=== PATIENT | female | born 1945 | race Caucasian/White ===

== ENCOUNTER 2018-12-06 22:01 | Emergency (ER) | payer MEDICARE ==
[2018-12-06 22:09] VITALS: RESP 20
--- NOTE | 2018-12-06 23:00 | ED ---
Extremity Problem HPI - General Chief complaint: Extremity Problem,Nontraumatic Stated complaint: Swollen leg Time Seen by Provider: 12/06/18 22:16 Source: patient, family Mode of arrival: wheelchair Limitations: no limitations - History of Present Illness Initial comments: Patient is 73-year-old female presenting to emergency Department with a chief co mplaint of leg swelling. Patient reports she has recently been started on Eliquis. Patient reports she woke up this morning and noticed a "lump" in the left infrapatellar region. Patient denies any erythema. Patient denies trauma to the region. Patient reports the left lower extremity is discolored due to multiple surgeries. Patient reports she is on a maintenance dose of Doxy. Patient reports she previously had cellulitis in that region. Patient denies any calf tenderness. Patient denies shortness of breath. Patient denies any fevers or chills. Patient reports bilateral lower extremity edema at baseline - Related Data Allergies Allergy/AdvReac Type Severity Reaction Status Date / Time No Known Allergies Allergy Verified 12/06/18 22:08 Review of Systems ROS Statement: Those systems with pertinent positive or pertinent negative responses have been documented in the HPI. ROS Other: All systems not noted in ROS Statement are negative. Past Medical History Past Medical History: Atrial Fibrillation Additional Past Medical History / Comment(s): MS History of Any Multi-Drug Resistant Organisms: MRSA Date of last positivie culture/infection: 2009 MDRO Source:: left knee Past Surgical History: Joint Replacement Past Psychological History: Depression Smoking Status: Former smoker Past Alcohol Use History: None Reported Past Drug Use History: None Reported General Exam Limitations: no limitations General appearance: alert, in no apparent distress, obese Head exam: Present: atraumatic, normocephalic, normal inspection Eye exam: Present: normal appearance, PERRL, EOMI Pupils: Present: normal accommodation ENT exam: Present: normal exam, mucous membranes moist, normal external ear exam Neck exam: Present: normal inspection, full ROM Respiratory exam: Present: normal lung sounds bilaterally, respiratory distress, rhonchi Cardiovascular Exam: Present: regular rate, normal rhythm, normal heart sounds Extremities exam: Absent: normal inspection, calf tenderness Course Vital Signs 12/06/18 12/07/18 22:04 00:37 Temperature 97.8 F 97.6 F Pulse Rate 89 93 Respiratory 20 20 Rate Blood Pressure 107/68 134/73 O2 Sat by Pulse 97 96 Oximetry Medical Decision Making - Medical Decision Making Patient is 73-year-old male presenting to emergency Department with a chief complaint of a lump in the leg. She reports she noticed an enlarged area near the left infrapatellar region. She does not have any pain with palpation or at rest. Negative Homans bilaterally. On physical examination the slightly edematous area does not appear to be infected. No erythema or discharge noted. No induration. Patient has no fever or chills. Patient is on a maintenance dose of doxycycline. X-ray of the left leg is unremarkable except for subcutaneous edema. Patient advised to follow up primary care. Strict return parameters were thoroughly discussed with the patient who was understanding and agreeable. Case discussed physician. Disposition Clinical Impression: Left leg swelling Disposition: HOME SELF-CARE Condition: Stable Instructions (If sedation given, give patient instructions): Leg Edema (ED) Additional Instructions: Please follow with primary care. Please return to emergency department if symptoms worsen. Is patient prescribed a controlled substance at d/c from ED?: No Referrals: Ji Shepherd DO [Primary Care Provider] - 1-2 days Time of Disposition: 00:28
--- NOTE | 2018-12-07 00:15 | XR ---
LEFT TIB/FIB, 2 VIEWS INDICATION: Infrapatellar swelling COMPARISON: None FINDINGS: AP and lateral views of the left tibia-fibula are provided. There is a left total knee arthroplasty with cemented tibial component. There is no significant periprosthetic lucency. The bones are severely osteopenic. No acute fracture is identified. There is generalized subcutaneous edema. IMPRESSION: 1. No visible fracture. 2. Visualized distal portion of a left total knee arthroplasty without evident hardware complication. 3. Generalized subcutaneous edema.
[2018-12-07 00:38] VITALS: BP 134/73; PULSE 93; TEMP 97.6
== END 2018-12-07 00:41 | disposition home or self-care (01) ==
LOC: EC 22:01
DX: M79.89 Other specified soft tissue disorders (principal); Z87.891 Personal history of nicotine dependence; Z96.652 Presence of left artificial knee joint
CPT/HCPCS: 99283

== ENCOUNTER 2022-06-12 17:28 | Inpatient (IN) | payer MEDICARE, OTHER ==
[2022-06-12 19:03] LABS: Glucose,Whole Blood 115 mg/dL (70-110)
[2022-06-12 19:25] LABS: Anisocytosis Slight; Basophils % (A) 0 %; Eosinophils % (A) 0 %; HGB 7.4 gm/dL (11.4-16.0); Hypochromasia Slight; Lymphocytes # (A) 0.4 k/uL (1.0-4.8); Lymphocytes % (A) 10 %; MCH 29.3 pg (25.0-35.0); MCHC 30.9 g/dL (31.0-37.0); MCV 94.9 fL (80.0-100.0); Mean Platelet Volume 8.4; Monocytes # (A) 0.3 k/uL (0-1.0); Monocytes % (A) 8 %; Neutrophils % (A) 79 %; Platelet Count 133 k/uL (150-450); RBC 2.52 m/uL (3.80-5.40); RDW 17.8 % (11.5-15.5); WBC 3.8 k/uL (3.8-10.6)
--- NOTE | 2022-06-12 19:34 | XR ---
EXAMINATION TYPE: XR chest 1V DATE OF EXAM: 06/12/2022 7:27 PM COMPARISON: none TECHNIQUE: XR chest 1V Portable AP radiograph of the chest. CLINICAL INDICATION:Female, 77 years old with history of altered mental status; FINDINGS: Lungs/Pleura: There is no evidence of pleural effusion, focal consolidation, or pneumothorax. Pulmonary vascularity: Pulmonary vascular congestion. Heart/mediastinum: Cardiomediastinal silhouette is enlarged . Musculoskeletal: No acute osseous pathology. IMPRESSION: Generalized hazy appearance of the lungs Correlate with BNP for congestive heart failure.
[2022-06-12 19:36] LABS: Albumin 2.9 g/dL (3.5-5.0); Calcium 7.7 mg/dL (8.4-10.2); Potassium 4.6 mmol/L (3.5-5.1); Total Bilirubin 1.8 mg/dL (0.2-1.3); Total Protein 5.5 g/dL (6.3-8.2)
--- NOTE | 2022-06-12 20:27 | CT ---
EXAMINATION TYPE: CT brain wo con CT DLP: 1213.4 mGycm, Automated exposure control for dose reduction was used. DATE OF EXAM: 06/12/2022 7:54 PM COMPARISON: None. CLINICAL INDICATION:Female, 77 years old with history of altered mental status, AMS TECHNIQUE: Brain: Axial CT images of the brain were obtained with coronal and sagittal reformats created and rev iewed. Contrast used: None. Oral contrast used: None. FINDINGS: Brain: Extra-axial spaces: No abnormal extra-axial fluid collections. Ventricular system: Dilatation in proportion to cerebral atrophy. Cerebral parenchyma: Cerebral atrophy. No acute intraparenchymal hemorrhage or mass effect. The alvarez -white junction is well differentiated. Cerebellum: Unremarkable. Mass effect: No evidence of midline shift. Intracranial vasculature: unremarkable Soft tissues: Normal. Calvarium/osseous structures: No depressed skull fracture. Paranasal sinuses and mastoid air cells: Mild scattered paranasal sinus disease. Visualized orbits: Orbital contents are intact. IMPRESSION: No acute intracranial process.
[2022-06-12 21:30] LABS: ABG Base Excess -1.1 mmol/L; ABG HCO3 22 mmol/L (21-25); ABG Oxygen Saturation 98.9 % (94-97); ABG PCO2 29 mmHg (35-45); ABG PH 7.49 (7.35-7.45); ABG PO2 99 mmHg (83-108); ABG TCO2 23 mmol/L (19-24); Allen Test Performed? Yes
[2022-06-12] MEDS ORDERED: SODIUM CHLORIDE 0.9% 1,000 ML IV ONE (21:44)
--- NOTE | 2022-06-12 22:38 | ED ---
Altered Mental Status HPI - General Chief Complaint: Altered Mental Status Stated Complaint: AMS Time Seen by Provider: 06/12/22 18:22 Source: EMS Mode of arrival: EMS Limitations: altered mental status - History of Present Illness Initial Comments: This patient is a 77-year-old woman who is sent from [facility] to have evaluation of altered mental status. The transfer paperwork does not make clear exactly how long this has been going on. The transfer paperwork does state that the patient was given a dose of Rocephin, a dose of ondansetron and some IV fluid. It is not clear at this point if the patient had actual vomiting or was complaining of nausea. It is noted that the patient's was confused. Here on arrival, the patient is not giving history. MD Complaint: altered mental status -: unknown Severity: severe Consistency of Symptoms: unknown - Related Data Home Medications Medication Instructions Recorded Confirmed Aspirin 81 mg PO DAILY 06/12/22 06/19/22 Clopidogrel [Plavix] 75 mg PO DAILY 06/12/22 06/19/22 Cranberry Fruit [Cranberry] 465 mg PO BID 06/12/22 06/19/22 Dextran/Hypromellose/Glycerin 2 drops BOTH EYES BID@0800,1600 06/12/22 06/19/22 [Genteal Tears 0.1%-0.2%-0.3%] Ferrous Sulfate [Iron (65 MG 325 mg PO DAILY@1800 06/12/22 06/19/22 Elemental)] Furosemide [Lasix] 40 mg PO BID@0800,1600 06/12/22 06/19/22 Lactobacillus Acidophilus 1 cap PO DAILY 06/12/22 06/19/22 [Acidophilus] Levothyroxine Sodium [Synthroid] 137 mcg PO DAILY@0600 06/12/22 06/19/22 Loratadine [Claritin] 10 mg PO DAILY 06/12/22 06/19/22 Magnesium Chloride- Calcium 1 tab PO DAILY 06/12/22 06/19/22 64-106mg Melatonin 3 mg PO HS 06/12/22 06/19/22 Mirabegron [Myrbetriq] 50 mg PO DAILY 06/12/22 06/19/22 Multivitamins, Thera [Multivitamin 1 tab PO DAILY 06/12/22 06/19/22 (formulary)] Pantoprazole [Protonix] 40 mg PO DAILY 06/12/22 06/19/22 Potassium Chloride ER [K-Dur 20] 20 meq PO BID-W/MEALS 06/12/22 06/19/22 Spironolactone 25 mg PO DAILY 06/12/22 06/19/22 bisacodyL [Dulcolax] 10 mg PO HS 06/12/22 06/19/22 Calcium Carbonate [Calcium] 600 mg PO DAILY 06/19/22 06/19/22 levETIRAcetam [Keppra] 500 mg PO BID 06/19/22 06/19/22 Previous Rx's Medication Instructions Recorded Levofloxacin [Levaquin] 250 mg PO DAILY 6 Days #6 tablet 06/17/22 Allergies Allergy/AdvReac Type Severity Reaction Status Date / Time No Known Allergies Allergy Verified 06/19/22 20:03 Review of Systems ROS Statement: Those systems with pertinent positive or pertinent negative responses have been documented in the HPI. ROS Other: All systems not noted in ROS Statement are negative. Limitations: ROS unobtainable due to patients medical condition Constitutional: Denies: fever Past Medical History Past Medical History: Atrial Fibrillation, GERD/Reflux, Hypertension, Thyroid Disorder Additional Past Medical History / Comment(s): MS History of Any Multi-Drug Resistant Organisms: MRSA Date of last positivie culture/infection: 2009 MDRO Source:: left knee Past Surgical History: Unable to Obtain, Joint Replacement Past Psychological History: Depression Past Alcohol Use History: None Reported Past Drug Use History: None Reported General Exam Limitations: altered mental status General appearance: obtunded Head exam: Present: atraumatic, normocephalic Eye exam: Present: normal appearance, PERRL. Absent: scleral icterus, conjun ctival injection ENT exam: Present: mucous membranes dry Neck exam: Present: normal inspection. Absent: tenderness Respiratory exam: Present: rales, rhonchi. Absent: respiratory distress, wheezes, stridor, accessory muscle use Cardiovascular Exam: Present: regular rate, normal rhythm, normal heart sounds. Absent: systolic murmur, diastolic murmur, rubs, gallop GI/Abdominal exam: Present: soft. Absent: distended, tenderness, guarding, rebound, rigid, mass Extremities exam: Present: normal capillary refill, pedal edema. Absent: tenderness Neurological exam: Present: altered. Absent: motor sensory deficit Expanded Cranial nerves: Gag Reflex: Normal Eye Response: (3) open to voice Motor Response: (6) obeys commands Verbal Response: incomprehensible sounds Gonsalo Total: 12 Skin exam: Present: warm, dry, intact, normal color. Absent: rash Course Vital Signs 06/12/22 06/12/22 06/12/22 17:37 18:46 20:00 Temperature 99.1 F Pulse Rate 77 79 76 Respiratory 18 18 15 Rate Blood Pressure 90/44 97/46 104/44 O2 Sat by Pulse 97 96 97 Oximetry 06/12/22 06/12/22 06/12/22 20:01 22:21 22:40 Temperature Pulse Rate 75 73 Respiratory 15 14 Rate Blood Pressure 101/42 101/62 110/66 O2 Sat by Pulse 96 97 Oximetry 06/12/22 06/12/22 06/12/22 23:00 23:20 23:51 Temperature Pulse Rate 68 68 78 Respiratory 13 14 12 Rate Blood Pressure 112/48 84/39 105/52 O2 Sat by Pulse 97 97 98 Oximetry 06/13/22 06/13/22 06/13/22 00:16 01:31 03:18 Temperature 97.6 F Pulse Rate 73 77 71 Respiratory 14 12 14 Rate Blood Pressure 108/49 113/51 108/53 O2 Sat by Pulse 98 98 97 Oximetry 06/13/22 04:09 Temperature Pulse Rate 79 Respiratory 12 Rate Blood Pressure 104/54 O2 Sat by Pulse 97 Oximetry Procedures - Sepsis Sepsis Focused Exam #1 Capillary Refill: < 2 Seconds: Fingers Peripheral Pulses: Normal: Radial (R) Skin Color: Flushed Respiratory Exam: rales, rhonchi Cardiovascular Exam: regular rate, normal rhythm Medical Decision Making - Medical Decision Making This patient is 77-year-old woman sent from [facility] for altered mental status. The patient had chest x-ray which I interpreted as not showing acute infiltrate or pneumothorax. Possible congestive heart failure The patient had CT brain which I interpreted as not showing acute bony trauma or any cerebral hemorrhage I did have discussion with the patient's next of carey, namely her son and [id number]. Additional history reveals that the patient had somewhat similar presentation with past urinary tract infection. She does have urinary tract infection today. Patient is started on IV antibiotics fluids, and admitted for further care. I had discussion of the patient's CODE STATUS and they state that at this point they would like her to remain full code, though they would reconsider if she were sicker with no prospect of recovery. Was pt. sent in by a medical professional or institution (ROBERTO Huff, [employer] ASS[employer] SUPERVIS[employer] CHASSIS, urgent care, hospital, or [facility]...) When possible be specific @ -[Sent from [facility] Did you speak to anyone other than the patient for history (EMS, parent, family, police, friend...)? What history was obtained from this source @ -[Case discussed with family members Did you review nursing and triage notes (agree or disagree)? Why? @ -[I reviewed and agree with nursing and triage notes] Were old charts reviewed (outside hosp., previous admission, EMS record, old EKG, old radiological studies, urgent care reports/EKG's, [facility] records)? Report findings @ -[[facility] transfer papers reviewed, previous records reviewed Differential Diagnosis (chest pain, altered mental status, abdominal pain women, abdominal pain men, vaginal bleeding, weakness, fever, dyspnea, syncope, headache, dizziness, GI bleed, back pain, seizure, CVA, palpatations, mental health, musculoskeletal)? @ -Differential Altered Mental Status: Hypoglycemia, DKA, hypercapnia, ETOH, overdose, CO poisoning, trauma, myxedema coma, HTN encephalopathy, infection, encephalitis, psychosis, intercranial hemorrhage, hepatic encephalopathy, meningitis, CVA, this is not meant to be an all-inclusive list EKG interpreted by me (3pts min.). @ -[As above] X-rays interpreted by me (1pt min.). @ -[As above CT interpreted by me (1pt min.). @ -[As above U/S interpreted by me (1pt. min.). @ -[None done] What testing was considered but not performed or refused? (CT, X-rays, U/S, labs)? Why? @ -[None] What meds were considered but not given or refused? Why? @ -[None] Did you discuss the management of the patient with other professionals (donna quesada i.e. ROBERTO Huff, [employer] SUPER[employer], lab, RT, psych nurse, social media designer, cutting machine fixer, teacher, health officer, briefcase sewer)? Give summary @ -[Case discussed with admitting physician Was smoking cessation discussed for >3mins.? @ -[No] Was critical care preformed (if so, how long)? @ -[No] Were there social determinants of health that impacted care today? How? (Homelessness, low income, unemployed, alcoholism, drug addiction, transportation, low edu. Level, literacy, decrease access to med. care, penitentiary, rehab)? @ -[No] Was there de-escalation of care discussed even if they declined (Discuss DNR or withdrawal of care, Hospice)? DNR status @ -[Yes What co-morbidities impacted this encounter? (DM, HTN, Smoking, COPD, CAD, Cancer, CVA, ARF, Chemo, Hep., AIDS, mental health diagnosis, sleep apnea, morbid obesity)? @ -[None] Was patient admitted / discharged? Hospital course, mention meds given and route, prescriptions, significant lab abnormalities, going to OR and other pertinent info. @ -[Admitted Undiagnosed new problem with uncertain prognosis? @ -[No] Drug Therapy requiring intensive monitoring for toxicity (Heparin, Nitro, Insulin, Cardizem)? @ -[No] Were any procedures done? @ -[No] Diagnosis/symptom? @ -[1. Acute altered mental status 2. Acute urinary tract infection, complicated 3. Chronic anemia Acute, or Chronic, or Acute on Chronic? @ -[default] Uncomplicated (without systemic symptoms) or Complicated (systemic symptoms)? @ -[default] Side effects of treatment? @ -[No] Exacerbation, Progression, or Severe Exacerbation? @ -[No] Poses a threat to life or bodily function? How? (Chest pain, [place], [place], pneumonia, PE, COPD, DKA, ARF, appy, cholecystitis, CVA, Diverticulitis, Homicidal, Suicidal, threat to staff... and all critical care pts) @ -[Yes - Lab Data Result diagrams: 06/17/22 05:59 06/17/22 05:59 Lab Results 06/12/22 06/12/22 06/12/22 Range/Units 18:57 19:03 19:03 WBC 3.8 (3.8-10.6) k/uL RBC 2.52 L (3.80-5.40) m/uL Hgb 7.4 L (11.4-16.0) gm/dL Hct 24.0 L (34.0-46.0) % MCV 94.9 (80.0-100.0) fL MCH 29.3 (25.0-35.0) pg MCHC 30.9 L (31.0-37.0) g/dL RDW 17.8 H (11.5-15.5) % Plt Count 133 L (150-450) k/uL MPV 8.4 Neutrophils % 79 % Lymphocytes % 10 % Monocytes % 8 % Eosinophils % 0 % Basophils % 0 % Neutrophils # 3.0 (1.3-7.7) k/uL Lymphocytes # 0.4 L (1.0-4.8) k/uL Monocytes # 0.3 (0-1.0) k/uL Eosinophils # 0.0 (0-0.7) k/uL Basophils # 0.0 (0-0.2) k/uL Hypochromasia Slight Anisocytosis Slight Sample Site ABG pH (7.35-7.45) ABG pCO2 (35-45) mmHg ABG pO2 (83-108) mmHg ABG HCO3 (21-25) mmol/L ABG Total CO2 (19-24) mmol/L ABG O2 Saturation (94-97) % ABG Base Excess mmol/L Kennedy Test FiO2 % Sodium 139 (137-145) mmol/L Potassium 4.6 (3.5-5.1) mmol/L Chloride 109 H (98-107) mmol/L Carbon Dioxide 22 (22-30) mmol/L Anion Gap 8 mmol/L BUN 47 H (7-17) mg/dL Creatinine 1.51 H (0.52-1.04) mg/dL Est GFR (CKD-EPI)AfAm 38 (>60 ml/min/1.73 sqM) Est GFR (CKD-EPI)NonAf 33 (>60 ml/min/1.73 sqM) Glucose 103 H (74-99) mg/dL POC Glucose (mg/dL) 115 H (70-110) mg/dL POC Glu Baggage And Mail Agent ID Rama Liz Calcium 7.7 L (8.4-10.2) mg/dL Total Bilirubin 1.8 H (0.2-1.3) mg/dL AST 26 (14-36) U/L ALT 17 (4-34) U/L Alkaline Phosphatase 58 (38-126) U/L Troponin I (0.000-0.034) ng/mL NT-Pro-B Natriuret Pep pg/mL Total Protein 5.5 L (6.3-8.2) g/dL Albumin 2.9 L (3.5-5.0) g/dL Procalcitonin (0.02-0.09) ng/mL TSH (0.350-5.500) uIU/mL Urine Color Urine Appearance (Clear) Urine pH (5.0-8.0) Ur Specific [place] (1.001-1.035) Urine Protein (Negative) Urine Glucose (UA) (Negative) Urine Ketones (Negative) Urine Blood (Negative) Urine Nitrite (Negative) Urine Bilirubin (Negative) Urine Urobilinogen (<2.0) mg/dL Ur Leukocyte Esterase (Negative) Urine RBC (0-5) /hpf Urine WBC (0-5) /hpf Urine Bacteria (None) /hpf Urine Mucus (None) /hpf Coronavirus (PCR) (Not Detectd) 06/12/22 06/12/22 06/12/22 Range/Units 19:03 21:21 21:49 WBC (3.8-10.6) k/uL RBC (3.80-5.40) m/uL Hgb (11.4-16.0) gm/dL Hct (34.0-46.0) % MCV (80.0-100.0) fL MCH (25.0-35.0) pg MCHC (31.0-37.0) g/dL RDW (11.5-15.5) % Plt Count (150-450) k/uL MPV Neutrophils % % Lymphocytes % % Monocytes % % Eosinophils % % Basophils % % Neutrophils # (1.3-7.7) k/uL Lymphocytes # (1.0-4.8) k/uL Monocytes # (0-1.0) k/uL Eosinophils # (0-0.7) k/uL Basophils # (0-0.2) k/uL Hypochromasia Anisocytosis Sample Site left radial ABG pH 7.49 H (7.35-7.45) ABG pCO2 29 L (35-45) mmHg ABG pO2 99 (83-108) mmHg ABG HCO3 22 (21-25) mmol/L ABG Total CO2 23 (19-24) mmol/L ABG O2 Saturation 98.9 H (94-97) % ABG Base Excess -1.1 mmol/L Kennedy Test Yes FiO2 21 % Sodium (137-145) mmol/L Potassium (3.5-5.1) mmol/L Chloride (98-107) mmol/L Carbon Dioxide (22-30) mmol/L Anion Gap mmol/L BUN (7-17) mg/dL Creatinine (0.52-1.04) mg/dL Est GFR (CKD-EPI)AfAm (>60 ml/min/1.73 sqM) Est GFR (CKD-EPI)NonAf (>60 ml/min/1.73 sqM) Glucose (74-99) mg/dL POC Glucose (mg/dL) (70-110) mg/dL POC Glu Baggage And Mail Agent ID Calcium (8.4-10.2) mg/dL Total Bilirubin (0.2-1.3) mg/dL AST (14-36) U/L ALT (4-34) U/L Alkaline Phosphatase (38-126) U/L Troponin I <0.012 (0.000-0.034) ng/mL NT-Pro-B Natriuret Pep 1370 pg/mL Total Protein (6.3-8.2) g/dL Albumin (3.5-5.0) g/dL Procalcitonin (0.02-0.09) ng/mL TSH (0.350-5.500) uIU/mL Urine Color Urine Appearance (Clear) Urine pH (5.0-8.0) Ur Specific [place] (1.001-1.035) Urine Protein (Negative) Urine Glucose (UA) (Negative) Urine Ketones (Negative) Urine Blood (Negative) Urine Nitrite (Negative) Urine Bilirubin (Negative) Urine Urobilinogen (<2.0) mg/dL Ur Leukocyte Esterase (Negative) Urine RBC (0-5) /hpf Urine WBC (0-5) /hpf Urine Bacteria (None) /hpf Urine Mucus (None) /hpf Coronavirus (PCR) (Not Detectd) 06/12/22 06/12/22 06/12/22 Range/Units 21:49 21:49 22:12 WBC (3.8-10.6) k/uL RBC (3.80-5.40) m/uL Hgb (11.4-16.0) gm/dL Hct (34.0-46.0) % MCV (80.0-100.0) fL MCH (25.0-35.0) pg MCHC (31.0-37.0) g/dL RDW (11.5-15.5) % Plt Count (150-450) k/uL MPV Neutrophils % % Lymphocytes % % Monocytes % % Eosinophils % % Basophils % % Neutrophils # (1.3-7.7) k/uL Lymphocytes # (1.0-4.8) k/uL Monocytes # (0-1.0) k/uL Eosinophils # (0-0.7) k/uL Basophils # (0-0.2) k/uL Hypochromasia Anisocytosis Sample Site ABG pH (7.35-7.45) ABG pCO2 (35-45) mmHg ABG pO2 (83-108) mmHg ABG HCO3 (21-25) mmol/L ABG Total CO2 (19-24) mmol/L ABG O2 Saturation (94-97) % ABG Base Excess mmol/L Kennedy Test FiO2 % Sodium (137-145) mmol/L Potassium (3.5-5.1) mmol/L Chloride (98-107) mmol/L Carbon Dioxide (22-30) mmol/L Anion Gap mmol/L BUN (7-17) mg/dL Creatinine (0.52-1.04) mg/dL Est GFR (CKD-EPI)AfAm (>60 ml/min/1.73 sqM) Est GFR (CKD-EPI)NonAf (>60 ml/min/1.73 sqM) Glucose (74-99) mg/dL POC Glucose (mg/dL) (70-110) mg/dL POC Glu Baggage And Mail Agent ID Calcium (8.4-10.2) mg/dL Total Bilirubin (0.2-1.3) mg/dL AST (14-36) U/L ALT (4-34) U/L Alkaline Phosphatase (38-126) U/L Troponin I (0.000-0.034) ng/mL NT-Pro-B Natriuret Pep pg/mL Total Protein (6.3-8.2) g/dL Albumin (3.5-5.0) g/dL Procalcitonin 0.12 H (0.02-0.09) ng/mL TSH 2.890 (0.350-5.500) uIU/mL Urine Color Urine Appearance (Clear) Urine pH (5.0-8.0) Ur Specific [place] (1.001-1.035) Urine Protein (Negative) Urine Glucose (UA) (Negative) Urine Ketones (Negative) Urine Blood (Negative) Urine Nitrite (Negative) Urine Bilirubin (Negative) Urine Urobilinogen (<2.0) mg/dL Ur Leukocyte Esterase (Negative) Urine RBC (0-5) /hpf Urine WBC (0-5) /hpf Urine Bacteria (None) /hpf Urine Mucus (None) /hpf Coronavirus (PCR) Not Detected (Not Detectd) 06/12/22 Range/Units 22:32 WBC (3.8-10.6) k/uL RBC (3.80-5.40) m/uL Hgb (11.4-16.0) gm/dL Hct (34.0-46.0) % MCV (80.0-100.0) fL MCH (25.0-35.0) pg MCHC (31.0-37.0) g/dL RDW (11.5-15.5) % Plt Count (150-450) k/uL MPV Neutrophils % % Lymphocytes % % Monocytes % % Eosinophils % % Basophils % % Neutrophils # (1.3-7.7) k/uL Lymphocytes # (1.0-4.8) k/uL Monocytes # (0-1.0) k/uL Eosinophils # (0-0.7) k/uL Basophils # (0-0.2) k/uL Hypochromasia Anisocytosis Sample Site ABG pH (7.35-7.45) ABG pCO2 (35-45) mmHg ABG pO2 (83-108) mmHg ABG HCO3 (21-25) mmol/L ABG Total CO2 (19-24) mmol/L ABG O2 Saturation (94-97) % ABG Base Excess mmol/L Kennedy Test FiO2 % Sodium (137-145) mmol/L Potassium (3.5-5.1) mmol/L Chloride (98-107) mmol/L Carbon Dioxide (22-30) mmol/L Anion Gap mmol/L BUN (7-17) mg/dL Creatinine (0.52-1.04) mg/dL Est GFR (CKD-EPI)AfAm (>60 ml/min/1.73 sqM) Est GFR (CKD-EPI)NonAf (>60 ml/min/1.73 sqM) Glucose (74-99) mg/dL POC Glucose (mg/dL) (70-110) mg/dL POC Glu Baggage And Mail Agent ID Calcium (8.4-10.2) mg/dL Total Bilirubin (0.2-1.3) mg/dL AST (14-36) U/L ALT (4-34) U/L Alkaline Phosphatase (38-126) U/L Troponin I (0.000-0.034) ng/mL NT-Pro-B Natriuret Pep pg/mL Total Protein (6.3-8.2) g/dL Albumin (3.5-5.0) g/dL Procalcitonin (0.02-0.09) ng/mL TSH (0.350-5.500) uIU/mL Urine Color Yellow Urine Appearance Turbid H (Clear) Urine pH 7.5 (5.0-8.0) Ur Specific [place] 1.016 (1.001-1.035) Urine Protein 1+ H (Negative) Urine Glucose (UA) Negative (Negative) Urine Ketones Trace H (Negative) Urine Blood Large H (Negative) Urine Nitrite Negative (Negative) Urine Bilirubin Negative (Negative) Urine Urobilinogen 4.0 (<2.0) mg/dL Ur Leukocyte Esterase Large H (Negative) Urine RBC >182 H (0-5) /hpf Urine WBC >182 H (0-5) /hpf Urine Bacteria Many H (None) /hpf Urine Mucus Few H (None) /hpf Coronavirus (PCR) (Not Detectd) - EKG Data -: EKG Interpreted by Me EKG shows normal: sinus rhythm, axis (Normal), intervals (Normal), QRS complexes (Low-voltage QRS complex. Possible old anterior infarct.) Rate: normal (Rate 75 bpm) Critical Care Time Critical Care Time: Yes (30 minutes) Disposition Clinical Impression: Altered mental status, Urinary tract infection, Anemia Disposition: ADMITTED IP TO THIS [facility] Condition: Stable
[2022-06-12 22:47] LABS: Appearance,Urine Turbid (Clear); Bacteria,Urine Many /hpf; Bilirubin,Urine Negative (Negative); Blood,Urine Large (Negative); Color,Urine Yellow; Glucose,Urine (UA) Negative (Negative); Ketones,Urine Trace (Negative); Leukocyte Esterase,Urine Large (Negative); Mucus,Urine Few /hpf; Nitrite,Urine Negative (Negative); PH, Urine 7.5 (5.0-8.0); Protein,Urine 1+ (Negative); RBC,Urine >182 /hpf (0-5); Specific Gravity,Urine 1.016 (1.001-1.035); WBC,Urine >182 /hpf (0-5)
[2022-06-12] MEDS ORDERED: ACETAMINOPHEN TAB 325 MG TAB PO PRN (22:51)
[2022-06-12] MEDS ORDERED: NALOXONE 0.4 MG/ML 1 ML VIAL IV PRN (22:51)
[2022-06-12] MEDS ORDERED: SODIUM CHLORIDE 0.9% 1,000 ML IV SCH (23:00)
--- NOTE | 2022-06-12 23:23 | CT ---
EXAMINATION TYPE: CT abdomen pelvis wo con DATE OF EXAM: 06/12/2022 COMPARISON: None HISTORY: ABD PAIN CT DLP: 2548 mGycm Automated exposure control for dose reduction was used. Images obtained from the diaphragm to the floor the pelvis with no contrast. There is small right pleural effusion. Heart size is fairly normal. No pericardial effusion. There is mild interstitial increased density at the lung bases. The spleen is enlarged and measures 16.5 cm. The stomach appears intact. Gallbladder is intact. The b ile ducts are nondilated. No sign of pancreatic mass. There is a large staghorn calculus in the right kidney. The calculus measures 6 cm in length. No hydronephrosis. Ureters are not dilated. No retrope ritoneal adenopathy. Bladder distends smoothly. There is left hip prosthesis. Sacroiliac joints are i ntact. The bony pelvis is intact. There is subcutaneous edema around the abdomen and pelvis. There is posterior fusion surgery with rods and screws from L3 to L5. There is 25% compression deform ity of L5. There is osteopenia. No evidence of ascites or free air. No sign of a bowel obstruction. There is retained fecal material throughout the large bowel. IMPRESSION: Constipation. Splenomegaly. Large right side staghorn renal calculus. Subcutaneous edema around the abdomen with right pleural effusion. This could be some mild chronic he art failure. Mild interstitial infiltrates at the lung bases.
[2022-06-12] MEDS ORDERED: SODIUM CHLORIDE 0.9% 500 ML 500 ML IV STA (23:28)
--- NOTE | 2022-06-13 03:44 | P.HPIM ---
History of Present Illness H&P Date: 06/12/22 Chief Complaint: altered mental status 77 year old female with hypothyroid , afib patient is a NHR, she was sent in here for altered mental status, patient unable to provide any meaningful history , which was obtained by reviewing medical records. transfer records does not indicate duration , or baseline of patient . it seems like she had similar scenario in the past where she was found to have UTI at the time. patient baseline is unknown, [facility], and she is full code. patient is non verbal , sleeping , resists opening eyes, or moving her extremities. resists opening mouth , but when left alone , she takes a more relaxed posture. vital signs stable no other history available at this time Review of Systems ROS unobtainable: due to mental status Past Medical History Past Medical History: Atrial Fibrillation, GERD/Reflux, Hypertension, Thyroid Disorder Additional Past Medical History / Comment(s): MS History of Any Multi-Drug Resistant Organisms: MRSA Date of last positivie culture/infection: 2009 MDRO Source:: left knee Past Surgical History: Unable to Obtain, Joint Replacement Past Psychological History: Depression Past Alcohol Use History: None Reported Past Drug Use History: None Reported Medications and Allergies Home Medications Medication Instructions Recorded Confirmed Type Aspirin 81 mg PO DAILY 06/12/22 06/12/22 History Calcium Carbonate/Vitamin D3 1 tab PO DAILY 06/12/22 06/12/22 History [Calcium 600 mg-Vit D3 5 mcg (200 unit)] Clopidogrel [Plavix] 75 mg PO DAILY 06/12/22 06/12/22 History Cranberry Fruit [Cranberry] 465 mg PO BID 06/12/22 06/12/22 History Cyclobenzaprine [Flexeril] 10 mg PO Q8H PRN 06/12/22 06/12/22 History Dextran/Hypromellose/Glycerin 2 drops BOTH EYES BID 06/12/22 06/12/22 History [Genteal Tears 0.1%-0.2%-0.3%] Doxycycline Monohydrate 100 mg PO BID 06/12/22 06/12/22 History Ferrous Sulfate [Feosol] 325 mg PO HS 06/12/22 06/12/22 History Furosemide [Lasix] 40 mg PO BID 06/12/22 06/12/22 History Lactobacillus Acidophilus 1 cap PO DAILY 06/12/22 06/12/22 History [Acidophilus] Levothyroxine Sodium [Synthroid] 137 mcg PO DAILY 06/12/22 06/12/22 History Lidocaine/Menthol [Icy Hot 4%-1% 1 patch TOPICAL DAILY PRN 06/12/22 06/12/22 History Patch] Loratadine [Claritin] 10 mg PO DAILY 06/12/22 06/12/22 History Magnesium Chloride- Calcium 1 tab PO DAILY 06/12/22 06/12/22 History 64-106mg Melatonin 3 mg PO HS PRN 06/12/22 06/12/22 History Mirabegron [Myrbetriq] 50 mg PO DAILY 06/12/22 06/12/22 History Multivitamins, Thera [Multivitamin 1 tab PO HS 06/12/22 06/12/22 History (formulary)] Pantoprazole [Protonix] 40 mg PO DAILY 06/12/22 06/12/22 History Potassium Chloride ER [K-Dur 20] 40 meq PO BID-W/MEALS 06/12/22 06/12/22 History Promethazine HCl 12.5 mg PO Q6H PRN 06/12/22 06/12/22 History Spironolactone 25 mg PO DAILY 06/12/22 06/12/22 History bisacodyL [Dulcolax] 10 mg PO HS PRN 06/12/22 06/12/22 History traMADol HCL 50 mg PO Q12H PRN 06/12/22 06/12/22 History Allergies Allergy/AdvReac Type Severity Reaction Status Date / Time No Known Allergies Allergy Verified 06/12/22 20:12 Physical Exam Vitals: Vital Signs Temp Pulse Resp BP Pulse Ox 06/12/22 20:01 75 15 101/42 96 06/12/22 20:00 76 15 104/44 97 06/12/22 18:46 79 18 97/46 96 06/12/22 17:37 99.1 F 77 18 90/44 97 Intake and Output 06/12/22 06/12/22 06/12/22 06:59 14:59 22:59 Other: Weight 108.862 kg Constitutional: non verbal , resists opening eyes, resists moving her extremities, does not follow commands, then she assumes a more relaxed posture when left alone. Eyes: scleral jaundice, moist conjunctiva, Pupils equal round reactive to light ENMT: NC/AT resists opening her mouth Neck: no masses, or JVD No carotid bruits No thyromegaly Lungs: Clear to auscultation Clear to percussion Normal respiratory effort, no accessory muscle use Cardiovascular: Heart regular in rate and rhythm, No murmurs, gallops, or rubs +3 bilateral peripheral edema Abdominal: Soft Nontender, no guarding, rebound or rigidity Abdomen moving with respiration Normoactive bowel sounds No hepatomegaly, No splenomegaly No palpable mass No abdominal wall hernia noted Skin: Normal temperature, tone, texture, turgor chronic skin changes of bilateral lower extremities Extremities: No digital cyanosis No clubbing Pedal pulses intact and symmetrical Radial pulses intact and symmetrical No calf tenderness Psychiatric: patient resists care, sleeping , resists opening eyes, non Verbal , unknown baseline Neuro unable to perform proper neuro exam , when attempting to move her leg or arms, she tense up and resists passive movement Lymphatics: no palpable cervical or supraclavicular lymph nodes Results CBC & Chem 7: 06/12/22 19:03 06/12/22 19:03 Labs: Abnormal Lab Results - Last 24 Hours (Table) 06/12/22 06/12/22 06/12/22 Range/Units 18:57 19:03 19:03 RBC 2.52 L (3.80-5.40) m/uL Hgb 7.4 L (11.4-16.0) gm/dL Hct 24.0 L (34.0-46.0) % MCHC 30.9 L (31.0-37.0) g/dL RDW 17.8 H (11.5-15.5) % Plt Count 133 L (150-450) k/uL Lymphocytes # 0.4 L (1.0-4.8) k/uL Chloride 109 H (98-107) mmol/L BUN 47 H (7-17) mg/dL Creatinine 1.51 H (0.52-1.04) mg/dL Glucose 103 H (74-99) mg/dL POC Glucose (mg/dL) 115 H (70-110) mg/dL Calcium 7.7 L (8.4-10.2) mg/dL Total Bilirubin 1.8 H (0.2-1.3) mg/dL Total Protein 5.5 L (6.3-8.2) g/dL Albumin 2.9 L (3.5-5.0) g/dL Assessment and Plan Assessment: 77 year old female , [facility] in [facility] for altered mental status , I discussed the case with ED doc, limited history available at this time , suspected UTI, I accepted the admission , will start IV antibiotics, and rule out other causes of encephalpathy with anticipated length of stay > 2 midnights acute metabolic encephalopathy UTI , initiate on rocephine 2 gm IVPB daily , follow up cultures rule out seizure , check prolactin level , check EEG CT brain no acute pathology neuro checks , neurology consult CXR hazy changes bilateral lungs , DC IVF, due to CXR changes , peripheral edema initiate lasix IVP 40 mg BID elevated BUN 47 Cr 1.5 unknown if this is RANULFO or CKD monitor renal function , and urine output avoid nephrotoxic meds CT abd showed abd wall edema , pleural effusion , otherwise no acute pathology check echocardiogram check TSH level and free t4 jaundice with elevated bili otherwise liver enzymes unremarkable continue to monitor ABG showed respiratory alkalosis , no hypoxemia check d dimer anemia , hemoglobin 7.4 no reported GI bleeding no evidence of GI bleeding check occult blood test monitor hemoglobin full code DVT PPX mechanical fall precautions
[2022-06-13] MEDS: HEPARIN SODIUM,PORCINE/PF 5,000 UNIT/0.5 ML SYRINGE SQ SCH ×2 (08:17→21:20)
[2022-06-13] MEDS: FUROSEMIDE 10 MG/ML 4 ML VIAL IV SCH ×2 (08:17→21:21)
--- NOTE | 2022-06-13 08:20 | US ---
EXAMINATION TYPE: US venous doppler duplex LE BI DATE OF EXAM: 06/13/2022 7:26 AM COMPARISON: NONE CLINICAL HISTORY: dvt. Septic patient with UTI, large habitus, patient did not respond to questioning SIDE PERFORMED: Bilateral TECHNIQUE: The lower extremity deep venous system is examined utilizing real time linear array sonog nikolas with graded compression, doppler sonography and color-flow sonography. VESSELS IMAGED: Common Femoral Vein Deep Femoral Vein Greater Saphenous Vein * Femoral Vein Popliteal Vein Small Saphenous Vein * Proximal Calf Veins (* superficial vessels) non diagnostic exam due to extensive edema that obscured view of vessels. Right Leg: CFV and FV flow seen, unable to image other vessels due to edema and habitus Left Leg: FV and Pop V flow seen, unable to images other vessels due to edema dn habitus IMPRESSION: Markedly limited examination due to extensive edema that obscures vessels within both lower extremiti es. There is flow demonstrated within the right lower extremity common femoral and femoral veins and left lower extremity femoral and popliteal veins. The remaining vessels are not visualized.
[2022-06-13] MEDS ORDERED: LEVOTHYROXINE IVP 100 MCG/5 ML VIAL IV SCH (09:00)
--- NOTE | 2022-06-13 13:27 | P.CNNES ---
History of Present Illness Consult date: 06/13/22 Requesting physician: Josue Sandhu Reason for Consult: Encephalopathy History of Present Illness: Patient is a 77-year-old female, with history of MS, in remission, paraparesis, nonambulatory status, currently living in [facility] for last 1 year was brought to the hospital by ambulance yesterday at 5:28 PM for altered mental status. Patient's sister was present at this time. She had missed week to patient's son and [id number], who provided with history. They mentioned that patient has history of MS, but is in remission. She has not walked in the last 15 years and is sit to stand transfers, cannot self transfer. Patient used to live with her son and [id number], but in the last 1 year, they were not able to take care of the patient therefore she was moved to [facility]. Patient had previous hist ory of back surgery as well 7 years ago. She hasn't had any flareups of MS, has never tried any disease modifying medications. She is not actively following up with a neurologist. Mentally she is otherwise perfectly fine. 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 Patient was fine on Friday, 2 days prior to arrival. Family got a call from the shelter yesterday (Friday) that she vomited for which they gave her Zofran and then she was lethargic. They felt patient was dehydrated, and try to give some IV fluids. About a couple hours later, they called the son again, saying that the patient was unresponsive, and they were taking her to the hospital. As per EMS flow sheet, when they arrived, patient had altered level of consciousness. Patient was alert to verbal stimuli. Patient will open eyes to voice and then closes them immediately with no response. Prior to [facility] an IV in the patient. Patient's face was symmetric and both pupils equal. EKG shows sinus rhythm. Patient's blood glucose was 131. Patient's blood pressure 100/39 and the repeat was 101/43 and then 90/48. Pulse rate 80, respiration 16 saturation 99%. Temperature 98.7 axillary. Blood pressure on arrival 90/44 pulse rate 99.1 axillary. Blood test shows normal WBC hemoglobin 7.4, platelets 133. Electrolytes are normal, BUN 47, creatinine 1.51. Hepatic panel normal. TSH normal. Bruce virus PCR negative. Prolactin 24.1, UA shows large amount of leukocyte esterase, more than 182 WBC, more than 182 RBC and many bacteria. Urine culture is pending. Patient has been started on ceftriaxone 2 g every 24 hours, Patient at home was taking tramadol 50 mg twice a day when necessary, promethazine 12.5 mg every 6 hours when necessary, Flexeril 10 mg every 8 hours when necessary, aspirin 81 mg, Aldactone 25 mg, potassium, Protonix, Mirabegron, melatonin, Plavix 75 mg, levothyroxine, doxycycline, ferrous sulfate, cranberry. CT head showed no acute intracranial process. Chest x-ray with generalized hazy appearance of the lungs. Correlate with BNP for congestive heart failure. CT abdomen and pelvis revealed constipation, splenomegaly. Large right-sided staghorn renal calculus. Subcutaneous edema around the abdomen with right pleural effusion. This could be some mild chronic heart failure. Mild interstitial infiltrates at the lung bases. EKG shows sinus rhythm venous Doppler showed no definitive DVT. Exam was limited. No history of tobacco or alcohol use. She is not diabetic. Patient has history of atrial fibrillation, for which she used to be on Eliquis. She underwent placement of watchman device on 05/28/2022 at [facility]. Anticoagulants were stopped. Patient also had some blood loss, for which they are not sure if aspirin was continued or was also stopped. Patient has had UTIs in the past but never had mental status like this. Review of Systems ROS unobtainable: due to mental status Past Medical History Past Medical History: Atrial Fibrillation, GERD/Reflux, Hypertension, Thyroid Disorder Additional Past Medical History / Comment(s): MS, watchman device History of Any Multi-Drug Resistant Organisms: MRSA Date of last positivie culture/infection: 2009 MDRO Source:: left knee Past Surgical History: Unable to Obtain, Joint Replacement Past Psychological History: Depression Smoking Status: Never smoker Past Alcohol Use History: None Reported Past Drug Use History: None Reported Medications and Allergies Home Medications Medication Instructions Recorded Confirmed Type Aspirin 81 mg PO DAILY 06/12/22 06/12/22 History Calcium Carbonate/Vitamin D3 1 tab PO DAILY 06/12/22 06/12/22 History [Calcium 600 mg-Vit D3 5 mcg (200 unit)] Clopidogrel [Plavix] 75 mg PO DAILY 06/12/22 06/12/22 History Cranberry Fruit [Cranberry] 465 mg PO BID 06/12/22 06/12/22 History Cyclobenzaprine [Flexeril] 10 mg PO Q8H PRN 06/12/22 06/12/22 History Dextran/Hypromellose/Glycerin 2 drops BOTH EYES BID 06/12/22 06/12/22 History [Genteal Tears 0.1%-0.2%-0.3%] Doxycycline Monohydrate 100 mg PO BID 06/12/22 06/12/22 History Ferrous Sulfate [Feosol] 325 mg PO HS 06/12/22 06/12/22 History Furosemide [Lasix] 40 mg PO BID 06/12/22 06/12/22 History Lactobacillus Acidophilus 1 cap PO DAILY 06/12/22 06/12/22 History [Acidophilus] Levothyroxine Sodium [Synthroid] 137 mcg PO DAILY 06/12/22 06/12/22 History Lidocaine/Menthol [Icy Hot 4%-1% 1 patch TOPICAL DAILY PRN 06/12/22 06/12/22 History Patch] Loratadine [Claritin] 10 mg PO DAILY 06/12/22 06/12/22 History Magnesium Chloride- Calcium 1 tab PO DAILY 06/12/22 06/12/22 History 64-106mg Melatonin 3 mg PO HS PRN 06/12/22 06/12/22 History Mirabegron [Myrbetriq] 50 mg PO DAILY 06/12/22 06/12/22 History Multivitamins, Thera [Multivitamin 1 tab PO HS 06/12/22 06/12/22 History (formulary)] Pantoprazole [Protonix] 40 mg PO DAILY 06/12/22 06/12/22 History Potassium Chloride ER [K-Dur 20] 40 meq PO BID-W/MEALS 06/12/22 06/12/22 History Promethazine HCl 12.5 mg PO Q6H PRN 06/12/22 06/12/22 History Spironolactone 25 mg PO DAILY 06/12/22 06/12/22 History bisacodyL [Dulcolax] 10 mg PO HS PRN 06/12/22 06/12/22 History traMADol HCL 50 mg PO Q12H PRN 06/12/22 06/12/22 History Allergies Allergy/AdvReac Type Severity Reaction Status Date / Time No Known Allergies Allergy Verified 06/12/22 20:12 Physical Examination - Vital Signs Vital Signs: Vital Signs Temp Pulse Pulse Resp BP BP Pulse Ox 06/13/22 06:58 83 16 125/73 100 06/13/22 05:38 97.9 F 83 19 110/57 100 06/13/22 04:09 79 12 104/54 97 06/13/22 03:18 97.6 F 71 14 108/53 97 06/13/22 01:31 77 12 113/51 98 06/13/22 00:16 73 14 108/49 98 06/12/22 23:51 78 12 105/52 98 06/12/22 23:20 68 14 84/39 97 06/12/22 23:00 68 13 112/48 97 06/12/22 22:40 110/66 06/12/22 22:21 73 14 101/62 97 06/12/22 20:01 75 15 101/42 96 06/12/22 20:00 76 15 104/44 97 06/12/22 18:46 79 18 97/46 96 06/12/22 17:37 99.1 F 77 18 90/44 97 Intake and Output 06/12/22 06/13/22 06/13/22 22:59 06:59 14:59 Output Total 1000 Balance -1000 Output: Urine 1000 Other: Voiding Method Diaper External Catheter External Catheter # Voids 1 Weight 108.862 kg 108.862 kg Patient is an elderly female, who is obtunded, lethargic, encephalopathic. Patient obtunded. She is not speaking any words. She only moaned when her left arm was abducted to check for temperature. Patient not following any commands, not speaking any words. Speech and language functions cannot be assessed. Patient sometimes taking deep breathing. No obvious seizure activity noted. Attention, concentration and fund of knowledge cannot be assessed because of severe obtundation. Patient's neck appears quite stiff. Her arms and legs are also stiff. On cranial nerve examination, pupils are equal, round and reacting to light, visual reynaga could not be tested. Patient has slight head and mild gaze deviation to the right. Extraocular muscles could not be tested. Her face is symmetric, lower cranial nerves cannot be tested. On muscle strength testing, patient did not cooperate with testing of the upper extremities, which is normal at baseline. She is extremely rigid in both upper limbs, with some decerebrate posturing of the right arm. Patient is paraplegic, which is chronic. Deep tendon reflexes are trace in the upper limbs, absent in the lower limbs. Plantars is upgoing on the right, flat on the left. Sensory to touch could not be assessed, but patient moans with painful stimuli on either side. Cerebellar function cannot be assessed. Tone is severely increased in bilateral upper limbs and bulk of muscles normal. Gait patient nonambulatory On general examination, there is no carotid bruit or murmur, S1-S2 audible. Chest is clear on consultation. Abdomen is soft nontender. No organomegaly, bowel sounds present. Peripheral pulses are present. No edema. Results - Laboratory Findings CBC and BMP: 06/12/22 19:03 06/12/22 19:03 Abnormal Lab Findings: Abnormal Labs 06/12/22 06/12/22 06/12/22 18:57 19:03 19:03 RBC 2.52 L Hgb 7.4 L Hct 24.0 L MCHC 30.9 L RDW 17.8 H Plt Count 133 L Lymphocytes # 0.4 L D-Dimer ABG pH ABG pCO2 ABG O2 Saturation Chloride 109 H BUN 47 H Creatinine 1.51 H Glucose 103 H POC Glucose (mg/dL) 115 H Calcium 7.7 L Total Bilirubin 1.8 H Total Protein 5.5 L Albumin 2.9 L Procalcitonin Urine Appearance Urine Protein Urine Ketones Urine Blood Ur Leukocyte Esterase Urine RBC Urine WBC Urine Bacteria Urine Mucus 06/12/22 06/12/22 06/12/22 21:21 21:49 22:32 RBC Hgb Hct MCHC RDW Plt Count Lymphocytes # D-Dimer ABG pH 7.49 H ABG pCO2 29 L ABG O2 Saturation 98.9 H Chloride BUN Creatinine Glucose POC Glucose (mg/dL) Calcium Total Bilirubin Total Protein Albumin Procalcitonin 0.12 H Urine Appearance Turbid H Urine Protein 1+ H Urine Ketones Trace H Urine Blood Large H Ur Leukocyte Esterase Large H Urine RBC >182 H Urine WBC >182 H Urine Bacteria Many H Urine Mucus Few H 03/23/23 03:16 RBC Hgb Hct MCHC RDW Plt Count Lymphocytes # D-Dimer 2.81 H ABG pH ABG pCO2 ABG O2 Saturation Chloride BUN Creatinine Glucose POC Glucose (mg/dL) Calcium Total Bilirubin Total Protein Albumin Procalcitonin Urine Appearance Urine Protein Urine Ketones Urine Blood Ur Leukocyte Esterase Urine RBC Urine WBC Urine Bacteria Urine Mucus Assessment and Plan Assessment: * Altered mental status, likely due to toxic metabolic encephalopathy. Patient has an acute UTI. * Patient is severely rigid in the arms and legs, unclear cause, rule out CVA, possible related to underlying MS with acute TME, rule out NMS * History of multiple sclerosis, in remission. Patient is paraplegic, nonambulatory. * Atrial fibrillation, status post placement of watchman device on 05/28/2022. * Staghorn calculus * Obesity * History of back surgery Plan: * CT head showed no acute process. * EEG to rule out any epileptiform activity * 2D-ECHO * B12, folate, CPK. CPK is normal. * Patient has acute UTI. Patient started on Rocephin 2 g every 24 hours. * MRI brain, rule out CVA. Patient has watchman device, therefore need clearance for watchman device before MRI. * Consider lumbar puncture, although probable UTI may be contributing to TME. * Neurology will follow. Thank you for the consult.
[2022-06-13] MEDS ORDERED: bisacodyL 5 MG TABLET.DR PO PRN (14:09)
--- NOTE | 2022-06-13 14:19 | P.PN ---
Subjective Progress Note Date: 06/13/22 Hospital Course: 77-year-old female, longterm resident with a history of MS, hypothyroidism, atrial fibrillation presenting with acute encephalopathy. Per sister, patient is alert and oriented at baseline. She is at longterm due to reduced functional mobility, is currently bedbound. However, she has not had any issues with her mental status. Occasionally she gets urinary tract infection which affects her mentation, but not to this degree. Since presented to the ED, diya ent vital signs were within normal limits. Lab work showed hemoglobin of 7.4, platelet 133, pH 7.49, pCO2 29, creatinine 1.51, BUN 47, TSH 2.89, pro calcitonin 0.12, prolactin 24.1, urinalysis showed large leukocyte esterase, negative nitrites. D-dimer was elevated at 2.81. CT head showed no acute process. CT abdomen and pelvis showed constipation, splenomegaly, large right- sided staghorn renal calculus, mild right pleural effusion. Subjective: Patient seen and examined at bedside. No acute events overnight. Patient is not awake or alert, appears very lethargic. Pertinent positives and negatives as discussed above, a complete review of systems was performed and all other systems are negative. Vitals Signs Reviewed. General: Obtunded Derm: warm, dry Head: atraumatic, normocephalic, symmetric Eyes: Pupils equal and reactive, no scleral icterus Mouth: no lip lesion, mucus membranes moist Cardiovascular: S1S2 reg, no murmur Lungs: CTA bilateral, no rhonchi, no rales , no accessory muscle use Abdominal: soft, nontender to palpation, no guarding, no appreciable organomegaly Ext: no gross muscle atrophy, bilateral lower extremity edema Neuro: No focal deficits, but patient has muscle rigidity Psych: Unable to assess Data Reviewed Today: Pertinent Labs: D-dimer 2.81, lactate 1.6, prolactin 24.1, TSH 2.89 Assessment and Plan: Patient is critically ill, minimally responsive, currently being treated with IV antibiotics. He to rule out seizure and other causes for metabolic encephalopathy. Active: Acute metabolic encephalopathy Urinary tract infection History of kidney stones History of MS Muscular rigidity Right pleural effusion History of CHF Normocytic anemia and thrombocytopenia Elevated BUN and creatinine Hyperbilirubinemia Constipation History of Hypothyroidism -Nephrology consulted this morning, had a personal discussion about management with neurology, EEG pending, patient may need LP. -Continue ceftriaxone 2 g IV every 24 hours -Urine culture pending -Blood cultures ordered -Patient currently on IV diuretics 40 mg Lasix twice a day -Echocardiogram pending -Unsure what her EF is -Unsure what her baseline hemoglobin is, repeat CBC tomorrow -Unsure why patient is on aspirin and Plavix -Per sister, patient had a watchman procedure recently -Holding aspirin and Plavix in case we need an LP -Unsure about baseline renal function, repeat BMP tomorrow -Hyperbilirubinemia likely the setting of acute infection -Bisacodyl suppository for constipation -Currently on IV levothyroxine has patient is unable to tolerate oral intake -Some of the home medications have been reconciled, but will only be able to take it when patient able to tolerate oral DVT ppx: Subcu heparin Code status: Full code Anticipated discharge place: Pending clinical course Anticipated discharge time: Pending clinical course Objective - Vital Signs Vital signs: Vital Signs Temp 98.5 F 06/13/22 13:06 Pulse 83 06/13/22 06:58 Resp 16 06/13/22 06:58 BP 125/73 06/13/22 06:58 Pulse Ox 100 06/13/22 06:58 FiO2 Intake & Output 06/12/22 06/13/22 06/13/22 18:59 06:59 18:59 Output Total 1000 Balance -1000 Weight 108.862 kg 108.862 kg Output: Urine 1000 Other: Voiding Method Diaper External Catheter External Catheter # Voids 1 - Labs CBC & Chem 7: 06/12/22 19:03 06/12/22 19:03 Labs: Abnormal Lab Results - Last 24 Hours (Table) 06/12/22 06/12/22 06/12/22 Range/Units 18:57 19:03 19:03 RBC 2.52 L (3.80-5.40) m/uL Hgb 7.4 L (11.4-16.0) gm/dL Hct 24.0 L (34.0-46.0) % MCHC 30.9 L (31.0-37.0) g/dL RDW 17.8 H (11.5-15.5) % Plt Count 133 L (150-450) k/uL Lymphocytes # 0.4 L (1.0-4.8) k/uL D-Dimer (<0.60) mg/L FEU ABG pH (7.35-7.45) ABG pCO2 (35-45) mmHg ABG O2 Saturation (94-97) % Chloride 109 H (98-107) mmol/L BUN 47 H (7-17) mg/dL Creatinine 1.51 H (0.52-1.04) mg/dL Glucose 103 H (74-99) mg/dL POC Glucose (mg/dL) 115 H (70-110) mg/dL Calcium 7.7 L (8.4-10.2) mg/dL Total Bilirubin 1.8 H (0.2-1.3) mg/dL Total Protein 5.5 L (6.3-8.2) g/dL Albumin 2.9 L (3.5-5.0) g/dL Procalcitonin (0.02-0.09) ng/mL Urine Appearance (Clear) Urine Protein (Negative) Urine Ketones (Negative) Urine Blood (Negative) Ur Leukocyte Esterase (Negative) Urine RBC (0-5) /hpf Urine WBC (0-5) /hpf Urine Bacteria (None) /hpf Urine Mucus (None) /hpf 06/12/22 06/12/22 06/12/22 Range/Units 21:21 21:49 22:32 RBC (3.80-5.40) m/uL Hgb (11.4-16.0) gm/dL Hct (34.0-46.0) % MCHC (31.0-37.0) g/dL RDW (11.5-15.5) % Plt Count (150-450) k/uL Lymphocytes # (1.0-4.8) k/uL D-Dimer (<0.60) mg/L FEU ABG pH 7.49 H (7.35-7.45) ABG pCO2 29 L (35-45) mmHg ABG O2 Saturation 98.9 H (94-97) % Chloride (98-107) mmol/L BUN (7-17) mg/dL Creatinine (0.52-1.04) mg/dL Glucose (74-99) mg/dL POC Glucose (mg/dL) (70-110) mg/dL Calcium (8.4-10.2) mg/dL Total Bilirubin (0.2-1.3) mg/dL Total Protein (6.3-8.2) g/dL Albumin (3.5-5.0) g/dL Procalcitonin 0.12 H (0.02-0.09) ng/mL Urine Appearance Turbid H (Clear) Urine Protein 1+ H (Negative) Urine Ketones Trace H (Negative) Urine Blood Large H (Negative) Ur Leukocyte Esterase Large H (Negative) Urine RBC >182 H (0-5) /hpf Urine WBC >182 H (0-5) /hpf Urine Bacteria Many H (None) /hpf Urine Mucus Few H (None) /hpf 06/13/22 Range/Units 03:16 RBC (3.80-5.40) m/uL Hgb (11.4-16.0) gm/dL Hct (34.0-46.0) % MCHC (31.0-37.0) g/dL RDW (11.5-15.5) % Plt Count (150-450) k/uL Lymphocytes # (1.0-4.8) k/uL D-Dimer 2.81 H (<0.60) mg/L FEU ABG pH (7.35-7.45) ABG pCO2 (35-45) mmHg ABG O2 Saturation (94-97) % Chloride (98-107) mmol/L BUN (7-17) mg/dL Creatinine (0.52-1.04) mg/dL Glucose (74-99) mg/dL POC Glucose (mg/dL) (70-110) mg/dL Calcium (8.4-10.2) mg/dL Total Bilirubin (0.2-1.3) mg/dL Total Protein (6.3-8.2) g/dL Albumin (3.5-5.0) g/dL Procalcitonin (0.02-0.09) ng/mL Urine Appearance (Clear) Urine Protein (Negative) Urine Ketones (Negative) Urine Blood (Negative) Ur Leukocyte Esterase (Negative) Urine RBC (0-5) /hpf Urine WBC (0-5) /hpf Urine Bacteria (None) /hpf Urine Mucus (None) /hpf Microbiology - Last 24 Hours (Table) 06/12/22 22:32 Urine Culture - Preliminary Urine,Voided
[2022-06-13] MEDS: bisacodyL 10 MG SUPP RECTAL SCH (14:38)
[2022-06-13] MEDS ORDERED: levETIRAcetam IV 1,000 MG in SALINE 1 100ML.BAG IVPB STA (18:19)
[2022-06-13] MEDS ORDERED: LORazepam 2 MG/ML INJ IV STA (20:42)
--- NOTE | 2022-06-13 20:58 | EEG ---
ELECTROENCEPHALOGRAM REPORT PREAMBLE: This is a 77-year-old female with a seizure-like activity. The patient has significant altered mental status. EEG FINDINGS: This is a 21-channel digital EEG recorded with video component, utilizing 10/20 international system with referential and bipolar montages. Background consists of moderately developed, poorly regulated, predominantly mixed delta as theta slowing seen in bihemispheric region. Infrequent high-amplitude sharp appearing waves were seen, which were at times left parietal, sometimes right, sometimes bisynchronous. Some triphasic type waves were also seen. At times, transient suppression of the background was also seen. Different stages of sleep were not seen. Photic driving response was not seen. No electrographic seizure was recorded. IMPRESSION: This is an abnormal EEG due to: 1. Background slowing of arwlythc-wa-[id number] degree, suggestive of generalized cerebral dysfunction as can be seen with toxic metabolic encephalopathy or due to diffuse structural brain abnormality. Clinical correlation is recommended. 2. Presence of infrequent sharp waves seen in the left or right parietal region, sometimes bisynchronous suggestive of underlying cortical irritability and tendency for seizures. At times, these appears more triphasic type, which can be seen with metabolic encephalopathy. Clinical correlation and a followup EEG strongly recommended. MMODL / IJN: [id number] / [facility]
[2022-06-13] MEDS: levETIRAcetam IV 500 MG in SODIUM CHLORIDE 0.9% 100 ML IVPB SCH (21:20)
[2022-06-14] MEDS: FERROUS SULFATE 325 MG TAB PO SCH ×2 (00:38→21:41)
[2022-06-14] MEDS: MULTIVITAMINS, THERA 1 EACH TAB PO SCH ×2 (00:39→21:41)
[2022-06-14] MEDS ORDERED: LEVOTHYROXINE 137 MCG TAB PO SCH (06:30)
[2022-06-14] MEDS: PANTOPRAZOLE 40 MG TABLET PO SCH (07:57)
[2022-06-14] MEDS: CALCIUM CARB-VIT D 500 MG-5 MCG TAB PO SCH (07:57)
[2022-06-14 08:49] LABS: Basophils # (A) 0.01 X 10*3/uL (0.00-0.10); Basophils % (A) 0.2 %; Eosinophils # (A) 0.15 X 10*3/uL (0.04-0.35); Eosinophils % (A) 3.2 %; HCT 23.8 % (37.2-46.3); Immature Grans, Automated 0.4 %; Lymphocytes # (A) 1.04 X 10*3/uL (0.90-5.00); Lymphocytes % (A) 22.4 %; MCH 28.8 pg (27.0-32.0); MCHC 29.4 g/dL (32.0-37.0); MCV 97.9 fL (80.0-97.0); Mean Platelet Volume 10.2 fL (9.5-12.2); Monocytes # (A) 1.08 X 10*3/uL (0.20-1.00); Monocytes % (A) 23.3 %; NRBC Per 100 WBC 0 /100 WBCS (0.0-0.0); Neutrophils # (A) 2.34 X 10*3/uL (1.80-7.70); Neutrophils % (A) 50.5 %; Platelet Count 117 X 10*3/uL (140-440); RBC 2.43 X 10*6/uL (4.10-5.20); RDW 18.9 % (11.5-14.5); WBC 4.64 X 10*3/uL (4.50-10.00)
[2022-06-14 08:59] LABS: African American GFR (CKD) 38.3 (60.0-200.0); Anion Gap 11.8 mmol/L (10.00-18.00); BUN/Creat Ratio 29.33 Ratio (12.00-20.00); Calcium 8.1 mg/dL (8.7-10.3); Carbon Dioxide 22.2 mmol/L (20.0-27.5); Magnesium 2.4 mg/dL (1.5-2.4); Potassium 3.8 mmol/L (3.5-5.5)
[2022-06-14] MEDS: levETIRAcetam IV 500 MG in SODIUM CHLORIDE 0.9% 100 ML IVPB SCH (11:26)
[2022-06-14] MEDS: HEPARIN SODIUM,PORCINE/PF 5,000 UNIT/0.5 ML SYRINGE SQ SCH ×2 (11:27→21:41)
[2022-06-14] MEDS: FUROSEMIDE 10 MG/ML 4 ML VIAL IV SCH ×2 (11:27→21:41)
[2022-06-14] MEDS: bisacodyL 10 MG SUPP RECTAL SCH (11:28)
--- NOTE | 2022-06-14 11:39 | CA ---
Transthoracic Echo Report Name: Ely Castro Age: 77 Gender: F : 1945 Exam Date: 06/13/2022 09:57 Exam Location: [facility] Ht (in): 63 Wt (lb): 240 Ordering Physician: Royal Lei MD Attending/Referring Phys: [id number], [employer] Leigh Rawls RDCS Procedure CPT: Indications: chf Cardiac Hx: Technical Quality: Fair Contrast 1: Total Dose (mL): Contrast 2: Total Dose (mL): MEASUREMENTS (Male / Female) Normal Values 2D ECHO LV Diastolic Diameter PLAX 5.5 cm 4.2 - 5.9 / 3.9 - 5.3 cm LV Systolic Diameter PLAX 3.9 cm IVS Diastolic Thickness 1.1 cm 0.6 - 1.0 / 0.6 - 0.9 cm LVPW Diastolic Thickness 1.2 cm 0.6 - 1.0 / 0.6 - 0.9 cm LV Relative Wall Thickness 0.4 LA Volume 46.8 cm??? 18 - 58 / 22 - 52 cm??? Ascending Aorta Diameter 3.2 cm Aorta at Sinuses Diameter 2.8 cm M-MODE Aortic Root Diameter MM 2.3 cm AV Cusp Separation MM 1.3 cm DOPPLER AV Peak Velocity 192.6 cm/s AV Peak Gradient 14.8 mmHg LVOT Peak Velocity 108.6 cm/s LVOT Peak Gradient 4.7 mmHg MV Peak Velocity 135.0 cm/s MV Peak Gradient 7.3 mmHg MV Mean Velocity 115.0 cm/s MV Mean Gradient 5.4 mmHg MV Velocity Time Integral 29.9 cm MV Area PHT 5.2 cm??? MR Peak Velocity 505.3 cm/s MR Peak Gradient 102.2 mmHg Mitral E Point Velocity 125.6 cm/s Mitral A Point Velocity 97.0 cm/s Mitral E to A Ratio 1.3 MV Deceleration Time 117.7 ms TR Peak Velocity 271.6 cm/s TR Peak Gradient 29.5 mmHg Right Atrial Pressure 8.0 mmHg Pulmonary Artery Systolic Pressu 37.5 mmHg Right Ventricular Systolic Press 37.5 mmHg PV Peak Velocity 93.7 cm/s PV Peak Gradient 3.5 mmHg FINDINGS Left Ventricle Mildly increased septal wall thickness. Mildly increased posterior wall thickness. Mildly increased left ventricular diastolic diameter. Left ventricular ejection fraction is estimated at 55-60%. Right Ventricle Mild right ventricular dilatation. Normal right ventricular global systolic function. Mild pulmonary hypertension. Right Atrium Right atrial dilatation. Positive agitated saline bubble study for right to left shunt. Left Atrium Normal left atrial size. Mild left atrial dilatation. Mitral Valve Moderate mitral regurgitation. Aortic Valve Trileaflet aortic valve. Trace aortic regurgitation. Tricuspid Valve [id number] tricuspid regurgitation. Pulmonic Valve No pulmonic regurgitation. Pericardium Minimal pericardial effusion (normal variant). Aorta Normal size aortic root and proximal ascending aorta. Normal abdominal aorta. CONCLUSIONS Normal LV systolic function. Left ventricular hypertrophy Mildly dilated right ventricle with a normal function Moderate mitral regurgitation Cannot exclude patent foramen ovale. Bubble study was performed and seems to be positive Previewed by: Dr. Tomas Carrlilo MD (Electronically Signed) Final Date: 14 June 2022 11:38
--- NOTE | 2022-06-14 12:42 | P.PN ---
Subjective Progress Note Date: 06/14/22 Hospital Course: 77-year-old female, group home resident with a history of MS, hypothyroidism, atrial fibrillation presenting with acute encephalopathy. Per sister, patient is alert and oriented at baseline. She is at group home due to reduced functional mobility, is currently bedbound. However, she has not had any issues with her mental status. Occasionally she gets urinary tract infection which affects her mentation, but not to this degree. Since presented to the ED, diya ent vital signs were within normal limits. Lab work showed hemoglobin of 7.4, platelet 133, pH 7.49, pCO2 29, creatinine 1.51, BUN 47, TSH 2.89, pro calcitonin 0.12, prolactin 24.1, urinalysis showed large leukocyte esterase, negative nitrites. D-dimer was elevated at 2.81. CT head showed no acute process. CT abdomen and pelvis showed constipation, splenomegaly, large right- sided staghorn renal calculus, mild right pleural effusion. EEG showed frequent sharp waves which may be suggestive of underlying cortical irritability and tendency for seizures, but it may also be related to toxic metabolic encephalopathy. Subjective: Patient seen and examined at bedside. No acute events overnight. Patient denies any chest pain, shortness of breath, abdominal pain, nausea, vomiting, diarrhea, constipation, or urinary complaints. Pertinent positives and negatives as discussed above, a complete review of systems was performed and all other systems are negative. Vitals Signs Reviewed. General: No distress, morbidly obese Derm: warm, dry Head: atraumatic, normocephalic, symmetric Eyes: Pupils equal and reactive, no scleral icterus Mouth: no lip lesion, mucus membranes moist Cardiovascular: S1S2 reg, no murmur Lungs: CTA bilateral, no rhonchi, no rales , no accessory muscle use Abdominal: soft, nontender to palpation, no guarding, no appreciable organomegaly Ext: no gross muscle atrophy, bilateral lower extremity edema Neuro: No focal deficits, CN II through XII grossly normal Psych: Awake, alert, oriented 2, cooperative Data Reviewed Today: Pertinent Labs: Hemoglobin 7.0, platelet 117, sodium 147, creatinine 1.5, magnesium 2.4 EEG report reviewed: Has some sharp waves, which may be suggestive of underlying cortical irritability and tendency for seizures, but it may also be related to toxic metabolic encephalopathy. Assessment and Plan: Active: Acute toxic metabolic encephalopathy Possible subclinical seizures Urinary tract infection History of kidney stones History of MS Right pleural effusion History of CHF Normocytic anemia and thrombocytopenia Likely chronic kidney disease stage III Hyperbilirubinemia Constipation History of Hypothyroidism -Mental status has improved -Patient currently on IV Keppra 500 mg twice a day, neurology following, prolonged EEG pending -Continue ceftriaxone 2 g IV every 24 hours -Urine culture growing gram-negative bacilli -Blood cultures pending -Patient currently on IV diuretics 40 mg Lasix twice a day -Echocardiogram normal LV systolic function, LV hypertrophy, moderate MR, positive bowel study -Hemoglobin continues to downturn, no active bleeding -Unsure why patient is on aspirin and Plavix -Per sister, patient had a watchman procedure recently -Holding aspirin and Plavix in case we need an LP -Renal function remains stable -Hyperbilirubinemia likely the setting of acute infection -Patient is still having bowel movements -Restarted home oral dose of levothyroxine DVT ppx: Subcu heparin Code status: Full code Anticipated discharge place: Pending clinical course Anticipated discharge time: Pending clinical course Objective - Vital Signs Vital signs: Vital Signs Temp 98.8 F 06/14/22 09:53 Pulse 87 06/14/22 11:30 Resp 16 06/14/22 09:53 BP 108/61 06/14/22 11:30 Pulse Ox 99 06/14/22 09:53 FiO2 Intake & Output 06/13/22 06/14/22 06/14/22 18:59 06:59 18:59 Output Total 1000 1850 Balance -1000 -1850 Weight 108.862 kg Output: Urine 1000 1850 Other: Voiding Method External Catheter External Catheter External Catheter # Bowel Movements 1 - Labs CBC & Chem 7: 06/14/22 05:36 06/14/22 05:36 Labs: Abnormal Lab Results - Last 24 Hours (Table) 06/13/22 06/14/22 06/14/22 Range/Units 18:44 05:36 05:36 RBC 2.43 L (4.10-5.20) X 10*6/uL Hgb 7.0 L (12.0-15.0) g/dL Hct 23.8 L (37.2-46.3) % MCV 97.9 H (80.0-97.0) fL MCHC 29.4 L (32.0-37.0) g/dL RDW 18.9 H (11.5-14.5) % Plt Count 117 L (140-440) X 10*3/uL Monocytes # 1.08 H (0.20-1.00) X 10*3/uL Sodium 147 H (135-145) mmol/L Chloride 113 H (96-109) mmol/L BUN 44.0 H (9.0-27.0) mg/dL Est GFR (CKD-EPI)AfAm 38.3 L (60.0-200.0) Est GFR (CKD-EPI)NonAf 33.0 L (60.0-200.0) BUN/Creatinine Ratio 29.33 H (12.00-20.00) Ratio Calcium 8.1 L (8.7-10.3) mg/dL Ammonia 69 H (<30) umol/L Microbiology - Last 24 Hours (Table) 06/12/22 22:32 Urine Culture - Preliminary Urine,Voided Gram Neg Bacilli
[2022-06-14] MEDS: levETIRAcetam 500 MG TAB PO SCH (21:41)
[2022-06-14] MEDS: MELATONIN 3 MG TABLET PO PRN (21:45)
--- NOTE | 2022-06-15 03:01 | EEG ---
ELECTROENCEPHALOGRAM REPORT ELECTROENCEPHALOGRAM (EEG) REPORT: TECHNIQUE: This is a report from a prolonged 2.5-hour inpatient digital EEG performed using the 10/20 international electrode placement system. HISTORY: Atrial fibrillation, gastroesophageal reflux, hypertension, thyroid disorder, multiple sclerosis. CURRENT MEDICATIONS: 1. Dulcolax. 2. Ceftriaxone. 3. Iron. 4. Lasix. 5. Keppra. 6. Melatonin. FINDINGS: Recording start time: 06/14/2022 at 07:09 a.m. Recording end time: 06/14/2022 at 09:41 a.m. EVENTS: During this 2.5-hour outpatient video EEG, no clinical or electrographic seizures were recorded. BACKGROUND: BACKGROUND: Background frequencies were seen in the unsustained 6 to 7 hertz range with intermixed slower delta range frequencies. Please see section on abnormalities below. ACTIVATION: Hyperventilation: Not performed. Photic stimulation: Not performed. Sleep: Drowsy. ABNORMALITIES: 1. Frequent [id number] voltage triphasic waves were seen. 2. Occasional frontally predominant delta range slowing was seen. 3. Diffuse 4 to 6 hertz theta range slowing was seen. IMPRESSION: Abnormal EEG. No seizures were recorded. No epileptiform activity was present. The triphasic waves mentioned above are not epileptiform in nature. Triphasic waves can be seen in the setting of a metabolic encephalopathy. The frontally predominant delta range slowing as well as the diffuse theta delta range slowing mentioned above is not epileptiform in nature. In combination, these findings indicate moderate diffuse cerebral dysfunction as may be seen in a toxo metabolic encephalopathy. These findings were called to the consulting neurologist at 4:15 p.m. on 06/14/2022. MMODL / IJN: [id number] /
[2022-06-15] MEDS ORDERED: ONDANSETRON 4 MG/2 ML VIAL IVP PRN (08:43)
[2022-06-15] MEDS: bisacodyL 10 MG SUPP RECTAL SCH (09:42)
[2022-06-15] MEDS: LEVOTHYROXINE 137 MCG TAB PO SCH (09:43)
[2022-06-15] MEDS: CALCIUM CARB-VIT D 500 MG-5 MCG TAB PO SCH (09:43)
[2022-06-15] MEDS: FUROSEMIDE 10 MG/ML 4 ML VIAL IV SCH (09:43)
[2022-06-15] MEDS: levETIRAcetam 500 MG TAB PO SCH ×2 (09:43→20:56)
[2022-06-15] MEDS: PANTOPRAZOLE 40 MG TABLET PO SCH (09:43)
[2022-06-15] MEDS: HEPARIN SODIUM,PORCINE/PF 5,000 UNIT/0.5 ML SYRINGE SQ SCH ×2 (09:43→20:57)
--- NOTE | 2022-06-15 11:13 | P.PN ---
Subjective Progress Note Date: 06/15/22 Hospital Course: 77-year-old female, [facility] resident with a history of MS, hypothyroidism, atrial fibrillation presenting with acute encephalopathy. Per sister, patient is alert and oriented at baseline. She is at [facility] due to reduced functional mobility, is currently bedbound. However, she has not had any issues with her mental status. Occasionally she gets urinary tract infection which affects her mentation, but not to this degree. Since presented to the ED, patient vital signs were within normal limits. Lab work showed hemoglobin of 7.4, platelet 133, pH 7.49, pCO2 29, creatinine 1.51, BUN 47, TSH 2.89, pro calcitonin 0.12, prolactin 24.1, urinalysis showed large leukocyte esterase, negative nitrites. D-dimer was elevated at 2.81. CT head showed no acute process. CT abdomen and pelvis showed constipation, splenomegaly, large right- sided staghorn renal calculus, mild right pleural effusion. EEG showed frequent sharp waves which may be suggestive of underlying cortical irritability and tendency for seizures, but it may also be related to toxic metabolic en cephalopathy. Prolonged EEG did not show any epileptiform discharges. Subjective: Patient seen and examined at bedside. No acute events overnight. Patient denies any chest pain, shortness of breath, abdominal pain, nausea, vomiting, diarrhea, constipation, or urinary complaints. Pertinent positives and negatives as discussed above, a complete review of systems was performed and all other systems are negative. Vitals Signs Reviewed. General: No distress, morbidly obese Derm: warm, dry Head: atraumatic, normocephalic, symmetric Eyes: Pupils equal and reactive, no scleral icterus Mouth: no lip lesion, mucus membranes moist Cardiovascular: S1S2 reg, no murmur Lungs: CTA bilateral, no rhonchi, no rales , no accessory muscle use Abdominal: soft, nontender to palpation, no guarding, no appreciable organomegaly Ext: no gross muscle atrophy, bilateral lower extremity edema Neuro: No focal deficits, CN II through XII grossly normal Psych: Awake, alert, oriented 3, cooperative Data Reviewed Today: Pertinent Labs: CBC, BMP, magnesium pending, will be reviewed from resulted Prolonged EEG report reviewed: No epileptiform discharges, consistent with Assessment and Plan: Active: Acute toxic metabolic encephalopathy Possible subclinical seizures Urinary tract infection History of kidney stones History of MS Right pleural effusion History of CHF Normocytic anemia and thrombocytopenia Likely chronic kidney disease stage III Hyperbilirubinemia Constipation History of Hypothyroidism -Mental status has improved remarkably, likely at her baseline -Neurology following, on oral Keppra 500 mg twice a day -Continue ceftriaxone 2 g IV every 24 hours -Urine culture growing gram-negative bacilli -Blood cultures no growth to date -IV Lasix changed to oral Lasix 40 twice a day -Echocardiogram normal LV systolic function, LV hypertrophy, moderate MR, positive bubble study -No active bleeding, CBC pending from today -Unclear why patient is on aspirin and Plavix -Per sister, patient may have had a watchman procedure recently -Holding aspirin and Plavix in case we need an LP -Renal function remains stable, BMP pending from today -Hyperbilirubinemia likely the setting of acute infection -1 bowel movement yesterday -On home oral dose of levothyroxine DVT ppx: Subcu heparin Code status: Full code Anticipated discharge place: Back to [facility] Anticipated discharge time: Likely Friday Objective - Vital Signs Vital signs: Vital Signs Temp 97.7 F 06/15/22 07:10 Pulse 85 06/15/22 07:10 Resp 16 06/15/22 07:10 BP 104/63 06/15/22 07:10 Pulse Ox 97 06/15/22 09:00 FiO2 Intake & Output 06/14/22 06/15/22 06/15/22 18:59 06:59 18:59 Output Total 700 1900 200 Balance -700 -1900 -200 Output: Urine 700 1900 Emesis 200 Other: Voiding Method External Catheter Bedpan Diaper Incontinent External Catheter - Labs CBC & Chem 7: 06/14/22 05:36 06/14/22 05:36 Labs: Microbiology - Last 24 Hours (Table) 06/13/22 15:16 Blood Culture - Preliminary Blood No Growth after 24 hours 06/13/22 14:44 Blood Culture - Preliminary Blood No Growth after 24 hours 06/12/22 22:32 Urine Culture - Preliminary Urine,Voided Gram Neg Bacilli
[2022-06-15 11:23] LABS: African American GFR (CKD) 50.1 (60.0-200.0); Anion Gap 11.7 mmol/L (10.00-18.00); BUN/Creat Ratio 26.83 Ratio (12.00-20.00); Blood Urea Nitrogen 32.2 mg/dL (9.0-27.0); Calcium 7.5 mg/dL (8.7-10.3); Carbon Dioxide 21.3 mmol/L (20.0-27.5); Magnesium 2.2 mg/dL (1.5-2.4); Non-African American GFR(CKD) 43.3 (60.0-200.0); Potassium 3.2 mmol/L (3.5-5.5)
--- NOTE | 2022-06-15 13:13 | P.PN ---
Subjective Progress Note Date: 06/14/22 Patient was seen for a follow-up. Patient has much improved. Patient is better oriented. Patient tells me that she does have history of MS. She is upset about nursing staff at [facility] except for one nurse that she is happy with. Offers no complaints. She does appear slightly short of breath. Objective - Vital Signs Vital signs: Vital Signs Temp 98.0 F 06/14/22 14:00 Pulse 87 06/14/22 14:00 Resp 17 06/14/22 14:00 BP 121/70 06/14/22 14:00 Pulse Ox 100 06/14/22 14:00 FiO2 Intake & Output 06/13/22 06/14/22 06/14/22 18:59 06:59 18:59 Output Total 1000 1850 Balance -1000 -1850 Weight 108.862 kg Output: Urine 1000 1850 Other: Voiding Method External Catheter External Catheter External Catheter # Bowel Movements 1 - Exam Patient is alert and awake, slightly groggy. Slightly short of breath. Speech and language functions are normal. Patient states it's April and the year is . She knows that she is in [facility] but thinks it is [place]. She is hard of hearing. Her cranial nerves are normal. Muscle strength is normal in the upper limbs. In the lower limbs ankle dorsiflexion is 3 on the right 2 on the left. Patient has bilateral Babinski. - Labs CBC & Chem 7: 06/14/22 05:36 06/15/22 06:17 Labs: Abnormal Lab Results - Last 24 Hours (Table) 06/13/22 06/14/22 06/14/22 Range/Units 18:44 05:36 05:36 RBC 2.43 L (4.10-5.20) X 10*6/uL Hgb 7.0 L (12.0-15.0) g/dL Hct 23.8 L (37.2-46.3) % MCV 97.9 H (80.0-97.0) fL MCHC 29.4 L (32.0-37.0) g/dL RDW 18.9 H (11.5-14.5) % Plt Count 117 L (140-440) X 10*3/uL Monocytes # 1.08 H (0.20-1.00) X 10*3/uL Sodium 147 H (135-145) mmol/L Chloride 113 H (96-109) mmol/L BUN 44.0 H (9.0-27.0) mg/dL Est GFR (CKD-EPI)AfAm 38.3 L (60.0-200.0) Est GFR (CKD-EPI)NonAf 33.0 L (60.0-200.0) BUN/Creatinine Ratio 29.33 H (12.00-20.00) Ratio Calcium 8.1 L (8.7-10.3) mg/dL Ammonia 69 H (<30) umol/L Microbiology - Last 24 Hours (Table) 06/12/22 22:32 Urine Culture - Preliminary Urine,Voided Gram Neg Bacilli Assessment and Plan Assessment: * Altered mental status, likely due to toxic metabolic encephalopathy. Patient has an acute UTI. * Abnormal EEG with evidence of epileptiform activity and triphasic activity suggestive of metabolic encephalopathy * History of multiple sclerosis, in remission. Patient is paraplegic, nonambulatory. * Atrial fibrillation, status post placement of watchman device on 05/28/2022. * Staghorn calculus * Obesity * History of back surgery Plan: * Patient's mentation has much improved. Her rigidity has resolved. She is almost fully oriented. Examination shows no obvious focality. Continues to be paraparetic, which is chronic from her history of MS. * CT head showed no acute process. * Routine EEG performed 06/13/2022 was abnormal with background slowing of moderate to severe degree, suggestive of generalized cerebral dysfunction as can be seen with toxic metabolic encephalopathy. Presence of frequent sharp waves seen in the left or right parietal region, sometimes bisynchronous suggestive of underlying cortical irritability and tendency for seizures. At times these appears more triphasic type, which can be seen with metabolic encephalopathy. Clinical correlation and a follow-up EEG strongly recommended. * Prolonged 2.5 hour EEG today 06/14/2022 was abnormal EEG. No seizures were recorded. No epileptiform activity was present. The triphasic waves mentioned above are not epileptiform in nature. Triphasic waves can be seen in the setting of a metabolic encephalopathy. The frontally predominant delta range slowing as well as diffuse theta delta range slowing is not epileptiform in nature. In combination, these findings indicate moderate diffuse cerebral dysfunction as may be seen in her toxic metabolic encephalopathy. * Patient received loading dose of Keppra 1000 mg yesterday, and now on 500 mg twice a day. Her mentation has much improved. The rigidity has resolved. * 2D-ECHO revealed normal left ventricular systolic function. Left ventricle hypertrophy. Mildly dilated right ventricle. Moderate MR. Cannot exclude PFO. Bubble study was performed and seems to be positive. Suggest cardiology consultation. * B12 660, folate 8.10, CK 32 all normal. Prolactin 24.10. * Patient has acute UTI. Patient started on Rocephin 2 g every 24 hours.
[2022-06-15 13:17] LABS: Basophils # (A) 0.01 X 10*3/uL (0.00-0.10); Basophils % (A) 0.2 %; Eosinophils # (A) 0.24 X 10*3/uL (0.04-0.35); Eosinophils % (A) 4.9 %; HCT 22.8 % (37.2-46.3); HGB 6.5 g/dL (12.0-15.0); Immature Grans, Automated 0.2 %; Lymphocytes # (A) 1.19 X 10*3/uL (0.90-5.00); Lymphocytes % (A) 24.5 %; MCH 28.3 pg (27.0-32.0); MCHC 28.5 g/dL (32.0-37.0); MCV 99.1 fL (80.0-97.0); Mean Platelet Volume 10.2 fL (9.5-12.2); Monocytes # (A) 0.94 X 10*3/uL (0.20-1.00); Monocytes % (A) 19.4 %; NRBC Per 100 WBC 0 /100 WBCS (0.0-0.0); Neutrophils # (A) 2.46 X 10*3/uL (1.80-7.70); Neutrophils % (A) 50.8 %; Platelet Count 104 X 10*3/uL (140-440); RDW 17.9 % (11.5-14.5); WBC 4.85 X 10*3/uL (4.50-10.00)
[2022-06-15] MEDS ORDERED: POTASSIUM BICARBONATE/CIT AC 20 MEQ TABLET.EFF PO ONE (15:00)
[2022-06-15] MEDS: FUROSEMIDE 40 MG TAB PO SCH (17:12)
[2022-06-15] MEDS: MELATONIN 3 MG TABLET PO PRN (20:56)
[2022-06-15] MEDS: FERROUS SULFATE 325 MG TAB PO SCH (20:56)
[2022-06-15] MEDS: MULTIVITAMINS, THERA 1 EACH TAB PO SCH (20:56)
[2022-06-16] MEDS: bisacodyL 10 MG SUPP RECTAL SCH (07:32)
[2022-06-16 08:23] LABS: Anisocytosis Slight; Basophils % (A) 0 %; Eosinophils # (A) 0.2 k/uL (0-0.7); Eosinophils % (A) 4 %; HCT 25.8 % (34.0-46.0); HGB 8.1 gm/dL (11.4-16.0); Hypochromasia Marked; Lymphocytes # (A) 0.8 k/uL (1.0-4.8); Lymphocytes % (A) 22 %; MCH 29.4 pg (25.0-35.0); MCHC 31.5 g/dL (31.0-37.0); MCV 93.5 fL (80.0-100.0); Mean Platelet Volume 7.8; Monocytes # (A) 0.5 k/uL (0-1.0); Monocytes % (A) 14 %; Neutrophils # (A) 2.1 k/uL (1.3-7.7); Neutrophils % (A) 56 %; Poikilocytosis Slight; RBC 2.76 m/uL (3.80-5.40); RDW 16.2 % (11.5-15.5); WBC 3.8 k/uL (3.8-10.6)
[2022-06-16 08:49] LABS: African American GFR (CKD) 66 (>60 ml/min/1.73 sqM); Anion Gap 7 mmol/L; Blood Urea Nitrogen 23 mg/dL (7-17); Carbon Dioxide 23 mmol/L (22-30); Chloride 107 mmol/L (98-107); Glucose 102 mg/dL (74-99); Non-African American GFR(CKD) 57 (>60 ml/min/1.73 sqM); Potassium 3.2 mmol/L (3.5-5.1); Sodium 137 mmol/L (137-145)
[2022-06-16 08:52] LABS: Platelet Count 107 k/uL (150-450)
[2022-06-16] MEDS: HEPARIN SODIUM,PORCINE/PF 5,000 UNIT/0.5 ML SYRINGE SQ SCH ×2 (09:30→20:30)
[2022-06-16] MEDS: FUROSEMIDE 40 MG TAB PO SCH ×2 (09:30→18:21)
[2022-06-16] MEDS: LEVOTHYROXINE 137 MCG TAB PO SCH (09:31)
[2022-06-16] MEDS: CALCIUM CARB-VIT D 500 MG-5 MCG TAB PO SCH (09:31)
[2022-06-16] MEDS: PANTOPRAZOLE 40 MG TABLET PO SCH (09:31)
[2022-06-16] MEDS: levETIRAcetam 500 MG TAB PO SCH ×2 (09:31→20:30)
--- NOTE | 2022-06-16 09:34 | P.CRDCN ---
History of Present Illness Consult date: 06/16/22 Chief complaint: Change in mental status History of present illness: The patient is a pleasant 77-year-old female patient with a past medical history significant for paroxysmal atrial fibrillation as well as history of multiple sclerosis and chronic anemia as well as hypertension and dyslipidemia was transferred from extended care facility to the hospital for further evaluation of change in mental status. The patient does have extremely poor functional capacity and she is almost wheelchair-bound. She does have history of gastrointestinal bleeding and for that reason she underwent placement of the watchman device. Currently she is not on any oral anticoagulation but she is on antiplatelet with Plavix. She is somewhat poor historian. She does follow with a slab tripper out of [facility]. We consulted to see the patient b ecause she was admitted with change in mental status and she was seen by the neurology service. Subsequently an echocardiogram was performed and revealed normal biventricular systolic function was evidence off possible patent foramen ovale was seen on the contrast study. Clinically and from a cardiac standpoint of view, she remains a stable. She reports no pain in the chest and no shortness of breath. She reports no dizziness or lightheadedness or any feeling of heart racing or fluttering. She was admitted mainly because of change in mental status but the workup does not seems to be consistent with TIA/CVA. The patent foramen ovale could be related to the procedure when she underwent the watchman device placement. She underwent a workup during the hospital admission including EKG showing sinus rhythm with no evidence of any ischemic ST or T-wave abnormalities. Please note that the patient is anemic and hemoglobin appears to be borderline low. The examination is remarkable for stable vital signs with regular rhythm and systolic murmur at the right upper sternal border with di minished breathing sounds bilaterally and she has bilateral lower extremities edema and bilateral lower except his chronic skin changes Assessment Change in mental status which has somewhat improved Patent foramen ovale on an echocardiogram was performed recently Paroxysmal atrial fibrillation status post placement of the watchman device History of gastrointestinal bleeding History of multiple sclerosis Chronic anemia Multiple comorbid conditions Plan Consider medical treatment for the patent foramen ovale giving that her clinical scenario consistent with encephalopathy more than acute stroke and also there is no history of DVT with paradoxical embolization and also keeping in mind that th e patient was on single antiplatelet with Plavix and she developed anemia required blood transfusion. For the above I would consider conservative medical approach regarding the PFO and not pursuing with PFO closure. We will follow-up with the neurology evaluation as well. Meanwhile continue monitor the hemoglobin. She already received one unit of packed RBC. Awaiting the hemoglobin to be done in the morning. Further recommendation to follow Past Medical History Past Medical History: Atrial Fibrillation, GERD/Reflux, Hypertension, Thyroid Disorder Additional Past Medical History / Comment(s): MS History of Any Multi-Drug Resistant Organisms: MRSA Date of last positivie culture/infection: 2009 MDRO Source:: left knee Past Surgical History: Unable to Obtain, Joint Replacement Past Psychological History: Depression Past Alcohol Use History: None Reported Past Drug Use History: None Reported Medications and Allergies Home Medications Medication Instructions Recorded Confirmed Type Aspirin 81 mg PO DAILY 06/12/22 06/12/22 History Calcium Carbonate/Vitamin D3 1 tab PO DAILY 06/12/22 06/12/22 History [Calcium 600 mg-Vit D3 5 mcg (200 unit)] Clopidogrel [Plavix] 75 mg PO DAILY 06/12/22 06/12/22 History Cranberry Fruit [Cranberry] 465 mg PO BID 06/12/22 06/12/22 History Cyclobenzaprine [Flexeril] 10 mg PO Q8H PRN 06/12/22 06/12/22 History Dextran/Hypromellose/Glycerin 2 drops BOTH EYES BID 06/12/22 06/12/22 History [Genteal Tears 0.1%-0.2%-0.3%] Doxycycline Monohydrate 100 mg PO BID 06/12/22 06/12/22 History Ferrous Sulfate [Feosol] 325 mg PO HS 06/12/22 06/12/22 History Furosemide [Lasix] 40 mg PO BID 06/12/22 06/12/22 History Lactobacillus Acidophilus 1 cap PO DAILY 06/12/22 06/12/22 History [Acidophilus] Levothyroxine Sodium [Synthroid] 137 mcg PO DAILY 06/12/22 06/12/22 History Lidocaine/Menthol [Icy Hot 4%-1% 1 patch TOPICAL DAILY PRN 06/12/22 06/12/22 History Patch] Loratadine [Claritin] 10 mg PO DAILY 06/12/22 06/12/22 History Magnesium Chloride- Calcium 1 tab PO DAILY 06/12/22 06/12/22 History 64-106mg Melatonin 3 mg PO HS PRN 06/12/22 06/12/22 History Mirabegron [Myrbetriq] 50 mg PO DAILY 06/12/22 06/12/22 History Multivitamins, Thera [Multivitamin 1 tab PO HS 06/12/22 06/12/22 History (formulary)] Pantoprazole [Protonix] 40 mg PO DAILY 06/12/22 06/12/22 History Potassium Chloride ER [K-Dur 20] 40 meq PO BID-W/MEALS 06/12/22 06/12/22 History Promethazine HCl 12.5 mg PO Q6H PRN 06/12/22 06/12/22 History Spironolactone 25 mg PO DAILY 06/12/22 06/12/22 History bisacodyL [Dulcolax] 10 mg PO HS PRN 06/12/22 06/12/22 History traMADol HCL 50 mg PO Q12H PRN 06/12/22 06/12/22 History Allergies Allergy/AdvReac Type Severity Reaction Status Date / Time No Known Allergies Allergy Verified 06/12/22 20:12 Physical Exam Vitals: Vital Signs Temp Pulse Pulse Resp BP BP Pulse Ox 06/16/22 08:00 96 06/16/22 07:51 97.8 F 84 18 102/61 96 06/16/22 04:22 97.7 F 83 18 102/57 98 06/16/22 02:00 98.0 F 84 18 110/63 98 06/16/22 01:40 97.8 F 85 18 103/59 97 06/16/22 01:34 98.0 F 82 18 107/63 99 06/16/22 01:12 98.0 F 82 15 107/65 99 06/15/22 19:21 98.5 F 88 15 100/54 99 06/15/22 13:37 98.0 F 86 16 104/62 98 Intake and Output 06/15/22 06/16/22 06/16/22 22:59 06:59 14:59 Intake Total 310 Output Total 1850 1000 Balance -1849 -690 Intake: Blood Product 310 Rc As-1 Unit 310 [id number] Output: Urine 1850 1000 Other: Voiding Method External Catheter Results 06/16/22 08:02 06/16/22 08:02 CBC 06/15/22 06/16/22 Range/Units 06:17 08:02 WBC 4.85 3.8 (4.50-10.00) X 10*3/uL RBC 2.30 L 2.76 L (4.10-5.20) X 10*6/uL Hgb 6.5 L* 8.1 L (12.0-15.0) g/dL Hct 22.8 L 25.8 L (37.2-46.3) % Plt Count 104 L 107 L (140-440) X 10*3/uL Comprehensive Metabolic Panel 06/15/22 06/16/22 Range/Units 06:17 08:02 Sodium 140 137 (135-145) mmol/L Potassium 3.2 L 3.2 L (3.5-5.5) mmol/L Chloride 107 107 (96-109) mmol/L Carbon Dioxide 21.3 23 (20.0-27.5) mmol/L BUN 32.2 H 23 H (9.0-27.0) mg/dL Creatinine 1.2 0.96 (0.6-1.5) mg/dL Glucose 93 102 H (70-110) mg/dL Calcium 7.5 L 7.0 L (8.7-10.3) mg/dL Current Medications Generic Name Dose Route Start Last Admin Trade Name Carlosq PRN Reason Stop Dose Admin Acetaminophen 650 mg 06/12/22 22:51 Acetaminophen Tab 325 Mg Tab PO Q6HR PRN Mild Pain or Fever > 100.5 Bisacodyl 10 mg 06/13/22 14:09 Bisacodyl 5 Mg Tablet.Dr PO HS PRN Constipation Bisacodyl 10 mg 06/13/22 14:15 06/16/22 07:32 Bisacodyl 10 Mg Supp RECTAL Not Given DAILY [facility] Calcium Carbonate 1 each 06/14/22 09:00 06/15/22 09:43 Calcium Carb-Vit D 500 Mg-5 Mcg Tab PO 1 each DAILY LORI Administration Ferrous Sulfate 325 mg 06/13/22 21:00 06/15/22 20:56 Ferrous Sulfate 325 Mg Tab PO 325 mg HS LORI Administration Furosemide 40 mg 06/15/22 16:00 06/15/22 17:12 Furosemide 40 Mg Tab PO 40 mg BID@0900,1600 [facility] Administration Heparin Sodium (Porcine) 5,000 unit 06/13/22 09:00 06/15/22 20:57 Heparin Sodium,Porcine/Pf 5,000 Unit/0.5 Ml Syringe SQ 5,000 unit Q12HR LORI Administration Ceftriaxone Sodium 2 gm/ 50 mls @ 100 mls/hr 06/13/22 23:00 06/16/22 00:04 Sodium Chloride IVPB 100 mls/hr Q24H LORI Administration Protocol Levetiracetam 500 mg 06/14/22 21:00 06/15/22 20:56 Levetiracetam 500 Mg Tab PO 500 mg Q12HR LORI Administration Levothyroxine Sodium 137 mcg 06/15/22 06:30 06/15/22 09:43 Levothyroxine 137 Mcg Tab PO 137 mcg DAILY@0630 LORI Administration Melatonin 3 mg 06/13/22 14:09 06/15/22 20:56 Melatonin 3 Mg Tablet PO 3 mg HS PRN Administration Insomnia Multivitamins 1 each 06/13/22 21:00 06/15/22 20:56 Multivitamins, Thera 1 Each Tab PO 1 each HS LORI Administration Naloxone HCl 0.2 mg 06/12/22 22:51 Naloxone 0.4 Mg/Ml 1 Ml Vial IV Q2M PRN Opioid Reversal Ondansetron HCl 4 mg 06/15/22 08:43 06/15/22 08:55 Ondansetron 4 Mg/2 Ml Vial IVP 4 mg Q8HR PRN Administration Nausea And Vomiting Pantoprazole Sodium 40 mg 06/14/22 07:30 06/15/22 09:43 Pantoprazole 40 Mg Tablet PO 40 mg [id number] LORI Administration Intake and Output 06/15/22 06/16/22 06/16/22 22:59 06:59 14:59 Intake Total 310 Output Total 1850 1000 Balance -1850 -690 Intake: Blood Product 310 Rc As-1 Unit 310 [id number] Output: Urine 1850 1000 Other: Voiding Method External Catheter 06/16/22 08:02 06/16/22 08:02
--- NOTE | 2022-06-16 09:40 | P.PN ---
Subjective Progress Note Date: 06/15/22 Patient was seen for a follow-up. Patient has much improved. Patient states that she is not feeling "too good", as she recently threw up. She has no appetite. She denies headache. No new focal symptoms. No seizures. Patient is better oriented. Patient tells me that she does have history of MS. She is upset about nursing staff at [facility] except for one nurse that she is happy with. She does appear slightly short of breath. Objective - Vital Signs Vital signs: Vital Signs Temp 98.0 F 06/15/22 13:37 Pulse 86 06/15/22 13:37 Resp 16 06/15/22 13:37 BP 104/62 06/15/22 13:37 Pulse Ox 98 06/15/22 13:37 FiO2 Intake & Output 06/14/22 06/15/22 06/15/22 18:59 06:59 18:59 Output Total 700 1900 2050 Balance -700 -1900 -2050 Output: Urine 700 1900 1850 Emesis 200 Other: Voiding Method External Catheter Bedpan Bedpan Diaper Diaper Incontinent Incontinent External Catheter External Catheter - Exam Patient is alert and awake. Slightly short of breath. Speech and language functions are normal. Patient states it's May and the year is 2022. She states that she is in [facility]. She is hard of hearing. Her cranial nerves are normal. Muscle strength is normal in the upper limbs. In the lower limbs ankle dorsiflexion is 3 on the right 2 on the left. Patient has bilateral Babinski. - Labs CBC & Chem 7: 06/16/22 08:02 06/16/22 08:02 Labs: Abnormal Lab Results - Last 24 Hours (Table) 06/15/22 06/15/22 06/15/22 Range/Units 06:17 06:17 14:32 RBC 2.30 L (4.10-5.20) X 10*6/uL Hgb 6.5 L* (12.0-15.0) g/dL Hct 22.8 L (37.2-46.3) % MCV 99.1 H (80.0-97.0) fL MCHC 28.5 L (32.0-37.0) g/dL RDW 17.9 H (11.5-14.5) % Plt Count 104 L (140-440) X 10*3/uL Plt Count Comment DECREASED A Potassium 3.2 L (3.5-5.5) mmol/L BUN 32.2 H (9.0-27.0) mg/dL Est GFR (CKD-EPI)AfAm 50.1 L (60.0-200.0) Est GFR (CKD-EPI)NonAf 43.3 L (60.0-200.0) BUN/Creatinine Ratio 26.83 H (12.00-20.00) Ratio Calcium 7.5 L (8.7-10.3) mg/dL Crossmatch See Detail Microbiology - Last 24 Hours (Table) 06/13/22 15:16 Blood Culture - Preliminary Blood No Growth after 48 hours 06/13/22 14:44 Blood Culture - Preliminary Blood No Growth after 48 hours Assessment and Plan Assessment: * Altered mental status, likely due to toxic metabolic encephalopathy. Patient has an acute UTI. * Abnormal EEG with evidence of epileptiform activity and triphasic activity suggestive of metabolic encephalopathy * History of multiple sclerosis, in remission. Patient is paraplegic, nonambulatory. * Atrial fibrillation, status post placement of watchman device on 05/28/2022. * PFO noted on 2-D echo. * Staghorn calculus * Obesity * History of back surgery Plan: * Patient's mentation has much improved. Her rigidity has resolved. She is almost fully oriented. Examination shows no obvious focality. Continues to be paraparetic, which is chronic from her history of MS. * CT head showed no acute process. * Routine EEG performed 06/13/2022 was abnormal with background slowing of moderate to severe degree, suggestive of generalized cerebral dysfunction as can be seen with toxic metabolic encephalopathy. Presence of frequent sharp waves seen in the left or right parietal region, sometimes bisynchronous suggestive of underlying cortical irritability and tendency for seizures. At times these appears more triphasic type, which can be seen with metabolic encephalopathy. Clinical correlation and a follow-up EEG strongly recomme nded. * Prolonged 2.5 hour EEG today 06/14/2022 was abnormal EEG. No seizures were recorded. No epileptiform activity was present. The triphasic waves mentioned above are not epileptiform in nature. Triphasic waves can be seen in the setting of a metabolic encephalopathy. The frontally predominant delta range slowing as well as diffuse theta delta range slowing is not epileptiform in nature. In combination, these findings indicate moderate diffuse cerebral dysfunction as may be seen in her toxic metabolic encephalopathy. * Patient received loading dose of Keppra 1000 mg yesterday, and now on 500 mg twice a day. Her mentation has much improved. The rigidity has resolved. * 2D-ECHO revealed normal left ventricular systolic function. Left ventricle hypertrophy. Mildly dilated right ventricle. Moderate MR. Cannot exclude PFO. Bubble study was performed and seems to be positive. Suggest cardiology consultation. * Patient has history of atrial fibrillation, status post watchman device. She was supposed to be on aspirin and Plavix, but patient has developed acute anemia, therefore antiplatelets have been on hold. IM to address the cause of his anemia and treatment. * B12 660, folate 8.10, CK 32 all normal. Prolactin 24.10. * Patient has acute UTI from gram-negative bacilli. Patient started on Rocephin 2 g every 24 hours.
[2022-06-16] MEDS ORDERED: POTASSIUM CHLORIDE ER 20 MEQ TAB.ER PO STA (11:05)
--- NOTE | 2022-06-16 11:08 | P.PN ---
Subjective Progress Note Date: 06/16/22 Hospital Course: 77-year-old female, intermediate resident with a history of MS, hypothyroidism, atrial fibrillation presenting with acute encephalopathy. Per sister, patient is alert and oriented at baseline. She is at intermediate due to reduced functional mobility, is currently bedbound. However, she has not had any issues with her mental status. Occasionally she gets urinary tract infection which affects her mentation, but not to this degree. Since presented to the ED, patient vital signs were within normal limits. Lab work showed hemoglobin of 7.4, platelet 133, pH 7.49, pCO2 29, creatinine 1.51, BUN 47, TSH 2.89, pro calcitonin 0.12, prolactin 24.1, urinalysis showed large leukocyte esterase, negative nitrites. D-dimer was elevated at 2.81. CT head showed no acute process. CT abdomen and pelvis showed constipation, splenomegaly, large right- sided staghorn renal calculus, mild right pleural effusion. EEG showed frequent sharp waves which may be suggestive of underlying cortical irritability and tendency for seizures, but it may also be related to toxic metabolic en cephalopathy. Prolonged EEG did not show any epileptiform discharges. Subjective: Patient seen and examined at bedside. No acute events overnight. Patient denies any chest pain, shortness of breath, abdominal pain, nausea, vomiting, diarrhea, constipation, or urinary complaints. Pertinent positives and negatives as discussed above, a complete review of systems was performed and all other systems are negative. Vitals Signs Reviewed. General: No distress, morbidly obese Derm: warm, dry Head: atraumatic, normocephalic, symmetric Eyes: Pupils equal and reactive, no scleral icterus Mouth: no lip lesion, mucus membranes moist Cardiovascular: S1S2 reg, no murmur Lungs: CTA bilateral, no rhonchi, no rales , no accessory muscle use Abdominal: soft, nontender to palpation, no guarding, no appreciable organomegaly Ext: no gross muscle atrophy, bilateral lower extremity edema Neuro: No focal deficits, CN II through XII grossly normal Psych: Awake, alert, oriented 3, cooperative Data Reviewed Today: Pertinent Labs: Hemoglobin 8.1, platelet 107, potassium 2.2, creatinine 0.96 Assessment and Plan: Active: Acute toxic metabolic encephalopathy Possible subclinical seizures Urinary tract infection History of kidney stones History of MS Right pleural effusion History of CHF Atrial fibrillation status post watchman Acute on chronic Normocytic anemia and thrombocytopenia Chronic kidney disease stage III Hypokalemia Hyperbilirubinemia History of Hypothyroidism -Mental status has improved remarkably, likely at her baseline -Neurology following, on oral Keppra 500 mg twice a day -Continue ceftriaxone 2 g IV every 24 hours -Urine culture growing gram-negative bacilli -Blood cultures no growth to date -oral Lasix 40 twice a day -Echocardiogram normal LV systolic function, LV hypertrophy, moderate MR, positive bubble study -Cardiology note reviewed: Medical management for PFO -Antiplatelet therapy likely in the setting of recent watchman procedure, however due to ongoing anemia, currently held -She is status post 1 unit PRBCs yesterday, repeat CBC tomorrow -Renal function remains stable -40 mEq oral potassium ordered, repeat BMP tomorrow -Hyperbilirubinemia likely the setting of acute infection -On home oral dose of levothyroxine DVT ppx: Subcu heparin Code status: Full code Anticipated discharge place: Back to intermediate Anticipated discharge time: Likely Friday Objective - Vital Signs Vital signs: Vital Signs Temp 97.8 F 06/16/22 07:51 Pulse 84 06/16/22 08:00 Resp 18 06/16/22 08:00 BP 102/61 06/16/22 07:51 Pulse Ox 96 06/16/22 08:00 FiO2 Intake & Output 06/15/22 06/16/22 06/16/22 18:59 06:59 18:59 Intake Total 310 Output Total 2050 1000 Balance -2049 - Intake: Blood Product 310 Rc As-1 Unit 310 [id number] Output: Urine 1850 1000 Emesis 200 Other: Voiding Method Bedpan External Catheter External Catheter Diaper Incontinent External Catheter - Labs CBC & Chem 7: 06/16/22 08:02 06/16/22 08:02 Labs: Abnormal Lab Results - Last 24 Hours (Table) 06/15/22 06/15/22 06/15/22 Range/Units 06:17 06:17 14:32 RBC 2.30 L (4.10-5.20) X 10*6/uL Hgb 6.5 L* (12.0-15.0) g/dL Hct 22.8 L (37.2-46.3) % MCV 99.1 H (80.0-97.0) fL MCHC 28.5 L (32.0-37.0) g/dL RDW 17.9 H (11.5-14.5) % Plt Count 104 L (140-440) X 10*3/uL Plt Count Comment DECREASED A Lymphocytes # (1.0-4.8) k/uL Potassium 3.2 L (3.5-5.5) mmol/L BUN 32.2 H (9.0-27.0) mg/dL Est GFR (CKD-EPI)AfAm 50.1 L (60.0-200.0) Est GFR (CKD-EPI)NonAf 43.3 L (60.0-200.0) BUN/Creatinine Ratio 26.83 H (12.00-20.00) Ratio Glucose (74-99) mg/dL Calcium 7.5 L (8.7-10.3) mg/dL Crossmatch See Detail 06/16/22 06/16/22 Range/Units 08:02 08:02 RBC 2.76 L (4.10-5.20) X 10*6/uL Hgb 8.1 L (12.0-15.0) g/dL Hct 25.8 L (37.2-46.3) % MCV (80.0-97.0) fL MCHC (32.0-37.0) g/dL RDW 16.2 H (11.5-14.5) % Plt Count 107 L (140-440) X 10*3/uL Plt Count Comment Lymphocytes # 0.8 L (1.0-4.8) k/uL Potassium 3.2 L (3.5-5.5) mmol/L BUN 23 H (9.0-27.0) mg/dL Est GFR (CKD-EPI)AfAm (60.0-200.0) Est GFR (CKD-EPI)NonAf (60.0-200.0) BUN/Creatinine Ratio (12.00-20.00) Ratio Glucose 102 H (74-99) mg/dL Calcium 7.0 L (8.7-10.3) mg/dL Crossmatch Microbiology - Last 24 Hours (Table) 06/13/22 15:16 Blood Culture - Preliminary Blood No Growth after 48 hours 06/13/22 14:44 Blood Culture - Preliminary Blood No Growth after 48 hours
[2022-06-16] MEDS: MELATONIN 3 MG TABLET PO PRN (20:29)
[2022-06-16] MEDS: MULTIVITAMINS, THERA 1 EACH TAB PO SCH (20:30)
[2022-06-16] MEDS: FERROUS SULFATE 325 MG TAB PO SCH (20:30)
--- NOTE | 2022-06-17 02:08 | P.PN ---
Subjective Progress Note Date: 06/16/22 Patient was seen for a follow-up. Patient's daughter was present today. Patient has much improved. Patient had undergone blood transfusion for anemia. Exact cause of anemia uncertain. Denies headache. No new focal symptoms. No seizures. Patient is better oriented. Patient tells me that she does have history of MS. She is upset about nursing staff at [facility] except for one nurse that she is happy with. She appears more comfortable, not in any respiratory distress. Patient states that her watchman device was performed by Dr. Jr Hoskins. Objective - Vital Signs Vital signs: Vital Signs Temp 97.8 F 06/16/22 14:00 Pulse 84 06/16/22 14:00 Resp 18 06/16/22 14:00 BP 110/64 06/16/22 14:00 Pulse Ox 98 06/16/22 14:00 FiO2 Intake & Output 06/15/22 06/16/22 06/16/22 18:59 06:59 18:59 Intake Total 310 Output Total 0 1000 400 Balance -2049 -690 -400 Intake: Blood Product 310 Rc As-1 Unit 310 [id number] Output: Urine 1850 1000 400 Emesis 200 Other: Voiding Method Bedpan External Catheter External Catheter Diaper Incontinent External Catheter - Exam Patient is alert and awake. She appears more comfortable. Speech and language functions are normal. Patient states it's May and the year is 2022. She states that she is in [facility] in [place]. She is now fully oriented. She is hard of hearing. Her cranial nerves are normal. Muscle strength is normal in the upper limbs. In the lower limbs ankle dorsiflexion is 3 on the right 2 on the left. Patient has bilateral Babinski. - Labs CBC & Chem 7: 06/16/22 08:02 06/16/22 08:02 Labs: Abnormal Lab Results - Last 24 Hours (Table) 06/15/22 06/16/22 06/16/22 Range/Units 14:32 08:02 08:02 RBC 2.76 L (3.80-5.40) m/uL Hgb 8.1 L (11.4-16.0) gm/dL Hct 25.8 L (34.0-46.0) % RDW 16.2 H (11.5-15.5) % Plt Count 107 L (150-450) k/uL Lymphocytes # 0.8 L (1.0-4.8) k/uL Potassium 3.2 L (3.5-5.1) mmol/L BUN 23 H (7-17) mg/dL Glucose 102 H (74-99) mg/dL Calcium 7.0 L (8.4-10.2) mg/dL Crossmatch See Detail Microbiology - Last 24 Hours (Table) 06/13/22 14:44 Blood Culture - Preliminary Blood No Growth after 72 hours 06/12/22 22:32 Urine Culture - Final Urine,Voided Providencia stuartii 06/13/22 15:16 Blood Culture - Preliminary Blood No Growth after 48 hours Assessment and Plan Assessment: * Altered mental status, likely due to toxic metabolic encephalopathy. Patient has an acute UTI, and the cultures have grown Providencia Stuartii. * Abnormal EEG with evidence of epileptiform activity and triphasic activity suggestive of metabolic encephalopathy * History of multiple sclerosis, in remission. Patient is paraplegic, nonambulatory. * Atrial fibrillation, status post placement of watchman device on 05/28/2022. * PFO noted on 2-D echo. * Anemia requiring transfusion. * Staghorn calculus * Obesity * History of back surgery Plan: * Patient's mentation has much improved. Her rigidity has resolved. She is now fully oriented. Examination shows no obvious focality. Continues to be paraparetic, which is chronic from her history of MS. * Patient was found to have PFO on 2-D echo. Cardiology was consulted. Recommending holding off on PFO closure, because patient will need dual antiplatelet medications and patient cannot receive DAP due to recent severe anemia. * Recommend patient undergoes evaluation for anemia. Once controlled, then patient would need PFO closure. Patient wants to have any cardiac procedure performed at [facility] with her graphic manager Dr. Jr Hoskins and Dr. Vuong. Discussed with Dr. Carrillo. * Continue Keppra 500 mg twice a day. Patient may undergo a repeat EEG as an outpatient. If comes back normal, that potentially Keppra could be weaned off in the future. * Discussed with patient and her daughter in detail. * Dr. Frank Moreno will resume neurology service in the morning. Recent workup: * Routine EEG performed 06/13/2022 was abnormal with background slowing of moderate to severe degree, suggestive of generalized cerebral dysfunction as can be seen with toxic metabolic encephalopathy. Presence of frequent sharp waves seen in the left or right parietal region, sometimes bisynchronous sug gestive of underlying cortical irritability and tendency for seizures. At times these appears more triphasic type, which can be seen with metabolic encephalopathy. Clinical correlation and a follow-up EEG strongly recommended. * Prolonged 2.5 hour EEG today 06/14/2022 was abnormal EEG. No seizures were recorded. No epileptiform activity was present. The triphasic waves mentioned above are not epileptiform in nature. Triphasic waves can be seen in the setting of a metabolic encephalopathy. The frontally predominant delta range slowing as well as diffuse theta delta range slowing is not epileptiform in nature. In combination, these findings indicate moderate diffuse cerebral dysfunction as may be seen in her toxic metabolic encephalopathy. * 2D-ECHO revealed normal left ventricular systolic function. Left ventricle hypertrophy. Mildly dilated right ventricle. Moderate MR. Cannot exclude PFO. Bubble study was performed and seems to be positive. Suggest cardiology consultation. * Patient has history of atrial fibrillation, status post watchman device. She was supposed to be on aspirin and Plavix, but patient has developed acute anemia, therefore antiplatelets have been on hold. IM to address the cause of his anemia and treatment. * B12 660, folate 8.10, CK 32 all normal. Prolactin 24.10. * Patient has acute UTI from gram-negative bacilli. Patient started on Rocephin 2 g every 24 hours.
[2022-06-17] MEDS: levETIRAcetam 500 MG TAB PO SCH ×2 (08:14→19:43)
[2022-06-17] MEDS: FUROSEMIDE 40 MG TAB PO SCH ×2 (08:14→16:34)
[2022-06-17] MEDS: LEVOTHYROXINE 137 MCG TAB PO SCH (08:14)
[2022-06-17] MEDS: HEPARIN SODIUM,PORCINE/PF 5,000 UNIT/0.5 ML SYRINGE SQ SCH ×2 (08:14→19:43)
[2022-06-17] MEDS: CALCIUM CARB-VIT D 500 MG-5 MCG TAB PO SCH (08:14)
[2022-06-17] MEDS: PANTOPRAZOLE 40 MG TABLET PO SCH (08:14)
[2022-06-17] MEDS: bisacodyL 10 MG SUPP RECTAL SCH (08:15)
[2022-06-17 09:28] LABS: Anion Gap 12.4 mmol/L (10.00-18.00); Blood Urea Nitrogen 15.3 mg/dL (9.0-27.0); Calcium 7.2 mg/dL (8.7-10.3); Carbon Dioxide 20.6 mmol/L (20.0-27.5); Non-African American GFR(CKD) 61.2 (60.0-200.0); Potassium 3.3 mmol/L (3.5-5.5)
[2022-06-17] MEDS ORDERED: POTASSIUM CHLORIDE ER 20 MEQ TAB.ER PO STA (10:22)
[2022-06-17 10:39] LABS: Basophils # (A) 0.02 X 10*3/uL (0.00-0.10); Basophils % (A) 0.4 %; Eosinophils # (A) 0.24 X 10*3/uL (0.04-0.35); Eosinophils % (A) 4.7 %; HCT 27.3 % (37.2-46.3); HGB 8.1 g/dL (12.0-15.0); Immature Grans, Automated 0.4 %; Lymphocytes # (A) 0.78 X 10*3/uL (0.90-5.00); Lymphocytes % (A) 15.2 %; MCH 27.9 pg (27.0-32.0); MCHC 29.7 g/dL (32.0-37.0); MCV 94.1 fL (80.0-97.0); Mean Platelet Volume 10.6 fL (9.5-12.2); Monocytes # (A) 0.99 X 10*3/uL (0.20-1.00); Monocytes % (A) 19.3 %; NRBC Per 100 WBC 0 /100 WBCS (0.0-0.0); Neutrophils # (A) 3.09 X 10*3/uL (1.80-7.70); Platelet Count 117 X 10*3/uL (140-440); RDW 17.2 % (11.5-14.5); WBC 5.14 X 10*3/uL (4.50-10.00)
--- NOTE | 2022-06-17 12:44 | P.PN ---
Subjective Progress Note Date: 06/17/22 HPI: The patient is a pleasant 77-year-old female patient with a past medical history significant for paroxysmal atrial fibrillation as well as history of multiple sclerosis and chronic anemia as well as hypertension and dyslipidemia was transferred from extended care facility to the hospital for further evaluation of change in mental status. The patient does have extremely poor functional capacity and she is almost wheelchair-bound. She does have history of gastrointestinal bleeding and for that reason she underwent placement of the watchman device. Currently she is not on any oral anticoagulation but she is on antiplatelet with Plavix. She is somewhat poor historian. She does follow with a asset specialist out of [facility]. Subsequently an echocardiogram was performed and revealed normal biventricular systolic function was evidence off possible patent foramen ovale was seen on the contrast study. Clinically and from a cardiac standpoint of view, she remains a stable. She reports no pain in the chest and no shortness of breath. She reports no dizziness or lightheadedness or any feeling of heart racing or fluttering. She was admitted mainly because of change in mental status but the workup does not seems to be consistent with TIA/CVA. The patent foramen ovale could be related to the procedure when she underwent the watchman device placement. She underwent a workup during the hospital admission including EKG showing sinus rhythm with no evidence of any ischemic ST or T-wave abnormalities. Please note that the patient is anemic and hemoglobin appears to be borderline low. 06/17/22 Patient states that she is feeling "unwell" today but is unable to specify why. Denies any chest pain or shortness of breath. She states she is unable to take anticoagulation due to bleeding. She also reports that she already has follow up appointments with her asset specialist and the go cart mechanic who did her Watchman. Hgb stable 8.1. No active bleeding reported. PHYSICAL EXAMINATION: This is a 77-year-old female in no apparent distress at the time of my examination. HEENT: Head is atraumatic, normocephalic. Pupils are equal, round. Sclerae anicteric. Conjunctivae are clear. Mucous membranes of the mouth are moist. Neck is supple. There is no jugular venous distention. No carotid bruit is heard. CHEST EXAMINATION: Lungs are diminished at bases. No chest wall tenderness is noted on palpation or with deep breathing. HEART EXAMINATION: Heart bradycardic, regular rhythm. S1, S2 heard. Systolic murmur, no gallops or rub. ABDOMEN: Soft, nontender. Bowel sounds are heard. EXTREMITIES: 2+ peripheral pulses with BLE edema and discoloration, no calf tenderness noted. NEUROLOGIC EXAMINATION: Patient is awake, alert and oriented x3. Impression and Plan: Altered Mental Status, improved Patent foramen ovale on an echocardiogram was performed recently Paroxysmal atrial fibrillation status post placement of the watchman device History of gastrointestinal bleeding History of multiple sclerosis Chronic anemia Plan: Discussed with patient, medical management for patent foramen ovale at this time given anemia, she would like to follow up with her cardiologists outpatient. Recommend anemia work up. Recommend starting aspirin when cleared medically. Ca rdiology to sign off. Please call with any questions. Objective - Vital Signs Vital signs: Vital Signs Temp 98.4 F 06/17/22 07:23 Pulse 97 06/17/22 10:59 Resp 18 06/17/22 10:59 BP 99/51 06/17/22 07:23 Pulse Ox 97 06/17/22 07:23 FiO2 Intake & Output 06/16/22 06/17/22 06/17/22 18:59 06:59 18:59 Output Total 400 1100 Balance -400 -1100 Output: Urine 400 1100 Other: Voiding Method External Catheter External Catheter External Catheter - Labs CBC & Chem 7: 06/17/22 05:59 06/17/22 05:59 Labs: Abnormal Lab Results - Last 24 Hours (Table) 06/17/22 06/17/22 Range/Units 05:59 05:59 RBC 2.90 L (4.10-5.20) X 10*6/uL Hgb 8.1 L (12.0-15.0) g/dL Hct 27.3 L (37.2-46.3) % MCHC 29.7 L (32.0-37.0) g/dL RDW 17.2 H (11.5-14.5) % Plt Count 117 L (140-440) X 10*3/uL Lymphocytes # 0.78 L (0.90-5.00) X 10*3/uL Potassium 3.3 L (3.5-5.5) mmol/L Glucose 113 H (70-110) mg/dL Calcium 7.2 L (8.7-10.3) mg/dL Microbiology - Last 24 Hours (Table) 06/12/22 22:32 Urine Culture - Final Urine,Voided Providencia stuartii 06/13/22 15:16 Blood Culture - Preliminary Blood No Growth after 72 hours 06/13/22 14:44 Blood Culture - Preliminary Blood No Growth after 72 hours
--- NOTE | 2022-06-17 13:05 | P.PN ---
Subjective Progress Note Date: 06/17/22 I'm seeing the patient for the first time during this admission. Please refer to Dr. Parr for further details. It seems the patient feels the she still much better compared to initial presentation. She had acute urinary tract infection with altered mental status and her mentation is improved. She has history of multiple sclerosis for years. Objective - Vital Signs Vital signs: Vital Signs Temp 98.4 F 06/17/22 07:23 Pulse 97 06/17/22 10:59 Resp 18 06/17/22 10:59 BP 99/51 06/17/22 07:23 Pulse Ox 97 06/17/22 07:23 FiO2 Intake & Output 06/16/22 06/17/22 06/17/22 18:59 06:59 18:59 Output Total 400 1100 Balance -400 -1100 Output: Urine 400 1100 Other: Voiding Method External Catheter External Catheter External Catheter - Exam Patient is awake alert oriented to self place and time. His following simple commands. No aphasia and no neglect. The pupils are round equal and reactive to light. Extraocular movement is intact. Visual reynaga are full to confrontation. It appears the patient has a mild left facial weakness. No dysarthria. Strength is the uppers is 5 out of 5. In the lowers has ankle dorsiflexion is 3 on the right and about 2-3 on the left. Positive upgoing on the left. Recent workup: * Routine EEG performed 06/13/2022 was abnormal with background slowing of moderate to severe degree, suggestive of generalized cerebral dysfunction as can be seen with toxic metabolic encephalopathy. Presence of frequent sharp waves seen in the left or right parietal region, sometimes bisynchronous suggestive of underlying cortical irritability and tendency for seizures. At times these appears more triphasic type, which can be seen with metabolic encephalopathy. Clinical correlation and a follow-up EEG strongly recommended. * Prolonged 2.5 hour EEG today 06/14/2022 was abnormal EEG. No seizures were recorded. No epileptiform activity was present. The triphasic waves mentioned above are not epileptiform in nature. Triphasic waves can be seen in the setting of a metabolic encephalopathy. The frontally predominant delta range slowing as well as diffuse theta delta range slowing is not epileptiform in nature. In combination, these findings indicate moderate diffuse cerebral dysfunction as may be seen in her toxic metabolic encephalopathy. * 2D-ECHO revealed normal left ventricular systolic function. Left ventricle hypertrophy. Mildly dilated right ventricle. Moderate MR. Cannot exclude PFO. Bubble study was performed and seems to be positive. Suggest cardiology consultation. * Patient has history of atrial fibrillation, status post watchman device. She was supposed to be on aspirin and Plavix, but patient has developed acute anemia, therefore antiplatelets have been on hold. IM to address the cause of his anemia and treatment. * B12 660, folate 8.10, CK 32 all normal. Prolactin 24.10. * Patient has acute UTI from gram-negative bacilli. Patient started on Rocephin 2 g every 24 hours. - Labs CBC & Chem 7: 06/17/22 05:59 06/17/22 05:59 Labs: Abnormal Lab Results - Last 24 Hours (Table) 06/17/22 06/17/22 Range/Units 05:59 05:59 RBC 2.90 L (4.10-5.20) X 10*6/uL Hgb 8.1 L (12.0-15.0) g/dL Hct 27.3 L (37.2-46.3) % MCHC 29.7 L (32.0-37.0) g/dL RDW 17.2 H (11.5-14.5) % Plt Count 117 L (140-440) X 10*3/uL Lymphocytes # 0.78 L (0.90-5.00) X 10*3/uL Potassium 3.3 L (3.5-5.5) mmol/L Glucose 113 H (70-110) mg/dL Calcium 7.2 L (8.7-10.3) mg/dL Microbiology - Last 24 Hours (Table) 06/12/22 22:32 Urine Culture - Final Urine,Voided Providencia stuartii 06/13/22 15:16 Blood Culture - Preliminary Blood No Growth after 72 hours 06/13/22 14:44 Blood Culture - Preliminary Blood No Growth after 72 hours Assessment and Plan Assessment: * Altered mental status, likely due to toxic metabolic encephalopathy. Patient has an acute UTI, and the cultures have grown Providencia Stuartii---improved * Abnormal EEG with evidence of epileptiform activity and triphasic activity suggestive of metabolic encephalopathy * History of multiple sclerosis, in remission. Patient is paraplegic, nonambulatory. * Atrial fibrillation, status post placement of watchman device on 05/28/2022. * PFO noted on 2-D echo. * Anemia requiring transfusion. * Staghorn calculus * Obesity * History of back surgery Plan: * Patient's mentation has much improved. Her rigidity has resolved. She is now fully oriented. Examination shows no obvious focality. Continues to be paraparetic, which is chronic from her history of MS. * Patient was found to have PFO on 2-D echo. Cardiology was consulted. Per Dr. Guillory, recommended holding off on PFO closure, because patient will need dual antiplatelet medications and patient cannot receive DAP due to recent severe anemia. * Recommend patient undergoes evaluation for anemia. Once controlled, then patient would need PFO closure. Patient wants to have any cardiac procedure performed at [facility] with her supervisor lending activities Dr. Jr Hoskins and Dr. Vuong. * Continue Keppra 500 mg twice a day. Patient may undergo a repeat EEG as an outpatient. If comes back normal, that potentially Keppra could be weaned off in the future. The plan is discussed with patient. Otherwise no additional neurological work-up. Will sign off. Please reconsult if needed. Time with Patient: Less than 30
--- NOTE | 2022-06-17 14:40 | P.DS ---
Providers Date of admission: 06/12/22 22:51 Expected date of discharge: 06/17/22 Attending physician: Royal Lei MD Consults: 06/13/22 09:06 Consult Physician Urgent Consulting Provider: Frank Moreno Consult Reason/Comments: encephalopathy Do you want consulting provider notified?: Yes Primary care physician: Samantha Hanson, DO Hospital Course: 77-year-old female, shelter resident with a history of MS, hypothyroidism, atrial fibrillation presenting with acute encephalopathy. Per sister, patient is alert and oriented at baseline. She is at shelter due to reduced functional mobility, is currently bedbound. However, she has not had any issues with her mental status. Occasionally she gets urinary tract infection which affects her mentation, but not to this degree. Since presented to the ED, patient vital signs were within normal limits. Lab work showed hemoglobin of 7.4, platelet 133, pH 7.49, pCO2 29, creatinine 1.51, BUN 47, TSH 2.89, pro c alcitonin 0.12, prolactin 24.1, urinalysis showed large leukocyte esterase, negative nitrites. D-dimer was elevated at 2.81. CT head showed no acute process. CT abdomen and pelvis showed constipation, splenomegaly, large right- sided staghorn renal calculus, mild right pleural effusion. EEG showed frequent sharp waves which may be suggestive of underlying cortical irritability and tendency for seizures, but it may also be related to toxic metabolic encephalopathy. Prolonged EEG did not show any epileptiform discharges. Echocardiogram was also done which showed normal LV systolic function, LV hypertrophy, moderate MR, positive bubble study. Cardiology recommended medical management for PFO and outpatient follow-up. Urine culture came back positive for Providencia stuartii. Plans for discharge back to senior care facility on 6 days of Levaquin 250 mg by mouth daily to complete a total of 10 days of antibiotics. She will also be continued on Keppra 500 mg by mouth twice a day for empiric treatment of seizures. Her anemia is likely related to hematuria from the large staghorn renal calculus. Plans to repeat CBC within 3 days of discharge. Patient seen and examined at bedside. No acute events overnight. Patient denies any chest pain, shortness of breath, palpitations. Pertinent studies include chest x-ray, brain CT, CTAP, venous Doppler, echocardiogram, EEG. General: No distress, morbidly obese Derm: warm, dry Head: atraumatic, normocephalic, symmetric Eyes: no scleral icterus Mouth: no lip lesion, mucus membranes moist Cardiovascular: S1S2 reg, no murmur Lungs: CTA bilateral, no rhonchi, no rales , no accessory muscle use Abdominal: soft, nontender to palpation, no guarding, no appreciable organomegaly Ext: no gross muscle atrophy, bilateral lower extremity edema Neuro: No focal deficits Psych: Awake, alert, oriented 3, cooperative Discharge diagnoses: Acute toxic metabolic encephalopathy Possible subclinical seizures Urinary tract infection History of kidney stones History of MS Right pleural effusion History of CHF Atrial fibrillation status post watchman Acute on chronic Normocytic anemia and thrombocytopenia Chronic kidney disease stage III Hypokalemia Hyperbilirubinemia History of Hypothyroidism This complex discharge took 35 minutes to complete. Patient Condition at Discharge: Stable Plan - Discharge Summary Discharge Rx Participant: Yes New Discharge Prescriptions: New levETIRAcetam [Keppra] 500 mg PO Q12HR tab Levofloxacin [Levaquin] 250 mg PO DAILY 6 Days #6 tablet Continue Multivitamins, Thera [Multivitamin (formulary)] 1 tab PO HS Lidocaine/Menthol [Icy Hot 4%-1% Patch] 1 patch TOPICAL DAILY PRN PRN Reason: Pain Cyclobenzaprine [Flexeril] 10 mg PO Q8H PRN PRN Reason: Muscle Spasm Calcium Carbonate/Vitamin D3 [Calcium 600 mg-Vit D3 5 mcg (200 unit)] 1 tab PO DAILY Lactobacillus Acidophilus [Acidophilus] 1 cap PO DAILY Aspirin 81 mg PO DAILY Spironolactone 25 mg PO DAILY Potassium Chloride ER [K-Dur 20] 40 meq PO BID-W/MEALS Pantoprazole [Protonix] 40 mg PO DAILY Mirabegron [Myrbetriq] 50 mg PO DAILY Melatonin 3 mg PO HS PRN PRN Reason: Insomnia Magnesium Chloride- Calcium 64-106mg 1 tab PO DAILY Clopidogrel [Plavix] 75 mg PO DAILY Loratadine [Claritin] 10 mg PO DAILY Levothyroxine Sodium [Synthroid] 137 mcg PO DAILY Furosemide [Lasix] 40 mg PO BID Dextran/Hypromellose/Glycerin [Genteal Tears 0.1%-0.2%-0.3%] 2 drops BOTH EYES BID Ferrous Sulfate [Iron (65 MG Elemental)] 325 mg PO HS Cranberry Fruit [Cranberry] 465 mg PO BID bisacodyL [Dulcolax] 10 mg PO HS PRN PRN Reason: Constipation Discontinued traMADol HCL 50 mg PO Q12H PRN PRN Reason: Pain Promethazine HCl 12.5 mg PO Q6H PRN PRN Reason: Nausea And Vomiting Doxycycline Monohydrate 100 mg PO BID Discharge Medication List Aspirin 81 mg PO DAILY 06/12/22 [History] Calcium Carbonate/Vitamin D3 [Calcium 600 mg-Vit D3 5 mcg (200 unit)] 1 tab PO DAILY 06/12/22 [History] Clopidogrel [Plavix] 75 mg PO DAILY 06/12/22 [History] Cranberry Fruit [Cranberry] 465 mg PO BID 06/12/22 [History] Cyclobenzaprine [Flexeril] 10 mg PO Q8H PRN 06/12/22 [History] Dextran/Hypromellose/Glycerin [Genteal Tears 0.1%-0.2%-0.3%] 2 drops BOTH EYES BID 06/12/22 [History] Ferrous Sulfate [Iron (65 MG Elemental)] 325 mg PO HS 06/12/22 [History] Furosemide [Lasix] 40 mg PO BID 06/12/22 [History] Lactobacillus Acidophilus [Acidophilus] 1 cap PO DAILY 06/12/22 [History] Levothyroxine Sodium [Synthroid] 137 mcg PO DAILY 06/12/22 [History] Lidocaine/Menthol [Icy Hot 4%-1% Patch] 1 patch TOPICAL DAILY PRN 06/12/22 [History] Loratadine [Claritin] 10 mg PO DAILY 06/12/22 [History] Magnesium Chloride- Calcium 64-106mg 1 tab PO DAILY 06/12/22 [History] Melatonin 3 mg PO HS PRN 06/12/22 [History] Mirabegron [Myrbetriq] 50 mg PO DAILY 06/12/22 [History] Multivitamins, Thera [Multivitamin (formulary)] 1 tab PO HS 06/12/22 [History] Pantoprazole [Protonix] 40 mg PO DAILY 06/12/22 [History] Potassium Chloride ER [K-Dur 20] 40 meq PO BID-W/MEALS 06/12/22 [History] Spironolactone 25 mg PO DAILY 06/12/22 [History] bisacodyL [Dulcolax] 10 mg PO HS PRN 06/12/22 [History] Levofloxacin [Levaquin] 250 mg PO DAILY 6 Days #6 tablet 06/17/22 [Rx] levETIRAcetam [Keppra] 500 mg PO Q12HR tab 06/17/22 [Rx] Follow up Appointment(s)/Referral(s): Michi Sheth MD [STAFF PHYSICIAN] - 1 Week Samantha Hanson DO [Primary Care Provider] - 1-2 days Ambulatory/Diagnostic Orders: Complete Blood Count w/diff [LAB.AMB] Time Frame: 3 Days, Location: None Se lected Activity/Diet/Wound Care/Special Instructions: Diet: Cardiac FU PCP within 1-2 days of discharge. Repeat CBC in 3 days. Follow up results with PCP. Discharge Disposition: TRANSFER TO SNF/ECF
[2022-06-17] MEDS: FERROUS SULFATE 325 MG TAB PO SCH (19:43)
[2022-06-17] MEDS: MULTIVITAMINS, THERA 1 EACH TAB PO SCH (19:43)
[2022-06-18] MEDS: LEVOTHYROXINE 137 MCG TAB PO SCH (06:38)
[2022-06-18] MEDS: PANTOPRAZOLE 40 MG TABLET PO SCH (06:38)
[2022-06-18] MEDS: bisacodyL 10 MG SUPP RECTAL SCH (08:41)
[2022-06-18 08:54] VITALS: BP 102/54; PULSE 98; RESP 19; TEMP 98.4
[2022-06-18] MEDS: HEPARIN SODIUM,PORCINE/PF 5,000 UNIT/0.5 ML SYRINGE SQ SCH (08:55)
[2022-06-18] MEDS: FUROSEMIDE 40 MG TAB PO SCH (08:55)
[2022-06-18] MEDS: CALCIUM CARB-VIT D 500 MG-5 MCG TAB PO SCH (08:55)
[2022-06-18] MEDS: levETIRAcetam 500 MG TAB PO SCH (08:55)
--- NOTE | 2022-06-18 13:49 | P.DS ---
Providers Date of admission: 06/12/22 22:51 Expected date of discharge: 06/18/22 Attending physician: Royal Lei MD Consults: 06/13/22 09:06 Consult Physician Urgent Consulting Provider: Frank Moreno Consult Reason/Comments: encephalopathy Do you want consulting provider notified?: Yes Primary care physician: Samantha Hanson, DO Hospital Course: 77-year-old female, custodial resident with a history of MS, hypothyroidism, atrial fibrillation presenting with acute encephalopathy. Per sister, patient is alert and oriented at baseline. She is at custodial due to reduced functional mobility, is currently bedbound. However, she has not had any issues with her mental status. Occasionally she gets urinary tract infection which affects her mentation, but not to this degree. Since presented to the ED, patient vital signs were within normal limits. Lab work showed hemoglobin of 7.4, platelet 133, pH 7.49, pCO2 29, creatinine 1.51, BUN 47, TSH 2.89, pro c alcitonin 0.12, prolactin 24.1, urinalysis showed large leukocyte esterase, negative nitrites. D-dimer was elevated at 2.81. CT head showed no acute process. CT abdomen and pelvis showed constipation, splenomegaly, large right- sided staghorn renal calculus, mild right pleural effusion. EEG showed frequent sharp waves which may be suggestive of underlying cortical irritability and tendency for seizures, but it may also be related to toxic metabolic encephalopathy. Prolonged EEG did not show any epileptiform discharges. Echocardiogram was also done which showed normal LV systolic function, LV hypertrophy, moderate MR, positive bubble study. Cardiology recommended medical management for PFO and outpatient follow-up. Urine culture came back positive for Providencia stuartii. Plans for discharge back to [facility] facility on 6 days of Levaquin 250 mg by mouth daily to complete a total of 10 days of antibiotics. She will also be continued on Keppra 500 mg by mouth twice a day for empiric treatment of seizures. Her anemia is likely related to hematuria from the large staghorn renal calculus. Plans to repeat CBC within 3 days of discharge. Patient seen and examined at bedside. No acute events overnight. Patient denies any chest pain, shortness of breath, palpitations. She states that she is feeling better today. Patient was initially supposed to be discharged on 06/17, but due to issues at [facility], discharge was held. Pertinent studies include chest x-ray, brain CT, CTAP, venous Doppler, echocardiogram, EEG. General: No distress, morbidly obese Derm: warm, dry Head: atraumatic, normocephalic, symmetric Eyes: no scleral icterus Mouth: no lip lesion, mucus membranes moist Cardiovascular: S1S2 reg, no murmur Lungs: CTA bilateral, no rhonchi, no rales , no accessory muscle use Abdominal: soft, nontender to palpation, no guarding, no appreciable organomegaly Ext: no gross muscle atrophy, bilateral lower extremity edema Neuro: No focal deficits Psych: Awake, alert, oriented 3, cooperative Discharge diagnoses: Acute toxic metabolic encephalopathy Possible subclinical seizures Urinary tract infection History of kidney stones History of MS Right pleural effusion History of CHF Atrial fibrillation status post watchman Acute on chronic Normocytic anemia and thrombocytopenia Chronic kidney disease stage III Hypokalemia Hyperbilirubinemia History of Hypothyroidism This complex discharge took 35 minutes to complete. Patient Condition at Discharge: Stable Plan - Discharge Summary Discharge Rx Participant: Yes New Discharge Prescriptions: New levETIRAcetam [Keppra] 500 mg PO Q12HR tab Levofloxacin [Levaquin] 250 mg PO DAILY 6 Days #6 tablet Continue Multivitamins, Thera [Multivitamin (formulary)] 1 tab PO HS Lidocaine/Menthol [Icy Hot 4%-1% Patch] 1 patch TOPICAL DAILY PRN PRN Reason: Pain Cyclobenzaprine [Flexeril] 10 mg PO Q8H PRN PRN Reason: Muscle Spasm Calcium Carbonate/Vitamin D3 [Calcium 600 mg-Vit D3 5 mcg (200 unit)] 1 tab PO DAILY Lactobacillus Acidophilus [Acidophilus] 1 cap PO DAILY Aspirin 81 mg PO DAILY Spironolactone 25 mg PO DAILY Potassium Chloride ER [K-Dur 20] 40 meq PO BID-W/MEALS Pantoprazole [Protonix] 40 mg PO DAILY Mirabegron [Myrbetriq] 50 mg PO DAILY Melatonin 3 mg PO HS PRN PRN Reason: Insomnia Magnesium Chloride- Calcium 64-106mg 1 tab PO DAILY Clopidogrel [Plavix] 75 mg PO DAILY Loratadine [Claritin] 10 mg PO DAILY Levothyroxine Sodium [Synthroid] 137 mcg PO DAILY Furosemide [Lasix] 40 mg PO BID Dextran/Hypromellose/Glycerin [Genteal Tears 0.1%-0.2%-0.3%] 2 drops BOTH EYES BID Ferrous Sulfate [Iron (65 MG Elemental)] 325 mg PO HS Cranberry Fruit [Cranberry] 465 mg PO BID bisacodyL [Dulcolax] 10 mg PO HS PRN PRN Reason: Constipation Discontinued traMADol HCL 50 mg PO Q12H PRN PRN Reason: Pain Promethazine HCl 12.5 mg PO Q6H PRN PRN Reason: Nausea And Vomiting Doxycycline Monohydrate 100 mg PO BID Discharge Medication List Aspirin 81 mg PO DAILY 06/12/22 [History] Calcium Carbonate/Vitamin D3 [Calcium 600 mg-Vit D3 5 mcg (200 unit)] 1 tab PO DAILY 06/12/22 [History] Clopidogrel [Plavix] 75 mg PO DAILY 06/12/22 [History] Cranberry Fruit [Cranberry] 465 mg PO BID 06/12/22 [History] Cyclobenzaprine [Flexeril] 10 mg PO Q8H PRN 06/12/22 [History] Dextran/Hypromellose/Glycerin [Genteal Tears 0.1%-0.2%-0.3%] 2 drops BOTH EYES BID 06/12/22 [History] Ferrous Sulfate [Iron (65 MG Elemental)] 325 mg PO HS 06/12/22 [History] Furosemide [Lasix] 40 mg PO BID 06/12/22 [History] Lactobacillus Acidophilus [Acidophilus] 1 cap PO DAILY 06/12/22 [History] Levothyroxine Sodium [Synthroid] 137 mcg PO DAILY 06/12/22 [History] Lidocaine/Menthol [Icy Hot 4%-1% Patch] 1 patch TOPICAL DAILY PRN 06/12/22 [History] Loratadine [Claritin] 10 mg PO DAILY 06/12/22 [History] Magnesium Chloride- Calcium 64-106mg 1 tab PO DAILY 06/12/22 [History] Melatonin 3 mg PO HS PRN 06/12/22 [History] Mirabegron [Myrbetriq] 50 mg PO DAILY 06/12/22 [History] Multivitamins, Thera [Multivitamin (formulary)] 1 tab PO HS 06/12/22 [History] Pantoprazole [Protonix] 40 mg PO DAILY 06/12/22 [History] Potassium Chloride ER [K-Dur 20] 40 meq PO BID-W/MEALS 06/12/22 [History] Spironolactone 25 mg PO DAILY 06/12/22 [History] bisacodyL [Dulcolax] 10 mg PO HS PRN 06/12/22 [History] Levofloxacin [Levaquin] 250 mg PO DAILY 6 Days #6 tablet 06/17/22 [Rx] levETIRAcetam [Keppra] 500 mg PO Q12HR tab 06/17/22 [Rx] Follow up Appointment(s)/Referral(s): Michi Sheth MD [STAFF PHYSICIAN] - 1 Week Samantha Hanson DO [Primary Care Provider] - 1-2 days Ambulatory/Diagnostic Orders: Complete Blood Count w/diff [LAB.AMB] Time Frame: 3 Days, Location: None Selected Activity/Diet/Wound Care/Special Instructions: Diet: Cardiac FU PCP within 1-2 days of discharge. Repeat CBC in 3 days. Follow up results with PCP. Discharge Disposition: TRANSFER TO SNF/ECF
== END 2022-06-18 14:41 | DRG 689 ==
LOC: EC 17:28 → 4SSUR 22:51
PROVIDERS: ADMIT Internal Medicine; ATTEND Internal Medicine
PROC: 30233N1 Transfusion of Nonautologous Red Blood Cells into Peripheral Vein, Percutaneous Approach (ICD-10-PCS; principal; 2022-06-16)
DX: N39.0 Urinary tract infection, site not specified (principal); G92.8 Other toxic encephalopathy; Q21.12 Patent foramen ovale; R17 Unspecified jaundice; G82.20 Paraplegia, unspecified; I13.0 Hypertensive heart and chronic kidney disease with heart failure and stage 1 through stage 4 chronic kidney disease, or unspecified chronic kidney disease; Z68.41 Body mass index [BMI] 40.0-44.9, adult; E87.3 Alkalosis; G35 Multiple sclerosis; I48.0 Paroxysmal atrial fibrillation; K59.00 Constipation, unspecified; E66.9 Obesity, unspecified; N18.30 Chronic kidney disease, stage 3 unspecified; D64.9 Anemia, unspecified; R16.1 Splenomegaly, not elsewhere classified; K21.9 Gastro-esophageal reflux disease without esophagitis; E03.9 Hypothyroidism, unspecified; N20.0 Calculus of kidney; R56.9 Unspecified convulsions; Z74.01 Bed confinement status; Z79.02 Long term (current) use of antithrombotics/antiplatelets; I50.9 Heart failure, unspecified; Z20.822 Contact with and (suspected) exposure to COVID-19; Z79.82 Long term (current) use of aspirin; Z79.890 Hormone replacement therapy; Z79.899 Other long term (current) drug therapy; Z87.440 Personal history of urinary (tract) infections; Z87.442 Personal history of urinary calculi; Z95.818 Presence of other cardiac implants and grafts; Z99.3 Dependence on wheelchair; Z86.14 Personal history of Methicillin resistant Staphylococcus aureus infection; Z96.60 Presence of unspecified orthopedic joint implant
CPT/HCPCS: 36415; 36600; 70450; 71045; 74176; 80048; 80053; 81001; 82140; 82550; 82607; 82746; 82805; 83605; 83735; 83880; 84145; 84146; 84443; 84484; 85025; 85379; 86850; 86870; 86880; 86900; 86901; 86902; 86920; 87040; 87077; 87086; 87186; 87635; 93005; 93306; 93970; 94760; 95713; 95816

== ENCOUNTER 2022-06-19 17:01 | Inpatient (IN) | payer MEDICARE, OTHER ==
[2022-06-19] MEDS ORDERED: ACETAMINOPHEN TAB 500 MG TAB PO STA (18:13)
[2022-06-19] MEDS ORDERED: IBUPROFEN 600 MG TAB PO STA (18:13)
--- NOTE | 2022-06-19 18:13 | ED ---
General Adult HPI - General Chief complaint: Fever Stated complaint: Weakness Time Seen by Provider: 06/19/22 17:40 Source: patient, EMS, RN notes reviewed, old records reviewed Mode of arrival: EMS Limitations: physical limitation - History of Present Illness Initial comments: This is a 77-year-old female presents to the emergency department from a skilled nursing there is nobody with the patient to give any further history than what the patient is told me. She states that she is here because she doesn't feel well. She cannot be more specific she has no specific areas of pain she denies any difficulty breathing she denies any vomiting she denies any abdominal pain she denies any diarrhea. Patient denies knowing that she has a fever. Patient st ates she's been a skilled nursing of urine does not walk but can't be specific as to why she is in the skilled nursing. - Related Data Home Medications Medication Instructions Recorded Confirmed Aspirin 81 mg PO DAILY 06/12/22 06/19/22 Clopidogrel [Plavix] 75 mg PO DAILY 06/12/22 06/19/22 Cranberry Fruit [Cranberry] 465 mg PO BID 06/12/22 06/19/22 Dextran/Hypromellose/Glycerin 2 drops BOTH EYES BID@0800,1600 06/12/22 06/19/22 [Genteal Tears 0.1%-0.2%-0.3%] Ferrous Sulfate [Iron (65 MG 325 mg PO DAILY@1800 06/12/22 06/19/22 Elemental)] Furosemide [Lasix] 40 mg PO BID@0800,1600 06/12/22 06/19/22 Lactobacillus Acidophilus 1 cap PO DAILY 06/12/22 06/19/22 [Acidophilus] Levothyroxine Sodium [Synthroid] 137 mcg PO DAILY@0600 06/12/22 06/19/22 Loratadine [Claritin] 10 mg PO DAILY 06/12/22 06/19/22 Magnesium Chloride- Calcium 1 tab PO DAILY 06/12/22 06/19/22 64-106mg Melatonin 3 mg PO HS 06/12/22 06/19/22 Mirabegron [Myrbetriq] 50 mg PO DAILY 06/12/22 06/19/22 Multivitamins, Thera [Multivitamin 1 tab PO DAILY 06/12/22 06/19/22 (formulary)] Pantoprazole [Protonix] 40 mg PO DAILY 06/12/22 06/19/22 Potassium Chloride ER [K-Dur 20] 20 meq PO BID-W/MEALS 06/12/22 06/19/22 Spironolactone 25 mg PO DAILY 06/12/22 06/19/22 bisacodyL [Dulcolax] 10 mg PO HS 06/12/22 06/19/22 Calcium Carbonate [Calcium] 600 mg PO DAILY 06/19/22 06/19/22 levETIRAcetam [Keppra] 500 mg PO BID 06/19/22 06/19/22 Previous Rx's Medication Instructions Recorded Levofloxacin [Levaquin] 250 mg PO DAILY 6 Days #6 tablet 06/17/22 Allergies Allergy/AdvReac Type Severity Reaction Status Date / Time No Known Allergies Allergy Verified 06/19/22 20:03 Review of Systems ROS Statement: Those systems with pertinent positive or pertinent negative responses have been documented in the HPI. ROS Other: All systems not noted in ROS Statement are negative. Past Medical History Past Medical History: Atrial Fibrillation, GERD/Reflux, Hypertension, Thyroid Disorder Additional Past Medical History / Comment(s): MS History of Any Multi-Drug Resistant Organisms: MRSA Date of last positivie culture/infection: 2009 MDRO Source:: left knee Past Surgical History: Unable to Obtain, Joint Replacement Past Psychological History: Depression Smoking Status: Never smoker Past Alcohol Use History: None Reported Past Drug Use History: None Reported General Exam - General Exam Comments Initial Comments: GENERAL: Patient is well-developed and well-nourished. Patient is nontoxic and well- hydrated and is in no acute distress. When I went into the room the patient was sleeping and had to wake her to speak with her ENT: Neck is soft and supple. No significant lymphadenopathy is noted. Oropharynx is clear. Moist mucous membranes. Neck has full range of motion without el iciting any pain. EYES: The sclera were anicteric and conjunctiva were pink and moist. Extraocular movements were intact and pupils were equal round and reactive to light. Eyelids were unremarkable. PULMONARY: Unlabored respirations. Good breath sounds bilaterally. No audible rales rhonchi or wheezing was noted. CARDIOVASCULAR: There is a regular rate and rhythm without any murmurs gallops or rubs. ABDOMEN: Soft and nontender with normal bowel sounds. SKIN: Skin is clear with no lesions or rashes and otherwise unremarkable. NEUROLOGIC: Patient is alert and oriented 2. Cranial nerves II through XII are grossly intact. Motor and sensory are also intact. Normal speech, volume and content. Symmetrical smile. MUSCULOSKELETAL: Normal extremities with adequate strength and full range of motion. Bilateral edema 2+ LYMPHATICS: No significant lymphadenopathy is noted PSYCHIATRIC: Normal psychiatric evaluation. Limitations: physical limitation Course Vital Signs 06/19/22 06/19/22 06/19/22 17:24 17:28 19:36 Temperature 100.6 F H 100.0 F H Pulse Rate 109 H 100 Respiratory 18 18 18 Rate Blood Pressure 115/57 119/56 O2 Sat by Pulse 98 96 Oximetry 06/19/22 20:32 Temperature 98.5 F Pulse Rate 92 Respiratory 17 Rate Blood Pressure 106/44 O2 Sat by Pulse 96 Oximetry Medical Decision Making - Medical Decision Making EKG was interpreted by myself shows sinus tachycardia at 107 bpm TX interval is 156 QRS is 82 QT interval 360 QTC is 423. Patient's EKG shows no ST segment elevation or depression. Was pt. sent in by a medical professional or institution (, PA, MACHINE CEMENTER, urgent care, hospital, or skilled nursing...) When possible be specific @ -Patient was sent in from the skilled nursing Did you speak to anyone other than the patient for history (EMS, parent, family, police, friend...)? What history was obtained from this source @ -No Did you review nursing and triage notes (agree or disagree)? Why? @ -I reviewed and agree with nursing and triage notes Were old charts reviewed (outside hosp., previous admission, EMS record, old EKG, old radiological studies, urgent care reports/EKG's, skilled nursing records)? Report findings @ -I reviewed prior lab work and the patient's paperwork from the skilled nursing Differential Diagnosis (chest pain, altered mental status, abdominal pain women, abdominal pain men, vaginal bleeding, weakness, fever, dyspnea, syncope, headache, dizziness, GI bleed, back pain, seizure, CVA, palpatations, mental health, musculoskeletal)? @ -Differential Fever: Pneumonia, viral URI, endocarditis, myocarditis, pericarditis, otitis, sinusitis, peritonsillar Abscess, retropharyngeal Abscess, epiglottitis, peritonitis, appendicitis, Priyanka cystitis, diverticulitis, hepatitis, colitis, UTI, PID, TOA, pyelonephritis, prostatitis, epididymitis, meningitis, encephalitis, pulmonary embolism, CVA, thyroid storm, pancreatitis, adrenal crisis, cavernous sinus thrombosis, this is not meant to be an all-inclusive list. EKG interpreted by me (3pts min.). @ -As above X-rays interpreted by me (1pt min.). @ -Chest x-ray shows no acute abnormality. I think there is no significant inf iltrate this a very poor inspiration CT interpreted by me (1pt min.). @ -None done U/S interpreted by me (1pt. min.). @ -None done What testing was considered but not performed or refused? (CT, X-rays, U/S, labs)? Why? @ -None What meds were considered but not given or refused? Why? @ -None Did you discuss the management of the patient with other professionals (professionals i.e. , PA, MACHINE CEMENTER, lab, RT, psych nurse, social worker delinquency prevention, enrollment processor, teacher, control officer manager, keycase assembler)? Give summary @ -I spoke with the [facility]ist agreed to admit the patient Was smoking cessation discussed for >3mins.? @ -No Was critical care preformed (if so, how long)? @ -No Were there social determinants of health that impacted care today? How? (Homelessness, low income, unemployed, alcoholism, drug addiction, tr ansportation, low edu. Level, literacy, decrease access to med. care, alf, rehab)? @ -No Was there de-escalation of care discussed even if they declined (Discuss DNR or withdrawal of care, Hospice)? DNR status @ -No What co-morbidities impacted this encounter? (DM, HTN, Smoking, COPD, CAD, Cancer, CVA, ARF, Chemo, Hep., AIDS, mental health diagnosis, sleep apnea, morbid obesity)? @ -None Was patient admitted / discharged? Hospital course, mention meds given and route, prescriptions, significant lab abnormalities, going to OR and other pertinent info. @ -Patient came in to the hospital stating that she just doesn't feel well and she can give no further description. Patient's urine came back with an infection. Gave the patient 2 g of Rocephin. It was difficult to assess whether this was her baseline mental status because no one was there to verify I spoke with the [facility] agreed to admit the patient and the patient continued antibiotics. Undiagnosed new problem with uncertain prognosis? @ -No Drug Therapy requiring intensive monitoring for toxicity (Heparin, Nitro, Insulin, Cardizem)? @ -No Were any procedures done? @ -No Diagnosis/symptom? @ -Urinary tract infection Acute, or Chronic, or Acute on Chronic? @ -Acute Uncomplicated (without systemic symptoms) or Complicated (systemic symptoms)? @ -Complicated Side effects of treatment? @ -No Exacerbation, Progression, or Severe Exacerbation? @ -No Poses a threat to life or bodily function? How? (Chest pain, [place], [place], pneumonia, PE, COPD, DKA, ARF, appy, cholecystitis, CVA, Diverticulitis, Homicidal, Suicidal, threat to staff... and all critical care pts) @ -No - Lab Data Result diagrams: 06/19/22 18:07 06/19/22 18:07 Lab Results 06/19/22 06/19/22 06/19/22 Range/Units 18:07 18:07 18:07 WBC 11.6 H (3.8-10.6) k/uL RBC 3.31 L (3.80-5.40) m/uL Hgb 9.4 L (11.4-16.0) gm/dL Hct 29.8 L (34.0-46.0) % MCV 90.1 (80.0-100.0) fL MCH 28.5 (25.0-35.0) pg MCHC 31.6 (31.0-37.0) g/dL RDW 16.2 H (11.5-15.5) % Plt Count 170 D (150-450) k/uL MPV 7.8 Neutrophils % 80 % Lymphocytes % 8 % Monocytes % 10 % Eosinophils % 1 % Basophils % 0 % Neutrophils # 9.3 H (1.3-7.7) k/uL Lymphocytes # 0.9 L (1.0-4.8) k/uL Monocytes # 1.2 H (0-1.0) k/uL Eosinophils # 0.1 (0-0.7) k/uL Basophils # 0.0 (0-0.2) k/uL Hypochromasia Moderate Poikilocytosis Slight Anisocytosis Slight PT 13.8 H (9.0-12.0) sec INR 1.4 H (<1.2) APTT 31.4 H (22.0-30.0) sec Sodium (137-145) mmol/L Potassium (3.5-5.1) mmol/L Chloride (98-107) mmol/L Carbon Dioxide (22-30) mmol/L Anion Gap mmol/L BUN (7-17) mg/dL Creatinine (0.52-1.04) mg/dL Est GFR (CKD-EPI)AfAm (>60 ml/min/1.73 sqM) Est GFR (CKD-EPI)NonAf (>60 ml/min/1.73 sqM) Glucose (74-99) mg/dL Plasma Lactic Acid Luciano (0.7-2.0) mmol/L Calcium (8.4-10.2) mg/dL Total Bilirubin (0.2-1.3) mg/dL AST (14-36) U/L ALT (4-34) U/L Alkaline Phosphatase (38-126) U/L Total Protein (6.3-8.2) g/dL Albumin (3.5-5.0) g/dL Urine Color Dark Brown Urine Appearance Cloudy H (Clear) Urine pH 5.5 (5.0-8.0) Ur Specific [place] 1.014 (1.001-1.035) Urine Protein 1+ H (Negative) Urine Glucose (UA) Negative (Negative) Urine Ketones Negative (Negative) Urine Blood Large H (Negative) Urine Nitrite Negative (Negative) Urine Bilirubin Negative (Negative) Urine Urobilinogen 3.0 (<2.0) mg/dL Ur Leukocyte Esterase Large H (Negative) Urine RBC >182 H (0-5) /hpf Urine WBC >182 H (0-5) /hpf Hyaline Casts 86 H (0-2) /lpf Urine Mucus Occasional H (None) /hpf Influenza Type A (PCR) (Not Detectd) Influenza Type B (PCR) (Not Detectd) RSV (PCR) (Not Detectd) SARS-CoV-2 (PCR) (Not Detectd) 06/19/22 06/19/22 06/19/22 Range/Units 18:07 18:07 19:00 WBC (3.8-10.6) k/uL RBC (3.80-5.40) m/uL Hgb (11.4-16.0) gm/dL Hct (34.0-46.0) % MCV (80.0-100.0) fL MCH (25.0-35.0) pg MCHC (31.0-37.0) g/dL RDW (11.5-15.5) % Plt Count (150-450) k/uL MPV Neutrophils % % Lymphocytes % % Monocytes % % Eosinophils % % Basophils % % Neutrophils # (1.3-7.7) k/uL Lymphocytes # (1.0-4.8) k/uL Monocytes # (0-1.0) k/uL Eosinophils # (0-0.7) k/uL Basophils # (0-0.2) k/uL Hypochromasia Poikilocytosis Anisocytosis PT (9.0-12.0) sec INR (<1.2) APTT (22.0-30.0) sec Sodium 134 L (137-145) mmol/L Potassium 3.7 (3.5-5.1) mmol/L Chloride 104 (98-107) mmol/L Carbon Dioxide 24 (22-30) mmol/L Anion Gap 6 mmol/L BUN 12 (7-17) mg/dL Creatinine 0.81 (0.52-1.04) mg/dL Est GFR (CKD-EPI)AfAm 81 (>60 ml/min/1.73 sqM) Est GFR (CKD-EPI)NonAf 70 (>60 ml/min/1.73 sqM) Glucose 93 (74-99) mg/dL Plasma Lactic Acid Luciano 1.6 (0.7-2.0) mmol/L Calcium 7.4 L (8.4-10.2) mg/dL Total Bilirubin 2.1 H (0.2-1.3) mg/dL AST 36 (14-36) U/L ALT 20 (4-34) U/L Alkaline Phosphatase 71 (38-126) U/L Total Protein 5.8 L (6.3-8.2) g/dL Albumin 2.9 L (3.5-5.0) g/dL Urine Color Urine Appearance (Clear) Urine pH (5.0-8.0) Ur Specific [place] (1.001-1.035) Urine Protein (Negative) Urine Glucose (UA) (Negative) Urine Ketones (Negative) Urine Blood (Negative) Urine Nitrite (Negative) Urine Bilirubin (Negative) Urine Urobilinogen (<2.0) mg/dL Ur Leukocyte Esterase (Negative) Urine RBC (0-5) /hpf Urine WBC (0-5) /hpf Hyaline Casts (0-2) /lpf Urine Mucus (None) /hpf Influenza Type A (PCR) Not Detected (Not Detectd) Influenza Type B (PCR) Not Detected (Not Detectd) RSV (PCR) Not Detected (Not Detectd) SARS-CoV-2 (PCR) Not Detected (Not Detectd) Disposition Clinical Impression: Urinary tract infection Disposition: ADMITTED IP TO THIS HOSP Referrals: Samantha Hanson DO [Primary Care Provider] - 1-2 days Time of Disposition: 21:07
[2022-06-19 19:23] LABS: Anisocytosis Slight; Basophils % (A) 0 %; Eosinophils # (A) 0.1 k/uL (0-0.7); Eosinophils % (A) 1 %; HCT 29.8 % (34.0-46.0); HGB 9.4 gm/dL (11.4-16.0); Hypochromasia Moderate; Lymphocytes # (A) 0.9 k/uL (1.0-4.8); Lymphocytes % (A) 8 %; MCH 28.5 pg (25.0-35.0); MCHC 31.6 g/dL (31.0-37.0); MCV 90.1 fL (80.0-100.0); Mean Platelet Volume 7.8; Monocytes # (A) 1.2 k/uL (0-1.0); Monocytes % (A) 10 %; Neutrophils # (A) 9.3 k/uL (1.3-7.7); Neutrophils % (A) 80 %; Poikilocytosis Slight; RBC 3.31 m/uL (3.80-5.40); RDW 16.2 % (11.5-15.5); WBC 11.6 k/uL (3.8-10.6)
[2022-06-19 19:31] LABS: Platelet Count 170 k/uL (150-450)
[2022-06-19 19:37] LABS: Albumin 2.9 g/dL (3.5-5.0); Calcium 7.4 mg/dL (8.4-10.2); Potassium 3.7 mmol/L (3.5-5.1); Total Bilirubin 2.1 mg/dL (0.2-1.3); Total Protein 5.8 g/dL (6.3-8.2)
[2022-06-19 19:43] LABS: INR 1.4 (<1.2); Partial Thromboplastin Time 31.4 sec (22.0-30.0); Prothrombin Time 13.8 sec (9.0-12.0)
--- NOTE | 2022-06-19 19:49 | XR ---
EXAMINATION TYPE: XR chest 2V DATE OF EXAM: 06/19/2022 COMPARISON: 06/12/2022 HISTORY: Fever TECHNIQUE: 2 views FINDINGS: There is diffuse pulmonary interstitial edema. Heart size is fairly normal. There are no hi lar masses. There are chest leads. IMPRESSION: Diffuse interstitial pneumonia which is the same or sl ightly worse than last exam. Heart size is normal and no pleural fluid seen to suggest heart failure.
[2022-06-19 20:35] LABS: Appearance,Urine Cloudy (Clear); Bilirubin,Urine Negative (Negative); Blood,Urine Large (Negative); Color,Urine Dark Brown; Glucose,Urine (UA) Negative (Negative); Hyaline Casts,Urine 86 /lpf (0-2); Ketones,Urine Negative (Negative); Leukocyte Esterase,Urine Large (Negative); Mucus,Urine Occasional /hpf; Nitrite,Urine Negative (Negative); PH, Urine 5.5 (5.0-8.0); Protein,Urine 1+ (Negative); RBC,Urine >182 /hpf (0-5); Specific Gravity,Urine 1.014 (1.001-1.035); WBC,Urine >182 /hpf (0-5)
[2022-06-19] MEDS ORDERED: cefTRIAXone IN SWFI 1,000 MG/10 ML SYRINGE IVP STA (20:50)
[2022-06-19] MEDS ORDERED: SODIUM CHLORIDE 0.9% 1,000 ML IV ONE (21:10)
[2022-06-20] MEDS: levETIRAcetam 500 MG TAB PO SCH ×3 (00:42→20:43)
--- NOTE | 2022-06-20 05:07 | P.HPIM ---
History of Present Illness H&P Date: 06/20/22 The patient is a 77-year-old female with a PMH of multiple sclerosis, hypothyroidism, and A. fib, who presents to the emergency room with complaints of not feeling well. Of note, the patient was recently admitted to [facility] from 06/12-06/18 for altered mental status. The patient was treated for UTI and was discharged to the longterm facility for debility. The patient was discharged on Levaquin 250 mg by mouth for 6 days. Urine culture had grown Providencia Stuartii sensitive to Levaquin. Patient states that soon after returning to the nursing facility, she felt ill and had generalized fatigue. She reports being told that she had a UTI but denied urinary compla ints. She also denied fevers, chills, or cough. Denied chest discomfort or shortness of breath. No nausea or vomiting. The ED documentation was reviewed in detail. The patient was initially admitted under [facility]'s service and was subsequently transferred to us as the patient was discharged a day prior from our service. Chest x-ray in the emergency room revealed findings consistent with diffuse interstitial pneumonia slightly worse from prior. EKG revealed sinus tachycardia at 107 bpm with a poor baseline. The patient had a T-max of 100.6 in the emergency room with BP 115/57, pulse 109, respiratory rate 18, and SpO2 98% on room air. Laboratory evaluation was remarkable for leukocytosis of 11.6, lactic acid 1.6, UA consistent with UTI. Review of systems: Pertinent positives and negatives as discussed in HPI, a complete review of systems was performed and all other systems are negative. Physical examination: Vital signs reviewed General: non toxic, no distress, appears at stated age, obese Derm: no unusual rashes/lesions, warm Head: atraumatic, normocephalic, symmetric Eyes: EOMI, no lid lag, anicteric sclera, pupils equal round reactive to light ENT: Nose and ears atraumatic Neck: No cervical lymphadenopathy, trachea midline, supple Mouth: no lip lesion, mucus membranes moist Cardiovascular: S1S2 reg, no murmur, positive dorsalis pedis pulse bilateral, 1+ ria LE edema Lungs: Scattered coarse breath sounds, no accessory muscle use Abdominal: soft, nontender to palpation, no guarding Ext: muscle strength 5 out of 5 of ria UEs, strength 2/5 of ria LEs, no gross muscle atrophy, no contractures, Neuro: CN II-XI grossly intact, no gross focal neuro deficits Psych: Alert, oriented, appropriate affect Assessment: UTI Chronic conditions: Hypothyroidism, A. fib, multiple sclerosis Imaging: Chest x-ray in the emergency room revealed findings consistent with diffuse interstitial pneumonia slightly worse from prior. EKG revealed sinus tachycardia at 107 bpm with a poor baseline. Data Review: The patient had a T-max of 100.6 in the emergency room with BP 115/57, pulse 109, respiratory rate 18, and SpO2 98% on room air. Laboratory evaluation was remarkable for leukocytosis of 11.6, lactic acid 1.6, UA consistent with UTI. Plan: Continue ceftriaxone 2 g every 24 hours Continue with IV fluids 75 mL per hour. Hold home Spironolactone dose for now. Follow-up repeat blood and urine cultures DVT prophylaxis: Heparin subcu The patient is admitted with an anticipated greater than 2 midnight stay for evaluation of UTI CODE STATUS: Full Code Discussed with: Patient Anticipated discharge place: Home Past Medical History Past Medical History: Atrial Fibrillation, GERD/Reflux, Hypertension, Thyroid Disorder Additional Past Medical History / Comment(s): MS History of Any Multi-Drug Resistant Organisms: MRSA Date of last positivie culture/infection: 2009 MDRO Source:: left knee Past Surgical History: Unable to Obtain, Joint Replacement Past Anesthesia/Blood Transfusion Reactions: No Reported Reaction Past Psychological History: Depression Smoking Status: Never smoker Past Alcohol Use History: None Reported Past Drug Use History: None Reported - Past Family History Mother Family Medical History: COPD Medications and Allergies Home Medications Medication Instructions Recorded Confirmed Type Aspirin 81 mg PO DAILY 06/12/22 06/19/22 History Clopidogrel [Plavix] 75 mg PO DAILY 06/12/22 06/19/22 History Cranberry Fruit [Cranberry] 465 mg PO BID 06/12/22 06/19/22 History Dextran/Hypromellose/Glycerin 2 drops BOTH EYES BID@0800,1600 06/12/22 06/19/22 History [Genteal Tears 0.1%-0.2%-0.3%] Ferrous Sulfate [Iron (65 MG 325 mg PO DAILY@1800 06/12/22 06/19/22 History Elemental)] Furosemide [Lasix] 40 mg PO BID@0800,1600 06/12/22 06/19/22 History Lactobacillus Acidophilus 1 cap PO DAILY 06/12/22 06/19/22 History [Acidophilus] Levothyroxine Sodium [Synthroid] 137 mcg PO DAILY@0600 06/12/22 06/19/22 History Loratadine [Claritin] 10 mg PO DAILY 06/12/22 06/19/22 History Magnesium Chloride- Calcium 1 tab PO DAILY 06/12/22 06/19/22 History 64-106mg Melatonin 3 mg PO HS 06/12/22 06/19/22 History Mirabegron [Myrbetriq] 50 mg PO DAILY 06/12/22 06/19/22 History Multivitamins, Thera [Multivitamin 1 tab PO DAILY 06/12/22 06/19/22 History (formulary)] Pantoprazole [Protonix] 40 mg PO DAILY 06/12/22 06/19/22 History Potassium Chloride ER [K-Dur 20] 20 meq PO BID-W/MEALS 06/12/22 06/19/22 History Spironolactone 25 mg PO DAILY 06/12/22 06/19/22 History bisacodyL [Dulcolax] 10 mg PO HS 06/12/22 06/19/22 History Levofloxacin [Levaquin] 250 mg PO DAILY 6 Days #6 tablet 06/17/22 06/19/22 Rx Calcium Carbonate [Calcium] 600 mg PO DAILY 06/19/22 06/19/22 History levETIRAcetam [Keppra] 500 mg PO BID 06/19/22 06/19/22 History Allergies Allergy/AdvReac Type Severity Reaction Status Date / Time No Known Allergies Allergy Verified 06/19/22 20:03 Physical Exam Vitals: Vital Signs Temp Pulse Pulse Resp BP BP Pulse Ox 06/20/22 02:10 97.7 F 96 17 113/65 99 06/20/22 00:40 95 18 06/20/22 00:35 97.7 F 95 18 95/57 99 06/19/22 22:46 98.9 F 90 16 110/46 97 06/19/22 20:32 98.5 F 92 17 106/44 96 06/19/22 19:36 100.0 F H 100 18 119/56 96 06/19/22 17:28 18 06/19/22 17:24 100.6 F H 109 H 18 115/57 98 Intake and Output 06/19/22 06/19/22 06/20/22 14:59 22:59 06:59 Other: Voiding Method External Catheter Weight 95.254 kg 95.254 kg Results CBC & Chem 7: 06/19/22 18:07 06/19/22 18:07 Labs: Abnormal Lab Results - Last 24 Hours (Table) 06/19/22 06/19/22 06/19/22 Range/Units 18:07 18:07 18:07 WBC 11.6 H (3.8-10.6) k/uL RBC 3.31 L (3.80-5.40) m/uL Hgb 9.4 L (11.4-16.0) gm/dL Hct 29.8 L (34.0-46.0) % RDW 16.2 H (11.5-15.5) % Neutrophils # 9.3 H (1.3-7.7) k/uL Lymphocytes # 0.9 L (1.0-4.8) k/uL Monocytes # 1.2 H (0-1.0) k/uL PT 13.8 H (9.0-12.0) sec INR 1.4 H (<1.2) APTT 31.4 H (22.0-30.0) sec Sodium (137-145) mmol/L Calcium (8.4-10.2) mg/dL Total Bilirubin (0.2-1.3) mg/dL Total Protein (6.3-8.2) g/dL Albumin (3.5-5.0) g/dL Urine Appearance Cloudy H (Clear) Urine Protein 1+ H (Negative) Urine Blood Large H (Negative) Ur Leukocyte Esterase Large H (Negative) Urine RBC >182 H (0-5) /hpf Urine WBC >182 H (0-5) /hpf Hyaline Casts 86 H (0-2) /lpf Urine Mucus Occasional H (None) /hpf 06/19/22 Range/Units 18:07 WBC (3.8-10.6) k/uL RBC (3.80-5.40) m/uL Hgb (11.4-16.0) gm/dL Hct (34.0-46.0) % RDW (11.5-15.5) % Neutrophils # (1.3-7.7) k/uL Lymphocytes # (1.0-4.8) k/uL Monocytes # (0-1.0) k/uL PT (9.0-12.0) sec INR (<1.2) APTT (22.0-30.0) sec Sodium 134 L (137-145) mmol/L Calcium 7.4 L (8.4-10.2) mg/dL Total Bilirubin 2.1 H (0.2-1.3) mg/dL Total Protein 5.8 L (6.3-8.2) g/dL Albumin 2.9 L (3.5-5.0) g/dL Urine Appearance (Clear) Urine Protein (Negative) Urine Blood (Negative) Ur Leukocyte Esterase (Negative) Urine RBC (0-5) /hpf Urine WBC (0-5) /hpf Hyaline Casts (0-2) /lpf Urine Mucus (None) /hpf Microbiology - Last 24 Hours (Table) 06/19/22 18:07 Urine Culture - Preliminary Urine,Voided Thrombosis Risk Factor Assmnt - Choose All That Apply Each Factor Represents 1 point: Medical pt on bed rest, Swollen legs (current) Each Risk Factor Represents 2 Points: Patient confined to bed Each Risk Factor Represents 3 Points: Age 75 years or older Thrombosis Risk Factor Assessment Total Risk Factor Score: 7 Thrombosis Risk Factor Assessment Level: High Risk
[2022-06-20] MEDS: LEVOTHYROXINE 137 MCG TAB PO SCH (05:41)
[2022-06-20] MEDS: HEPARIN SODIUM,PORCINE/PF 5,000 UNIT/0.5 ML SYRINGE SQ SCH ×2 (07:55→16:28)
[2022-06-20] MEDS: ASPIRIN 81 MG PO SCH (07:55)
[2022-06-20] MEDS: CALCIUM CARBONATE 500 MG CHEWABLE PO SCH (07:55)
[2022-06-20] MEDS: CLOPIDOGREL 75 MG TAB PO SCH (07:55)
[2022-06-20] MEDS: SPIRONOLACTONE 25 MG TAB PO SCH (07:56)
--- NOTE | 2022-06-20 15:26 | P.PN ---
Subjective Progress Note Date: 06/20/22 The patient is a 77-year-old female with a PMH of multiple sclerosis, hypothyroidism, and A. fib, who presents to the emergency room with complaints of not feeling well. Of note, the patient was recently admitted to [facility] from 06/12-06/18 for altered mental status. The patient was treated for UTI and [facility]. The patient was discharged on Levaquin 250 mg by mouth for 6 days. Urine culture had grown Providencia Stuartii sensitive to Levaquin. Patient states that soon after returning to the nursing facility, she felt ill and had generalized fatigue. Chest x-ray in the emergency room revealed findings consistent with diffuse interstitial pneumonia slightly worse from prior. EKG revealed sinus tachycardia at 107 bpm with a poor baseline. The patient had a T-max of 100.6 in the emergency room with BP 115/57, pulse 109, respiratory rate 18, and SpO2 98% on room air. Laboratory evaluation was remarkable for leukocytosis of 11.6, lactic acid 1.6, UA consistent with UTI. Patient was admitted for treatment of UTI. Patient was seen and examined this morning. She states that she does not feel well. She has no specific complaints. States that her breathing is fair. She denies any chest pain or palpitations. No nausea or vomiting. No fever or chills. General: non toxic, no distress, appears at stated age, obese Derm: no unusual rashes/lesions, warm, ecchymosis over bilateral upper extremities Head: atraumatic, normocephalic, symmetric Eyes: EOMI, no lid lag, anicteric sclera ENT: Nose and ears atraumatic Neck: No cervical lymphadenopathy, trachea midline, supple Mouth: no lip lesion, mucus membranes moist Cardiovascular: S1S2 reg, no murmur, positive dorsalis pedis pulse bilateral, 1+ ria LE edema Lungs: Scattered coarse breath sounds, no accessory muscle use Abdominal: soft, nontender to palpation, no guarding, + wagner catheter Ext: no gross muscle atrophy, no contractures, Neuro: no gross focal neuro deficits Psych: Alert, oriented, appropriate affect #Sepsis related to UTI #Gram-positive bacteremia #Diastolic CHF exacerbation Chronic conditions: 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 I have reviewed the following direct sales consultant notes: None. I have reviewed the results of the following tests: Echocardiogram from 06/13 shows EF 55-60% with increased diastolic diameter. I have ordered the following tests: Repeat blood cultures. Repeat CXR tomorrow morning. Echocardiogram. I have discussed the care of this patient with the following independent historian: None. I have independently interpreted the following test below: None. I have discussed the management of this patient with the following physician: None. This patient has a high risk of morbidity due to the following reasons: Patient has an acute diagnosis of sepsis related to UTI along with gram-positive bacteremia that poses a threat to life or bodily function. Patient will be continued on Rocephin 2 g IV daily. Follow final blood and urine culture. Repeat blood cultures tomorrow. Telemetry monitoring. Consult infectious disea se. She also appears to be fluid overloaded supported by pulmonary edema chest. I will start Lasix 40 mg IV daily. Repeat echocardiogram has been ordered. Strict intake and output along with daily weights. Objective - Vital Signs Vital signs: Vital Signs Temp 98.8 F 06/20/22 13:20 Pulse 118 H 06/20/22 13:20 Resp 20 06/20/22 13:20 BP 118/68 06/20/22 13:20 Pulse Ox 99 06/20/22 13:20 FiO2 Intake & Output 06/19/22 06/20/22 06/20/22 18:59 06:59 18:59 Intake Total 236 Balance 236 Weight 95.254 kg 95.254 kg Intake: Oral 236 Other: Voiding Method External Catheter External Catheter # Voids 0 - Labs CBC & Chem 7: 06/19/22 18:07 06/19/22 18:07 Labs: Abnormal Lab Results - Last 24 Hours (Table) 06/19/22 06/19/22 06/19/22 Range/Units 18:07 18:07 18:07 WBC 11.6 H (3.8-10.6) k/uL RBC 3.31 L (3.80-5.40) m/uL Hgb 9.4 L (11.4-16.0) gm/dL Hct 29.8 L (34.0-46.0) % RDW 16.2 H (11.5-15.5) % Neutrophils # 9.3 H (1.3-7.7) k/uL Lymphocytes # 0.9 L (1.0-4.8) k/uL Monocytes # 1.2 H (0-1.0) k/uL PT 13.8 H (9.0-12.0) sec INR 1.4 H (<1.2) APTT 31.4 H (22.0-30.0) sec Sodium (137-145) mmol/L Calcium (8.4-10.2) mg/dL Total Bilirubin (0.2-1.3) mg/dL Total Protein (6.3-8.2) g/dL Albumin (3.5-5.0) g/dL Urine Appearance Cloudy H (Clear) Urine Protein 1+ H (Negative) Urine Blood Large H (Negative) Ur Leukocyte Esterase Large H (Negative) Urine RBC >182 H (0-5) /hpf Urine WBC >182 H (0-5) /hpf Hyaline Casts 86 H (0-2) /lpf Urine Mucus Occasional H (None) /hpf 06/19/22 Range/Units 18:07 WBC (3.8-10.6) k/uL RBC (3.80-5.40) m/uL Hgb (11.4-16.0) gm/dL Hct (34.0-46.0) % RDW (11.5-15.5) % Neutrophils # (1.3-7.7) k/uL Lymphocytes # (1.0-4.8) k/uL Monocytes # (0-1.0) k/uL PT (9.0-12.0) sec INR (<1.2) APTT (22.0-30.0) sec Sodium 134 L (137-145) mmol/L Calcium 7.4 L (8.4-10.2) mg/dL Total Bilirubin 2.1 H (0.2-1.3) mg/dL Total Protein 5.8 L (6.3-8.2) g/dL Albumin 2.9 L (3.5-5.0) g/dL Urine Appearance (Clear) Urine Protein (Negative) Urine Blood (Negative) Ur Leukocyte Esterase (Negative) Urine RBC (0-5) /hpf Urine WBC (0-5) /hpf Hyaline Casts (0-2) /lpf Urine Mucus (None) /hpf Microbiology - Last 24 Hours (Table) 06/19/22 19:00 Blood Culture Gram Stain - Preliminary Blood 06/19/22 19:00 Blood Culture - Final Blood 06/19/22 18:45 Blood Culture Gram Stain - Preliminary Blood 06/19/22 18:45 Blood Culture - Final Blood 06/19/22 18:07 Urine Culture - Preliminary Urine,Voided
[2022-06-20] MEDS: FUROSEMIDE 10 MG/ML 4 ML VIAL IV SCH (16:19)
[2022-06-20] MEDS: FERROUS SULFATE 325 MG TAB PO SCH (16:28)
[2022-06-21] MEDS: HEPARIN SODIUM,PORCINE/PF 5,000 UNIT/0.5 ML SYRINGE SQ SCH ×4 (00:43→23:44)
[2022-06-21] MEDS: PANTOPRAZOLE 40 MG TABLET PO SCH (06:46)
[2022-06-21] MEDS: LEVOTHYROXINE 137 MCG TAB PO SCH (06:46)
[2022-06-21 07:33] LABS: HCT 29.7 % (34.0-46.0); HGB 9.3 gm/dL (11.4-16.0); Hypochromasia Marked; MCH 27.8 pg (25.0-35.0); MCHC 31.2 g/dL (31.0-37.0); MCV 88.8 fL (80.0-100.0); Mean Platelet Volume 7.7; Platelet Count 181 k/uL (150-450); Poikilocytosis Slight; RBC 3.34 m/uL (3.80-5.40); RDW 15.9 % (11.5-15.5); WBC 15.4 k/uL (3.8-10.6)
[2022-06-21 08:45] LABS: African American GFR (CKD) 47 (>60 ml/min/1.73 sqM); Anion Gap 8 mmol/L; Blood Urea Nitrogen 19 mg/dL (7-17); Calcium 7.5 mg/dL (8.4-10.2); Carbon Dioxide 24 mmol/L (22-30); Chloride 102 mmol/L (98-107); Glucose 85 mg/dL (74-99); Non-African American GFR(CKD) 41 (>60 ml/min/1.73 sqM); Potassium 3.7 mmol/L (3.5-5.1); Sodium 134 mmol/L (137-145)
[2022-06-21] MEDS: CALCIUM CARBONATE 500 MG CHEWABLE PO SCH (08:51)
[2022-06-21] MEDS: ASPIRIN 81 MG PO SCH (08:51)
[2022-06-21] MEDS: levETIRAcetam 500 MG TAB PO SCH ×2 (08:51→20:35)
[2022-06-21] MEDS: SPIRONOLACTONE 25 MG TAB PO SCH (08:52)
[2022-06-21] MEDS: CLOPIDOGREL 75 MG TAB PO SCH (08:52)
[2022-06-21] MEDS: LORATADINE 10 MG TAB PO SCH (08:52)
[2022-06-21] MEDS: FUROSEMIDE 10 MG/ML 4 ML VIAL IV SCH ×2 (08:53→20:35)
--- NOTE | 2022-06-21 09:03 | XR ---
EXAMINATION TYPE: XR chest 1V portable DATE OF EXAM: 06/21/2022 COMPARISON: 06/19/2022 HISTORY: Shortness of breath TECHNIQUE: Single frontal view of the chest is obtained. FINDINGS: There is no focal air space opacity, pleural effusion, or pneumothorax seen. The cardiac silhouette size is within normal limits. The osseous structures are intact. Coarsened interstitium with subsegmental changes at both lung bases. IMPRESSION: 1. Correlate for chronic interstitial lung disease. Mild superimposed venous congestion or interstiti al pneumonitis in the differential diagnosis and improved relative to exam
[2022-06-21] MEDS: NON FORMULARY DRUG (Mirabegron [Myrbetriq] 50 MG Tab.Er.24h) PO SCH (09:16)
--- NOTE | 2022-06-21 13:20 | P.PN ---
Subjective Progress Note Date: 06/21/22 The patient is a 77-year-old female with a PMH of multiple sclerosis, hypothyroidism, and A. fib, who presents to the emergency room with complaints of not feeling well. Of note, the patient was recently admitted to [facility] from 06/12-06/18 for altered mental status. The patient was treated for UTI and was discharged to the residential facility for debility. The patient was discharged on Levaquin 250 mg by mouth for 6 days. Urine culture had grown Providencia Stuartii sensitive to Levaquin. Patient states that soon after returning to the nursing facility, she felt ill and had generalized fatigue. Chest x-ray in the emergency room revealed findings consistent with diffuse interstitial pneumonia slightly worse from prior. EKG revealed sinus tachycardia at 107 bpm with a poor baseline. The patient had a T-max of 100.6 in the emergency room with BP 115/57, pulse 109, respiratory rate 18, and SpO2 98% on room air. Laboratory evaluation was remarkable for leukocytosis of 11.6, lactic acid 1.6, UA consistent with UTI. Patient was admitted for treatment of UTI. Patient was started on Rocephin IV. Her blood culture came back positive for staph epidermidis 2. There is also concerns for volume overload on chest x-ray. She was started on Lasix IV for diuresis. Patient was seen and examined this morning. She states that she does not feel well. She has no specific complaints though. She denies any chest pain or palpitations. No nausea or vomiting. No fever or chills. General: non toxic, no distress, appears at stated age, obese Derm: no unusual rashes/lesions, warm, ecchymosis over bilateral upper extremities Head: atraumatic, normocephalic, symmetric Eyes: EOMI, no lid lag, anicteric sclera ENT: Nose and ears atraumatic Neck: No cervical lymphadenopathy, trachea midline, supple Mouth: no lip lesion, mucus membranes moist Cardiovascular: S1S2 reg, no murmur, 1+ ria LE edema Lungs: Scattered coarse breath sounds, no accessory muscle use Abdominal: soft, nontender to palpation, no guarding, + wagner catheter Ext: no gross muscle atrophy, no contractures, Neuro: no gross focal neuro deficits Psych: Alert, oriented, appropriate affect #Sepsis related to UTI #Gram-positive bacteremia #Acute kidney injury #Diastolic CHF exacerbation Chronic conditions: 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 I have reviewed the following senior research consultant notes: None. I have reviewed the results of the following tests: CBC shows leukocytosis of 15.4 and hemoglobin 9.3. BMP shows sodium 134, BUN of 19, creatinine 1.26 calcium of 7.5. Worsening renal function is likely related to forced diuresis. I have ordered the following tests: Repeat blood cultures pending. Urine culture pending. Echocardiogram pending. BMP ordered to evaluate renal function. CBC ordered to evaluate leukocytosis. I have discussed the care of this patient with the following independent histor remigio: None. I have independently interpreted the following test below: Chest x-ray from today shows pulmonary vascular congestion which is slightly improved from yesterday. I have discussed the management of this patient with the following physician: None. This patient has a high risk of morbidity due to the following reasons: Patient has an acute diagnosis of sepsis related to UTI along with gram-positive bacteremia that poses a threat to life or bodily function. Patient will be continued on Rocephin 2 g IV daily. Her blood cultures are positive for staph epidermidis 2. Her urine culture is pending. Repeat blood cultures pending. Telemetry monitoring. Consult infectious disease. She also appears to be fluid overloaded supported by pulmonary edema chest. Repeat echocardiogram is pending. Her weight has increased from 95 kg on admission 114.5 kg today. She is +36 mL over the past 24 hours. I will increase Lasix to 40 mg IV twice a day. Objective - Vital Signs Vital signs: Vital Signs Temp 99.3 F 06/21/22 07:28 Pulse 115 H 06/21/22 07:28 Resp 16 06/21/22 07:28 BP 113/62 06/21/22 07:28 Pulse Ox 97 06/21/22 08:19 FiO2 Intake & Output 06/20/22 06/21/22 06/21/22 18:59 06:59 18:59 Intake Total 236 500 Output Total 400 300 Balance -164 200 Weight 114.5 kg Intake: Oral 236 500 Output: Urine 400 300 Other: Voiding Method External Catheter External Catheter Diaper Incontinent # Voids 3 # Bowel Movements 2 3 - Labs CBC & Chem 7: 06/21/22 06:28 06/21/22 06:28 Labs: Abnormal Lab Results - Last 24 Hours (Table) 06/21/22 06/21/22 Range/Units 06:28 06:28 WBC 15.4 H (3.8-10.6) k/uL RBC 3.34 L (3.80-5.40) m/uL Hgb 9.3 L (11.4-16.0) gm/dL Hct 29.7 L (34.0-46.0) % RDW 15.9 H (11.5-15.5) % Sodium 134 L (137-145) mmol/L BUN 19 H (7-17) mg/dL Creatinine 1.26 H (0.52-1.04) mg/dL Calcium 7.5 L (8.4-10.2) mg/dL Microbiology - Last 24 Hours (Table) 06/19/22 19:00 Blood Culture Gram Stain - Preliminary Blood Blood Culture - Preliminary Coagulase Negative Staph 06/19/22 18:45 Blood Culture Gram Stain - Preliminary Blood Blood Culture - Preliminary Staphylococcus epidermidis 06/19/22 19:00 Blood Culture - Final Blood 06/19/22 18:45 Blood Culture - Final Blood
--- NOTE | 2022-06-21 17:50 | CA ---
Transthoracic Echo Report Name: Ely Castro Age: 77 Gender: F : 1945 Exam Date: 06/21/2022 08:27 Exam Location: [place] [facility] Ht (in): 63 Wt (lb): 252 Ordering Physician: Brody Paiz MD Attending/Referring Phys: Sports Physiologist Procedure CPT: Indications: G+ bacteremia Cardiac Hx: Technical Quality: Fair Contrast 1: Total Dose (mL): Contrast 2: Total Dose (mL): MEASUREMENTS (Male / Female) Normal Values 2D ECHO LV Diastolic Diameter PLAX 4.8 cm 4.2 - 5.9 / 3.9 - 5.3 cm LV Systolic Diameter PLAX 3.1 cm LV Fractional Shortening PLAX 35.8 % IVS Diastolic Thickness 1.2 cm 0.6 - 1.0 / 0.6 - 0.9 cm IVS Systolic Thickness 1.2 cm LVPW Diastolic Thickness 1.2 cm 0.6 - 1.0 / 0.6 - 0.9 cm LVPW Systolic Thickness 1.2 cm LV Relative Wall Thickness 0.5 RV Internal Dim ED PLAX 3.3 cm LVOT Diameter 2.0 cm LA Systolic Diameter LX 3.3 cm 3.0 - 4.0 / 2.7 - 3.8 cm LV Diastolic Volume MOD BP 107.9 cm??? 67 - 155 / 56 - 104 cm??? LV Systolic Volume MOD BP 37.6 cm??? 22 - 58 / 19 - 49 cm??? LV Ejection Fraction MOD BP 65.2 % >= 55 % LV Stroke Volume MOD BP 70.3 cm??? LV Diastolic Volume MOD 4C 104.1 cm??? LV Systolic Volume MOD 4C 30.6 cm??? LV Ejection Fraction MOD 4C 70.6 % LV Stroke Volume MOD 4C 73.5 cm??? LV Diastolic Length 4C 7.7 cm LV Systolic Length 4C 6.3 cm LV Diastolic Volume MOD 2C 110.7 cm??? LV Systolic Volume MOD 2C 44.8 cm??? LV Ejection Fraction MOD 2C 59.6 % LV Stroke Volume MOD 2C 66.0 cm??? LV Diastolic Length 2C 7.6 cm LV Systolic Length 2C 6.5 cm Ascending Aorta Diameter 2.7 cm M-MODE Aortic Root Diameter MM 3.1 cm LA Systolic Diameter MM 4.5 cm LA Ao Ratio MM 1.5 AV Cusp Separation MM 1.8 cm DOPPLER AV Peak Velocity 202.0 cm/s AV Peak Gradient 16.3 mmHg LVOT Peak Velocity 136.1 cm/s LVOT Peak Gradient 7.4 mmHg AV Area Cont Eq pk 2.0 cm??? MV Deceleration Sullivan 774.9 cm/s??? MR Peak Velocity 368.1 cm/s MR Peak Gradient 54.2 mmHg Mitral E Point Velocity 105.8 cm/s Mitral A Point Velocity 95.8 cm/s Mitral E to A Ratio 1.1 MV Deceleration Time 136.5 ms MV E' Velocity 9.3 cm/s Mitral E to MV E' Ratio 11.3 TR Peak Velocity 311.8 cm/s TR Peak Gradient 38.9 mmHg Right Ventricular Systolic Press 48.9 mmHg PV Peak Velocity 92.8 cm/s PV Peak Gradient 3.4 mmHg FINDINGS Left Ventricle Left ventricular ejection fraction is estimated at 60-65 %. Mild concentric left ventricular hypertrophy. Grade 2 diastolic dysfunction. Increased basal systolic function. Hyperdynamic left ventricular systolic function. Right Ventricle Normal right ventricular size and function. Hyperdynamic right ventricular global systolic function. RVSP-49 mm Hg. Right Atrium Mild right atrial dilatation. Left Atrium Mild left atrial dilatation. Mitral Valve Mitral valve thickened. [id number] mitral regurgitation. Aortic Valve Trileaflet aortic valve. Diffuse thickening (sclerosis) of the aortic valve cusps without reduced excursion. Borderline aortic stenosis (AV max- 2 m/s) Tricuspid Valve [id number] tricuspid regurgitation. Pulmonic Valve Pulmonic valve not well visualized. Pericardium Normal pericardium. Small pericardial effusion. Aorta Normal size aortic root and proximal ascending aorta. CONCLUSIONS Left ventricular ejection fraction 60-65% Mild increased left ventricular wall thickness RVSP 49 Mild to moderate mitral regurgitation Mild to moderate tricuspid regurgitation Small pericardial effusion without any tamponade Previewed by: Dr. Pravin Rondon DO (Electronically Signed) Final Date: 21 June 2022 17:50
[2022-06-21] MEDS: FERROUS SULFATE 325 MG TAB PO SCH (20:35)
--- NOTE | 2022-06-21 20:51 | P.CONS ---
History of Present Illness - Reason for Consult Consult date: 06/21/22 Gram-positive bacteremia Requesting physician: Brody Paiz - Chief Complaint Not feeling well x days - History of Present Illness Patient is a 77-year-old female presenting [facility] the [facility] for an episode of not feeling well patient did have a nonspecific symptoms however no chest pain shortness of breath or any cough no vomiting or any diarrhea was reported on presentation to the hospital patient did have a low-grade fever 100.6 F patient fever has subsequently resolved, patient did have mild tachycardia but no hypoxemia or need for supplemental oxygen did have white count of 11.6 which has raised up to 15.4 today BUN and creatinine are mildly elevated patient did have a positive UA with large leukocyte esterase more than 182 WBC influenza RSV and COVID testing was negative patient was started on Rocephin blood cultures came back positive with a gram-positive cocci for which vancomycin was added infectious disease was consulted for further management of antibiotic therapy patient at time of evaluation does not have adequate historian however as mentioned earlier he is breathing comfortably room air denies any chest pain or shortness of breath no cough no vomiting no diarrhea reported by nursing staff and denies having any abdominal pain patient currently do not have any open wound except some skin maceration on the right hand and right knee area but no clear history of any fall redness or any drainage Review of Systems Positive point has been mentioned in the HPI rest of the systems are negative Past Medical History Past Medical History: Atrial Fibrillation, GERD/Reflux, Hypertension, Thyroid Disorder Additional Past Medical History / Comment(s): MS History of Any Multi-Drug Resistant Organisms: MRSA Year Discovered:: 2009 MDRO Source:: left knee Past Surgical History: Unable to Obtain, Joint Replacement Past Anesthesia/Blood Transfusion Reactions: No Reported Reaction Past Psychological History: Depression Smoking Status: Never smoker Past Alcohol Use History: None Reported Past Drug Use History: None Reported - Past Family History Mother Family Medical History: COPD Medications and Allergies Home Medications Medication Instructions Recorded Confirmed Type Aspirin 81 mg PO DAILY 06/12/22 06/19/22 History Clopidogrel [Plavix] 75 mg PO DAILY 06/12/22 06/19/22 History Cranberry Fruit [Cranberry] 465 mg PO BID 06/12/22 06/19/22 History Dextran/Hypromellose/Glycerin 2 drops BOTH EYES BID@0800,1600 06/12/22 06/19/22 History [Genteal Tears 0.1%-0.2%-0.3%] Ferrous Sulfate [Iron (65 MG 325 mg PO DAILY@1800 06/12/22 06/19/22 History Elemental)] Furosemide [Lasix] 40 mg PO BID@0800,1600 06/12/22 06/19/22 History Lactobacillus Acidophilus 1 cap PO DAILY 06/12/22 06/19/22 History [Acidophilus] Levothyroxine Sodium [Synthroid] 137 mcg PO DAILY@0600 06/12/22 06/19/22 History Loratadine [Claritin] 10 mg PO DAILY 06/12/22 06/19/22 History Magnesium Chloride- Calcium 1 tab PO DAILY 06/12/22 06/19/22 History 64-106mg Melatonin 3 mg PO HS 06/12/22 06/19/22 History Mirabegron [Myrbetriq] 50 mg PO DAILY 06/12/22 06/19/22 History Multivitamins, Thera [Multivitamin 1 tab PO DAILY 06/12/22 06/19/22 History (formulary)] Pantoprazole [Protonix] 40 mg PO DAILY 06/12/22 06/19/22 History Potassium Chloride ER [K-Dur 20] 20 meq PO BID-W/MEALS 06/12/22 06/19/22 History Spironolactone 25 mg PO DAILY 06/12/22 06/19/22 History bisacodyL [Dulcolax] 10 mg PO HS 06/12/22 06/19/22 History Calcium Carbonate [Calcium] 600 mg PO DAILY 06/19/22 06/19/22 History levETIRAcetam [Keppra] 500 mg PO BID 06/19/22 06/19/22 History Amoxic-Pot Clav 875-125Mg 1 tab PO BID 7 Days #14 tab 06/24/22 Rx [Augmentin 875-125] Allergies Allergy/AdvReac Type Severity Reaction Status Date / Time No Known Allergies Allergy Verified 06/19/22 20:03 Physical Exam Vitals: Vital Signs Temp Pulse Resp BP Pulse Ox 06/21/22 08:19 97 06/21/22 07:28 99.3 F 115 H 16 113/62 06/21/22 01:55 97.9 F 68 17 130/69 95 06/20/22 21:08 119 H 20 06/20/22 21:03 98.9 F 119 H 20 115/63 98 06/20/22 19:23 98.2 F 87 17 158/75 97 06/20/22 13:20 98.8 F 118 H 20 118/68 99 Intake and Output 06/20/22 06/21/22 06/21/22 22:59 06:59 14:59 Intake Total 500 Output Total 700 Balance -700 500 Intake: Oral 500 Output: Urine 700 Other: Voiding Method External Catheter # Voids 3 # Bowel Movements 2 3 Weight 114.5 kg GENERAL DESCRIPTION: Elderly female lying in bed, no distress. No tachypnea or accessory muscle of respiration use. HEENT: Shows Pallor , no scleral icterus. Oral mucous membrane is dry. NECK: Trachea central, no thyromegaly. LUNGS: Unlabored breathing. Decreased breath sound at the base. HEART: S1, S2, regular rate and rhythm. No loud murmur ABDOMEN: Soft, no tenderness , EXTREMITIES: No edema of feet. SKIN: No rash, no masses palpable. NEUROLOGICAL: The patient is awake, alert, oriented x3, mood and affect normal. Results CBC & Chem 7: 06/24/22 06:28 06/24/22 06:28 Labs: Abnormal Lab Results - Last 24 Hours (Table) 06/21/22 06/21/22 Range/Units 06:28 06:28 WBC 15.4 H (3.8-10.6) k/uL RBC 3.34 L (3.80-5.40) m/uL Hgb 9.3 L (11.4-16.0) gm/dL Hct 29.7 L (34.0-46.0) % RDW 15.9 H (11.5-15.5) % Sodium 134 L (137-145) mmol/L BUN 19 H (7-17) mg/dL Creatinine 1.26 H (0.52-1.04) mg/dL Calcium 7.5 L (8.4-10.2) mg/dL Microbiology - Last 24 Hours (Table) 06/19/22 18:45 Blood Culture Gram Stain - Preliminary Blood Blood Culture - Preliminary Staphylococcus epidermidis 06/19/22 19:00 Blood Culture Gram Stain - Preliminary Blood 06/19/22 19:00 Blood Culture - Final Blood 06/19/22 18:45 Blood Culture - Final Blood Assessment and Plan (1) Positive blood culture Status: Acute Code(s): R78.81 - BACTEREMIA SNOMED Code(s): 392360346 (2) Urinary tract infection Status: Acute Code(s): N39.0 - URINARY TRACT INFECTION, SITE NOT SPECIFIED SNOMED Code(s): 85838072 Plan: 1patient with a positive blood pressure with the gram-positive cocci has been finalized as staph epi COVID is negative staph likely skin contamination as the patient has no clinical disease to go along with it vancomycin has been discontinued, blood cultures will be repeated to make sure evidence of any persistent bacteremia which may be of any significance. 2patient did have a symptoms of weakness vague urinary symptoms positive UA likely secondary to urinary tract infection from enteric gram-negative pathogen with urine cultures currently pending 3obtain ultrasound of the kidney bladder to make sure no evidence of any structural abnormality We will follow on clinical condition and cultures to further adjust medication if needed Thank you for this consultation we will follow the patient along with you Time with Patient: Greater than 30
[2022-06-22] MEDS: LEVOTHYROXINE 137 MCG TAB PO SCH (06:10)
[2022-06-22] MEDS: PANTOPRAZOLE 40 MG TABLET PO SCH (06:10)
[2022-06-22 06:37] LABS: HCT 26.2 % (34.0-46.0); HGB 8.4 gm/dL (11.4-16.0); Hypochromasia Marked; MCH 28.3 pg (25.0-35.0); MCV 88.5 fL (80.0-100.0); Mean Platelet Volume 7.7; Platelet Count 162 k/uL (150-450); Poikilocytosis Slight; RBC 2.97 m/uL (3.80-5.40); RDW 15.9 % (11.5-15.5); WBC 12.2 k/uL (3.8-10.6)
[2022-06-22 07:05] LABS: African American GFR (CKD) 55 (>60 ml/min/1.73 sqM); Anion Gap 8 mmol/L; Blood Urea Nitrogen 21 mg/dL (7-17); Calcium 7.2 mg/dL (8.4-10.2); Carbon Dioxide 22 mmol/L (22-30); Chloride 100 mmol/L (98-107); Glucose 84 mg/dL (74-99); Non-African American GFR(CKD) 48 (>60 ml/min/1.73 sqM); Potassium 3.2 mmol/L (3.5-5.1); Sodium 130 mmol/L (137-145)
[2022-06-22] MEDS: CALCIUM CARBONATE 500 MG CHEWABLE PO SCH (09:15)
[2022-06-22] MEDS: ASPIRIN 81 MG PO SCH (09:15)
[2022-06-22] MEDS: LORATADINE 10 MG TAB PO SCH (09:15)
[2022-06-22] MEDS: NON FORMULARY DRUG (Mirabegron [Myrbetriq] 50 MG Tab.Er.24h) PO SCH (09:16)
[2022-06-22] MEDS: CLOPIDOGREL 75 MG TAB PO SCH (09:16)
[2022-06-22] MEDS: HEPARIN SODIUM,PORCINE/PF 5,000 UNIT/0.5 ML SYRINGE SQ SCH ×3 (09:16→23:28)
[2022-06-22] MEDS: FUROSEMIDE 10 MG/ML 4 ML VIAL IV SCH ×2 (09:16→20:26)
[2022-06-22] MEDS: levETIRAcetam 500 MG TAB PO SCH ×2 (09:16→20:27)
--- NOTE | 2022-06-22 09:20 | US ---
EXAMINATION TYPE: US kidneys/renal and bladder DATE OF EXAM: 06/22/2022 COMPARISON: CT June 12, 2022 CLINICAL HISTORY: uti and bacteremia. UTI EXAM MEASUREMENTS: Right Kidney: 10.6 x 5.1 x 6.2 cm Left Kidney: 9.0 x 4.9 x 5.0 cm Right Kidney: Staghorn calculus mid portion as visualized on recent CT/ No evidence of hydro, lower pole gassed out Left Kidney: No evidence of hydro, lower pole gassed out Bladder: Possible overly distended bladder, pt immobile, obese and unable to void at time of exam Bilateral Jets seen: No Incidental findings of enlarged spleen, and mild ascites Large central staghorn type calculus correlates with recent CT. When scanning left kidney adjacent sp lenomegaly is redemonstrated. No left-sided hydronephrosis. Mild to moderately distended bladder on c urrent study. IMPRESSION: Large staghorn type calculus right kidney redemonstrated. No left-sided hydronephrosis.
[2022-06-22] MEDS: POTASSIUM CHLORIDE 10 MEQ in WATER FOR INJECTION 1 100ML.BAG IVPB SCH ×3 (11:36→13:53)
[2022-06-22] MEDS ORDERED: POTASSIUM CHLORIDE ER 10 MEQ TAB.ER.PRT PO STA (13:23)
--- NOTE | 2022-06-22 14:51 | P.PN ---
Subjective Progress Note Date: 06/22/22 The patient is a 77-year-old female with a PMH of multiple sclerosis, hypothyroidism, and A. fib, who presents to the emergency room with complaints of not feeling well. Of note, the patient was recently admitted to [facility] from 06/12-06/18 for altered mental status. The patient was treated for UTI and was discharged to the group home facility for debility. The patient was discharged on Levaquin 250 mg by mouth for 6 days. Urine culture had grown Providencia Stuartii sensitive to Levaquin. Patient states that soon after returning to the nursing facility, she felt ill and had generalized fatigue. Chest x-ray in the emergency room revealed findings consistent with diffuse interstitial pneumonia slightly worse from prior. EKG revealed sinus tachycardia at 107 bpm with a poor baseline. The patient had a T-max of 100.6 in the emergency room with BP 115/57, pulse 109, respiratory rate 18, and SpO2 98% on room air. Laboratory evaluation was remarkable for leukocytosis of 11.6, lactic acid 1.6, UA consistent with UTI. Patient was admitted for treatment of UTI. Patient was started on Rocephin IV. Her blood culture came back positive for staph epidermidis 2. There is also concerns for volume overload on chest x-ray. She was started on Lasix IV for diuresis. Her repeat blood culture came back positive for gram-positive cocci. Rocephin was switched to Unasyn. Patient was seen and examined this morning. She states that she feels better than yesterday. She has no specific complaints though. She denies any chest pain or palpitations. No nausea or vomiting. No fever or chills. General: non toxic, no distress, appears at stated age, obese Derm: no unusual rashes/lesions, warm, ecchymosis over bilateral upper extremities Head: atraumatic, normocephalic, symmetric Eyes: EOMI, no lid lag, anicteric sclera ENT: Nose and ears atraumatic Neck: No cervical lymphadenopathy, trachea midline, supple Mouth: no lip lesion, mucus membranes moist Cardiovascular: S1S2 reg, no murmur, 1+ ria LE edema Lungs: Scattered coarse breath sounds, no accessory muscle use Abdominal: soft, nontender to palpation, no guarding, + wagner catheter Ext: no gross muscle atrophy, no contractures, Neuro: no gross focal neuro deficits Psych: Alert, oriented, appropriate affect #Sepsis related to UTI #Gram-positive bacteremia #Acute kidney injury #Hyponatremia #Hypokalemia #Diastolic CHF exacerbation Chronic conditions: 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 I have reviewed the following sap basis consultant notes: None. I have reviewed the results of the following tests: CBC shows leukocytosis of 12.2 and hemoglobin of 8.4. BMP shows sodium 130, potassium 3.2, BUN of 21 and creatinine 1.11 along with calcium of 7.2. Her repeat blood culture is positive for gram-positive cocci. Renal ultrasound shows large staghorn type calculus in the right kidney. Echocardiogram shows EF of 60-65% with grade 2 diastolic dysfunction. Her urine cultures positive for enterococcus faecalis. I have ordered the following tests: Repeat blood cultures ordered for tomorrow. BMP ordered to evaluate renal function. CBC ordered to evaluate leukocytosis. I have discussed the care of this patient with the following independent historian: None. I have independently interpreted the following test below: None. I have discussed the management of this patient with the following physician: None. This patient has a high risk of morbidity due to the following reasons: Patient has an acute diagnosis of sepsis related to UTI along with gram-positive bacteremia that poses a threat to life or bodily function. She was initially started on Rocephin 2 g IV daily. Her blood cultures are positive for staph epidermidis 2. Her urine culture is positive for enterococcus faecalis. Repeat blood cultures came back positive for gram-positive cocci in clusters. Rocephin has been switched to Unasyn 3 g IV every 6 hours. Telemetry monitoring. Infectious disease on board. She also appears to be fluid overloaded supported by pulmonary edema on chest x- ray. Echocardiogram shows grade 2 diastolic dysfunction.. Her weight has increased from 95 kg on admission 116.5 kg today. She is -300 mL over the past 24 hours. I will continue Lasix to 40 mg IV twice a day for 1 more day. Her acute kidney injury, hypokalemia and hyponatremia is likely related to forced diuresis. Potassium will be replaced with 40 mEq potassium chloride by mouth. Objective - Vital Signs Vital signs: Vital Signs Temp 98.3 F 06/22/22 14:00 Pulse 103 H 06/22/22 14:00 Resp 19 06/22/22 14:00 BP 94/66 06/22/22 14:00 Pulse Ox 99 06/22/22 14:00 FiO2 Intake & Output 06/21/22 06/22/22 06/22/22 18:59 06:59 18:59 Intake Total 550 Output Total 250 300 Balance 300 -300 Weight 116.5 kg Intake: Oral 550 Output: Urine 250 300 Other: Voiding Method Diaper Incontinent # Voids 2 # Bowel Movements 1 2 - Labs CBC & Chem 7: 06/22/22 05:37 06/22/22 05:37 Labs: Abnormal Lab Results - Last 24 Hours (Table) 06/22/22 06/22/22 Range/Units 05:37 05:37 WBC 12.2 H (3.8-10.6) k/uL RBC 2.97 L (3.80-5.40) m/uL Hgb 8.4 L (11.4-16.0) gm/dL Hct 26.2 L (34.0-46.0) % RDW 15.9 H (11.5-15.5) % Sodium 130 L (137-145) mmol/L Potassium 3.2 L (3.5-5.1) mmol/L BUN 21 H (7-17) mg/dL Creatinine 1.11 H (0.52-1.04) mg/dL Calcium 7.2 L (8.4-10.2) mg/dL Microbiology - Last 24 Hours (Table) 06/19/22 18:07 Urine Culture - Final Urine,Voided Enterococcus faecalis 06/21/22 06:28 Blood Culture Gram Stain - Preliminary Blood 06/21/22 06:28 Blood Culture - Final Blood 06/19/22 19:00 Blood Culture Gram Stain - Preliminary Blood Blood Culture - Preliminary Coagulase Negative Staph
--- NOTE | 2022-06-22 16:02 | P.PN ---
Subjective Progress Note Date: 06/22/22 Principal diagnosis: Enterococcus urinary tract infection Patient is a 77-year-old female [facility] well patient did have a nonspecific symptoms, patient did have a positive UA and also have a fever, patient did have a positive UA concerning for a urinary tract infection also have a positive blood culture has been finalized with staph epi likely contamination. On today's evaluation that is 06/23/2019 the patient is afebrile the patient is feeling better, the patient is currently breathing comfortably on room air denies any chest pain or shortness of breath or cough no abdominal pain no diarr hea Objective - Vital Signs Vital signs: Vital Signs Temp 98.3 F 06/22/22 14:00 Pulse 103 H 06/22/22 14:00 Resp 19 06/22/22 14:00 BP 94/66 06/22/22 14:00 Pulse Ox 99 06/22/22 14:00 FiO2 Intake & Output 06/21/22 06/22/22 06/22/22 18:59 06:59 18:59 Intake Total 550 Output Total 250 300 500 Balance 300 -300 -500 Weight 116.5 kg Intake: Oral 550 Output: Urine 250 300 500 Other: Voiding Method Diaper Incontinent # Voids 2 # Bowel Movements 1 2 - Exam GENERAL DESCRIPTION: An elderly female lying in bed in no distress RESPIRATORY SYSTEM: Unlabored breathing , decreased breath sounds at bases HEART: S1 S2 regular rate and rhythm , ABDOMEN: Soft , no tenderness EXTREMITIES: No edema feet - Labs CBC & Chem 7: 06/22/22 05:37 06/22/22 05:37 Labs: Abnormal Lab Results - Last 24 Hours (Table) 06/22/22 06/22/22 Range/Units 05:37 05:37 WBC 12.2 H (3.8-10.6) k/uL RBC 2.97 L (3.80-5.40) m/uL Hgb 8.4 L (11.4-16.0) gm/dL Hct 26.2 L (34.0-46.0) % RDW 15.9 H (11.5-15.5) % Sodium 130 L (137-145) mmol/L Potassium 3.2 L (3.5-5.1) mmol/L BUN 21 H (7-17) mg/dL Creatinine 1.11 H (0.52-1.04) mg/dL Calcium 7.2 L (8.4-10.2) mg/dL Microbiology - Last 24 Hours (Table) 06/19/22 18:07 Urine Culture - Final Urine,Voided Enterococcus faecalis 06/21/22 06:28 Blood Culture Gram Stain - Preliminary Blood 06/21/22 06:28 Blood Culture - Final Blood 06/19/22 19:00 Blood Culture Gram Stain - Preliminary Blood Blood Culture - Preliminary Coagulase Negative Staph Assessment and Plan (1) Urinary tract infection Current Visit: Yes Status: Acute Code(s): N39.0 - URINARY TRACT INFECTION, SITE NOT SPECIFIED SNOMED Code(s): 93165553 Plan: 1patient with a positive blood pressure with the gram-positive cocci has been finalized as staph epi COVID is negative staph likely skin contamination as the patient has no clinical disease to go along with it vancomycin has been discontinued, blood cultures will be repeated to make sure evidence of any persistent bacteremia which may be of any significance. 2patient did have a symptoms of weakness vague urinary symptoms positive UA likely secondary to urinary tract infection from enteric gram-negative pathogen , however the urine cultures currently growing enterococcus 3 ultrasound of the kidney bladder did show large right-sided staghorn calculus no left-sided hydronephrosis 4discontinue Rocephin and start the patient on Unasyn to cover for the enterococcus and monitor clinical course closely Time with Patient: Less than 30
[2022-06-22] MEDS: FERROUS SULFATE 325 MG TAB PO SCH (18:04)
[2022-06-22] MEDS: AMPICILLIN-SULBACTAM 3 GM in SODIUM CHLORIDE 0.9% 100 ML IVPB SCH ×2 (18:04→23:28)
[2022-06-23] MEDS: PANTOPRAZOLE 40 MG TABLET PO SCH (06:20)
[2022-06-23] MEDS: LEVOTHYROXINE 137 MCG TAB PO SCH (06:20)
[2022-06-23] MEDS: CLOPIDOGREL 75 MG TAB PO SCH (08:12)
[2022-06-23] MEDS: ASPIRIN 81 MG PO SCH (08:12)
[2022-06-23] MEDS: FUROSEMIDE 10 MG/ML 4 ML VIAL IV SCH (08:12)
[2022-06-23] MEDS: CALCIUM CARBONATE 500 MG CHEWABLE PO SCH (08:12)
[2022-06-23] MEDS: LORATADINE 10 MG TAB PO SCH (08:12)
[2022-06-23] MEDS: AMPICILLIN-SULBACTAM 3 GM in SODIUM CHLORIDE 0.9% 100 ML IVPB SCH ×2 (08:12→17:09)
[2022-06-23] MEDS: levETIRAcetam 500 MG TAB PO SCH ×2 (08:12→20:49)
[2022-06-23] MEDS: HEPARIN SODIUM,PORCINE/PF 5,000 UNIT/0.5 ML SYRINGE SQ SCH ×2 (08:16→17:09)
[2022-06-23] MEDS: NON FORMULARY DRUG (Mirabegron [Myrbetriq] 50 MG Tab.Er.24h) PO SCH (08:16)
--- NOTE | 2022-06-23 10:12 | XR ---
EXAMINATION TYPE: XR chest 1V portable DATE OF EXAM: 06/23/2022 CLINICAL HISTORY: Difficulty breathing and CHF. TECHNIQUE: Single AP portable upright view of the chest is obtained. COMPARISON: Chest x-ray from 2 days earlier and older studies. FINDINGS: Cardiac silhouette size is stable and within normal limits. Reticular increased markings b ilaterally are present. No suspicious focal airspace opacity, pleural effusion, or pneumothorax seen. Osseous structures are demineralized. IMPRESSION: Mild chronic parenchymal reticular changes without acute pulmonary process currently.
--- NOTE | 2022-06-23 13:22 | P.PN ---
Subjective Progress Note Date: 06/23/22 The patient is a 77-year-old female with a PMH of multiple sclerosis, hypothyroidism, and A. fib, who presents to the emergency room with complaints of not feeling well. Of note, the patient was recently admitted to [facility] from 06/12-06/18 for altered mental status. The patient was treated for UTI and was discharged to the [facility] facility for debility. The patient was discharged on Levaquin 250 mg by mouth for 6 days. Urine culture had grown Providencia Stuartii sensitive to Levaquin. Patient states that soon after returning to the nursing facility, she felt ill and had generalized fatigue. Chest x-ray in the emergency room revealed findings consistent with diffuse interstitial pneumonia slightly worse from prior. EKG revealed sinus tachycardia at 107 bpm with a poor baseline. The patient had a T-max of 100.6 in the emergency room with BP 115/57, pulse 109, respiratory rate 18, and SpO2 98% on room air. Laboratory evaluation was remarkable for leukocytosis of 11.6, lactic acid 1.6, UA consistent with UTI. Patient was admitted for treatment of UTI. Patient was started on Rocephin IV. Her blood culture came back positive for staph epidermidis 2. There is also concerns for volume overload on chest x-ray. She was started on Lasix IV for diuresis. Her repeat blood culture came back positive for gram-positive cocci. Rocephin was switched to Unasyn. Patient was seen and examined this morning. She reports profound weakness. She states that her breathing has improved. She denies any chest pain or palpitations. No nausea or vomiting. No fever or chills. General: non toxic, no distress, appears at stated age, obese Derm: no unusual rashes/lesions, warm, ecchymosis over bilateral upper extremities Head: atraumatic, normocephalic, symmetric Eyes: EOMI, no lid lag, anicteric sclera ENT: Nose and ears atraumatic Neck: No cervical lymphadenopathy, trachea midline, supple Mouth: no lip lesion, mucus membranes moist Cardiovascular: S1S2 reg, no murmur, 1+ ria LE edema Lungs: Decrease breath soundsbilaterally, no accessory muscle use Abdominal: soft, nontender to palpation, no guarding, + wagner catheter Ext: no gross muscle atrophy, no contractures, Neuro: no gross focal neuro deficits Psych: Alert, oriented, appropriate affect #Sepsis related to UTI #Gram-positive bacteremia #Acute kidney injury #Hyponatremia #Hypokalemia Resolved: Diastolic CHF exacerbation Chronic conditions: Possible subclinical seizures, History of kidney stones, History of MS, Atrial fibrillation status post watchman, Normocytic anemia and thrombocytopenia, Hyperbilirubinemia, Hypothyroidism Based on my assessment of this patient, this patient meets a moderate complexity level of care. I have reviewed the following service consultant notes: None. I have reviewed the results of the following tests: Patient has had multiple blood cultures positive for coagulase-negative staph. Blood cultures from 06/19, 06/21 are all positive. I have ordered the following tests: Repeat blood cultures 06/23 CBC and BMP ordered for today and pending at the time of this note. BMP ordered to evaluate renal function. CBC ordered to evaluate leukocytosis. I have discussed the care of this patient with the following independent historian: None. I have independently interpreted the following test below: Chest x-ray shows improved aeration as compared to her previous chest x-ray. I have discussed the management of this patient with the following physician: The case was discussed with Dr. Mac, positive blood culture likely contaminant, repeat blood cultures and pursue further workup if remains positive. This patient has a moderate risk of morbidity due to the following reasons: Patient has an acute diagnosis of sepsis related to UTI along with gram-positive bacteremia that poses a threat to life or bodily function. She was initially started on Rocephin 2 g IV daily. Her blood cultures are positive for staph epidermidis 3. Her urine culture is positive for enterococcus faecalis. Ro cephin has been switched to Unasyn 3 g IV every 6 hours. Plans to repeat blood cultures tomorrow morning. Telemetry monitoring. Infectious disease on board. Her chest x-ray has improved. Echocardiogram shows grade 2 diastolic dysfunction. Her weight has increased from 95 kg on admission 119.5 kg today. She is -700 mL over the past 24 hours. Discontinue Lasix IV today. Her acute kidney injury, hypokalemia and hyponatremia is likely related to forced diuresis. Repeat BMP ordered for tomorrow morning. Objective - Vital Signs Vital signs: Vital Signs Temp 98.5 F 06/23/22 08:00 Pulse 106 H 06/23/22 08:00 Resp 18 04/02/23 08:00 BP 91/54 06/23/22 08:00 Pulse Ox 97 06/23/22 08:00 FiO2 Intake & Output 06/22/22 06/23/22 06/23/22 18:59 06:59 18:59 Output Total 800 700 Balance -800 -700 Weight 119.5 kg Output: Urine 800 700 Other: # Bowel Movements 2 - Labs CBC & Chem 7: 06/22/22 05:37 06/22/22 05:37 Labs: Microbiology - Last 24 Hours (Table) 06/21/22 06:28 Blood Culture Gram Stain - Preliminary Blood Blood Culture - Preliminary Coagulase Negative Staph 06/19/22 18:45 Blood Culture Gram Stain - Final Blood Blood Culture - Final Staphylococcus epidermidis 06/19/22 18:07 Urine Culture - Final Urine,Voided Enterococcus faecalis
[2022-06-23 13:24] LABS: Anisocytosis Slight; HCT 28.4 % (34.0-46.0); HGB 8.8 gm/dL (11.4-16.0); Hypochromasia Marked; MCH 27.2 pg (25.0-35.0); MCHC 30.8 g/dL (31.0-37.0); MCV 88.3 fL (80.0-100.0); Mean Platelet Volume 9.2; Platelet Count 188 k/uL (150-450); Poikilocytosis Moderate; RBC 3.22 m/uL (3.80-5.40); RDW 16.1 % (11.5-15.5); WBC 15.6 k/uL (3.8-10.6)
[2022-06-23 13:28] LABS: African American GFR (CKD) 59 (>60 ml/min/1.73 sqM); Anion Gap 8 mmol/L; Blood Urea Nitrogen 20 mg/dL (7-17); Calcium 7.2 mg/dL (8.4-10.2); Carbon Dioxide 23 mmol/L (22-30); Chloride 98 mmol/L (98-107); Glucose 86 mg/dL (74-99); Non-African American GFR(CKD) 51 (>60 ml/min/1.73 sqM); Potassium 3.5 mmol/L (3.5-5.1); Sodium 129 mmol/L (137-145)
--- NOTE | 2022-06-23 16:41 | P.PN ---
Subjective Progress Note Date: 06/23/22 Principal diagnosis: Enterococcus urinary tract infection Patient is a 77-year-old female presenting to the ER 06/19/2022 from the correction for an episode of not feeling well patient did have a nonspecific symptoms, patient did have a positive UA and also have a fever, patient did have a positive UA concerning for a urinary tract infection also have a positive blood culture has been finalized with staph epi likely contamination. On today's evaluation that is 06/24/2019 the patient remains to be afebrile the patient is breathing comfortably on room air denies any chest pain or shortness of breath or cough no abdominal pain no diarrhea Objective - Vital Signs Vital signs: Vital Signs Temp 98.5 F 06/23/22 14:00 Pulse 115 H 06/23/22 14:00 Resp 20 06/23/22 14:00 BP 96/46 06/23/22 14:00 Pulse Ox 100 06/23/22 14:00 FiO2 Intake & Output 06/22/22 06/23/22 06/23/22 18:59 06:59 18:59 Output Total 800 700 600 Balance -800 -700 -600 Weight 119.5 kg Output: Urine 800 700 600 Other: # Bowel Movements 2 1 - Exam GENERAL DESCRIPTION: An elderly female lying in bed in no distress RESPIRATORY SYSTEM: Unlabored breathing , decreased breath sounds at bases HEART: S1 S2 regular rate and rhythm , ABDOMEN: Soft , no tenderness EXTREMITIES: No edema feet - Labs CBC & Chem 7: 06/23/22 04:01 06/23/22 04:01 Labs: Abnormal Lab Results - Last 24 Hours (Table) 06/23/22 06/23/22 Range/Units 04:01 04:01 WBC 15.6 H (3.8-10.6) k/uL RBC 3.22 L (3.80-5.40) m/uL Hgb 8.8 L (11.4-16.0) gm/dL Hct 28.4 L (34.0-46.0) % MCHC 30.8 L (31.0-37.0) g/dL RDW 16.1 H (11.5-15.5) % Sodium 129 L (137-145) mmol/L BUN 20 H (7-17) mg/dL Creatinine 1.05 H (0.52-1.04) mg/dL Calcium 7.2 L (8.4-10.2) mg/dL Microbiology - Last 24 Hours (Table) 06/19/22 19:00 Blood Culture Gram Stain - Final Blood Blood Culture - Final Staphylococcus epidermidis 06/21/22 06:28 Blood Culture Gram Stain - Preliminary Blood Blood Culture - Preliminary Coagulase Negative Staph 06/19/22 18:45 Blood Culture Gram Stain - Final Blood Blood Culture - Final Staphylococcus epidermidis 06/19/22 18:07 Urine Culture - Final Urine,Voided Enterococcus faecalis Assessment and Plan (1) Urinary tract infection Current Visit: Yes Status: Acute Code(s): N39.0 - URINARY TRACT INFECTION, SITE NOT SPECIFIED SNOMED Code(s): 61009029 Plan: 1patient with a positive blood pressure with the gram-positive cocci has been finalized as staph epi COVID is negative staph likely skin contamination as the patient has no clinical disease to go along with it vancomycin has been discontinued, blood cultures will be repeated which came back positive as well however the patient seemed to have shown clinical improvement without getting treatment for this positive blood cultures discussed with the admitting team we will repeat the blood cultures and inflammatory markers and hold on adding vanc omycin 2patient did have a symptoms of weakness vague urinary symptoms positive UA likely secondary to urinary tract infection from enteric gram-negative pathogen , however the urine cultures currently growing enterococcus, which is penicillin sensitive and the patient continue on Unasyn 3 ultrasound of the kidney bladder did show large right-sided staghorn calculus no left-sided hydronephrosis Time with Patient: Less than 30
[2022-06-23] MEDS: FERROUS SULFATE 325 MG TAB PO SCH (17:09)
[2022-06-24] MEDS: HEPARIN SODIUM,PORCINE/PF 5,000 UNIT/0.5 ML SYRINGE SQ SCH ×4 (00:26→21:02)
[2022-06-24] MEDS: AMPICILLIN-SULBACTAM 3 GM in SODIUM CHLORIDE 0.9% 100 ML IVPB SCH ×3 (00:26→15:41)
[2022-06-24] MEDS: PANTOPRAZOLE 40 MG TABLET PO SCH (06:43)
[2022-06-24] MEDS: LEVOTHYROXINE 137 MCG TAB PO SCH (06:43)
[2022-06-24] MEDS: ASPIRIN 81 MG PO SCH (07:27)
[2022-06-24] MEDS: CLOPIDOGREL 75 MG TAB PO SCH (07:27)
[2022-06-24] MEDS: levETIRAcetam 500 MG TAB PO SCH ×2 (07:27→21:02)
[2022-06-24] MEDS: LORATADINE 10 MG TAB PO SCH (07:28)
[2022-06-24] MEDS: NON FORMULARY DRUG (Mirabegron [Myrbetriq] 50 MG Tab.Er.24h) PO SCH (07:28)
[2022-06-24] MEDS: CALCIUM CARBONATE 500 MG CHEWABLE PO SCH (07:28)
[2022-06-24 07:32] LABS: Anisocytosis Slight; HCT 26.1 % (34.0-46.0); HGB 8.2 gm/dL (11.4-16.0); Hypochromasia Marked; MCH 27.3 pg (25.0-35.0); MCHC 31.4 g/dL (31.0-37.0); MCV 86.8 fL (80.0-100.0); Mean Platelet Volume 7.9; Platelet Count 138 k/uL (150-450); Poikilocytosis Moderate; RDW 16.2 % (11.5-15.5); WBC 12.1 k/uL (3.8-10.6)
[2022-06-24 07:44] LABS: African American GFR (CKD) 63 (>60 ml/min/1.73 sqM); Anion Gap 9 mmol/L; Blood Urea Nitrogen 19 mg/dL (7-17); Calcium 7.1 mg/dL (8.4-10.2); Carbon Dioxide 22 mmol/L (22-30); Chloride 99 mmol/L (98-107); Glucose 85 mg/dL (74-99); Non-African American GFR(CKD) 54 (>60 ml/min/1.73 sqM); Sodium 130 mmol/L (137-145)
[2022-06-24] MEDS ORDERED: POTASSIUM CHLORIDE ER 20 MEQ TAB.ER PO STA (11:42)
--- NOTE | 2022-06-24 16:00 | P.DS ---
Providers Date of admission: 06/19/22 21:10 Expected date of discharge: 06/24/22 Attending physician: Frances Mares MD Consults: 06/20/22 15:26 Consult Physician Routine Consulting Provider: Raeann Mac Consult Reason/Comments: G+ bacteremia Do you want consulting provider notified?: Yes Primary care physician: Samantha Hanson DO Hospital Course: The patient is a 77-year-old female with a PMH of multiple sclerosis, hypothyroidism, and A. fib, who presents to the emergency room with complaints of not feeling well. Of note, the patient was recently admitted to [facility] from 06/12-06/18 for altered mental status. The patient was treated for UTI and was discharged to the custodial facility for debility. The patient was discharged on Levaquin 250 mg by mouth for 6 days. Urine culture had grown Providencia Stuartii sensitive to Levaquin. Patient states that soon after returning to the nursing facility, she felt ill and had generalized fatigue. Chest x-ray in the emergency room revealed findings consistent with diffuse interstitial pneumonia slightly worse from prior. EKG revealed sinus tachycardia at 107 bpm with a poor baseline. The patient had a T-max of 100.6 in the emergency room with BP 115/57, pulse 109, respiratory rate 18, and SpO2 98% on room air. Laboratory evaluation was remarkable for leukocytosis of 11.6, lactic acid 1.6, UA consistent with UTI. Patient was admitted for treatment of UTI. Patient was started on Rocephin IV. Renal ultrasound was negative for hydronephrosis but did show large staghorn calculus in the right kidney. Her blood culture came back positive for staph epidermidis 2. There is also concerns for volume overload on chest x-ray. Echocardiogram showed EF of 60-65% with grade 2 diastolic dysfunction. She was started on Lasix IV for diuresis which was eventually transitioned to Lasix by mouth. Urine culture was positive for 10-50,000 colony enterococcus faecalis. Her repeat blood culture came back positive for gram-positive cocci on 06/19 and 06/21. Rocephin was switched to Unasyn. Repeat blood cultures were negative at 24 hours collected on 06/23. This was thought to be a contaminant by infectious disease. Patient was seen and examined this morning. She reports continued weakness. She states that her breathing has improved. She denies any chest pain or palpitations. No nausea or vomiting. No fever or chills. The case was discussed with Dr. Mac who recommends 7 days of Augmentin by mouth on discharge. I did mention to Dr. Mac that she was previously positive for providencia stuartii which was resistant to Augmentin. Dr. Mac recommended treatment for only Enterococcus as Providencia was not seen on urine culture from this admission. Pertinent studies include chest x-ray, echocardiogram, renal and bladder ultrasound. General: non toxic, no distress, appears at stated age, obese Derm: no unusual rashes/lesions, warm, ecchymosis over bilateral upper extremit ies Head: atraumatic, normocephalic, symmetric Eyes: EOMI, no lid lag, anicteric sclera ENT: Nose and ears atraumatic Neck: No cervical lymphadenopathy, trachea midline, supple Mouth: no lip lesion, mucus membranes moist Cardiovascular: S1S2 reg, no murmur, 1+ ria LE edema Lungs: Decrease breath soundsbilaterally, no accessory muscle use Abdominal: soft, nontender to palpation, no guarding, + wagner catheter Ext: no gross muscle atrophy, no contractures, Neuro: no gross focal neuro deficits Psych: Alert, oriented, appropriate affect Discharge diagnosis: #Sepsis related to UTI #Gram-positive bacteremia #Acute kidney injury #Hyponatremia #Hypokalemia Resolved: Diastolic CHF exacerbation Chronic conditions: 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 Patient Condition at Discharge: Stable Plan - Discharge Summary Discharge Rx Participant: No New Discharge Prescriptions: New Amoxic-Pot Clav 875-125Mg [Augmentin 875-125] 1 tab PO BID 7 Days #14 tab Continue Multivitamins, Thera [Multivitamin (formulary)] 1 tab PO DAILY Lactobacillus Acidophilus [Acidophilus] 1 cap PO DAILY Aspirin 81 mg PO DAILY Spironolactone 25 mg PO DAILY Potassium Chloride ER [K-Dur 20] 20 meq PO BID-W/MEALS Pantoprazole [Protonix] 40 mg PO DAILY Mirabegron [Myrbetriq] 50 mg PO DAILY Melatonin 3 mg PO HS Magnesium Chloride- Calcium 64-106mg 1 tab PO DAILY Clopidogrel [Plavix] 75 mg PO DAILY Loratadine [Claritin] 10 mg PO DAILY Levothyroxine Sodium [Synthroid] 137 mcg PO DAILY@0600 Furosemide [Lasix] 40 mg PO BID@0800,1600 Dextran/Hypromellose/Glycerin [Genteal Tears 0.1%-0.2%-0.3%] 2 drops BOTH EYES BID@0800,1600 Ferrous Sulfate [Iron (65 MG Elemental)] 325 mg PO DAILY@1800 Cranberry Fruit [Cranberry] 465 mg PO BID bisacodyL [Dulcolax] 10 mg PO HS levETIRAcetam [Keppra] 500 mg PO BID Calcium Carbonate [Calcium] 600 mg PO DAILY Discontinued Levofloxacin [Levaquin] 250 mg PO DAILY 6 Days #6 tablet Discharge Medication List Aspirin 81 mg PO DAILY 06/12/22 [History] Clopidogrel [Plavix] 75 mg PO DAILY 06/12/22 [History] Cranberry Fruit [Cranberry] 465 mg PO BID 06/12/22 [History] Dextran/Hypromellose/Glycerin [Genteal Tears 0.1%-0.2%-0.3%] 2 drops BOTH EYES BID@0800,1600 06/12/22 [History] Ferrous Sulfate [Iron (65 MG Elemental)] 325 mg PO DAILY@1800 06/12/22 [History] Furosemide [Lasix] 40 mg PO BID@0800,1600 06/12/22 [History] Lactobacillus Acidophilus [Acidophilus] 1 cap PO DAILY 06/12/22 [History] Levothyroxine Sodium [Synthroid] 137 mcg PO DAILY@0600 06/12/22 [History] Loratadine [Claritin] 10 mg PO DAILY 06/12/22 [History] Magnesium Chloride- Calcium 64-106mg 1 tab PO DAILY 06/12/22 [History] Melatonin 3 mg PO HS 06/12/22 [History] Mirabegron [Myrbetriq] 50 mg PO DAILY 06/12/22 [History] Multivitamins, Thera [Multivitamin (formulary)] 1 tab PO DAILY 06/12/22 [History] Pantoprazole [Protonix] 40 mg PO DAILY 06/12/22 [History] Potassium Chloride ER [K-Dur 20] 20 meq PO BID-W/MEALS 06/12/22 [History] Spironolactone 25 mg PO DAILY 06/12/22 [History] bisacodyL [Dulcolax] 10 mg PO HS 06/12/22 [History] Calcium Carbonate [Calcium] 600 mg PO DAILY 06/19/22 [History] levETIRAcetam [Keppra] 500 mg PO BID 06/19/22 [History] Amoxic-Pot Clav 875-125Mg [Augmentin 875-125] 1 tab PO BID 7 Days #14 tab 06/24/22 [Rx] Follow up Appointment(s)/Referral(s): Samantha Hanson DO [Primary Care Provider] - 1-2 days Activity/Diet/Wound Care/Special Instructions: Diet: Regular Follow up with your PCP within 1-2 days of discharge. Discharge Disposition: TRANSFER TO SNF/ECF
[2022-06-24] MEDS: FERROUS SULFATE 325 MG TAB PO SCH (17:20)
[2022-06-24 19:31] VITALS: TEMP 98.7
--- NOTE | 2022-06-24 21:31 | P.PN ---
Subjective Progress Note Date: 06/24/22 Principal diagnosis: Enterococcus urinary tract infection Patient is a 77-year-old female presenting to the ER 06/19/2022 from the senior care for an episode of not feeling well patient did have a nonspecific symptoms, patient did have a positive UA and also have a fever, patient did have a positive UA concerning for a urinary tract infection also have a positive blood culture has been finalized with staph epi likely contamination. On today's evaluation that is 06/24/2022 the patient continues to be afebrile the patient is breathing comfortably on room air, the pt denies any chest pain or shortness of breath or cough no abdominal pain no diarrhea Objective - Vital Signs Vital signs: Vital Signs Temp 97.9 F 06/24/22 07:05 Pulse 102 H 06/24/22 07:05 Resp 20 06/24/22 08:50 BP 99/46 06/24/22 07:05 Pulse Ox 98 06/24/22 07:05 FiO2 Intake & Output 06/23/22 06/24/22 06/24/22 18:59 06:59 18:59 Output Total 600 Balance -600 Weight 122 kg Output: Urine 600 Other: Voiding Method Diaper Incontinent # Bowel Movements 1 1 - Exam GENERAL DESCRIPTION: An elderly female lying in bed in no distress RESPIRATORY SYSTEM: Unlabored breathing , decreased breath sounds at bases HEART: S1 S2 regular rate and rhythm , ABDOMEN: Soft , no tenderness EXTREMITIES: No edema feet - Labs CBC & Chem 7: 06/24/22 06:28 06/24/22 06:28 Labs: Abnormal Lab Results - Last 24 Hours (Table) 06/23/22 06/23/22 06/24/22 Range/Units 04:01 04:01 06:28 WBC 15.6 H 12.1 H (3.8-10.6) k/uL RBC 3.22 L 3.00 L (3.80-5.40) m/uL Hgb 8.8 L 8.2 L (11.4-16.0) gm/dL Hct 28.4 L 26.1 L (34.0-46.0) % MCHC 30.8 L (31.0-37.0) g/dL RDW 16.1 H 16.2 H (11.5-15.5) % Plt Count 138 L (150-450) k/uL Sodium 129 L (137-145) mmol/L Potassium (3.5-5.1) mmol/L BUN 20 H (7-17) mg/dL Creatinine 1.05 H (0.52-1.04) mg/dL Calcium 7.2 L (8.4-10.2) mg/dL 06/24/22 Range/Units 06:28 WBC (3.8-10.6) k/uL RBC (3.80-5.40) m/uL Hgb (11.4-16.0) gm/dL Hct (34.0-46.0) % MCHC (31.0-37.0) g/dL RDW (11.5-15.5) % Plt Count (150-450) k/uL Sodium 130 L (137-145) mmol/L Potassium 3.0 L (3.5-5.1) mmol/L BUN 19 H (7-17) mg/dL Creatinine (0.52-1.04) mg/dL Calcium 7.1 L (8.4-10.2) mg/dL Microbiology - Last 24 Hours (Table) 06/23/22 04:01 Blood Culture - Preliminary Blood No Growth after 24 hours 06/19/22 19:00 Blood Culture Gram Stain - Final Blood Blood Culture - Final Staphylococcus epidermidis 06/21/22 06:28 Blood Culture Gram Stain - Preliminary Blood Blood Culture - Preliminary Coagulase Negative Staph Assessment and Plan (1) Urinary tract infection Current Visit: Yes Status: Acute Code(s): N39.0 - URINARY TRACT INFECTION, SITE NOT SPECIFIED SNOMED Code(s): 15819175 Plan: 1patient with a positive blood pressure with the gram-positive cocci has been finalized as staph epi COVID is negative staph likely skin contamination as the patient has no clinical disease to go along with it vancomycin has been discontinued, blood cultures will be repeated which came back positive as well however the patient seemed to have shown clinical improvement without getting treatment for this positive blood cultures discussed with the admitting team the blood cultures repeated 06/23/22 has been negative 2ultrasound of the kidney bladder did show large right-sided staghorn calculus no left-sided hydronephrosis 3-patient did have a symptoms of weakness vague urinary symptoms positive UA l ikely secondary to urinary tract infection from enteric gram-negative pathogen , however the urine cultures currently growing enterococcus, which is penicillin sensitive and the patient continue on Unasyn and finish therapy with augmentin x 7 days discussed with admitting team Time with Patient: Less than 30
[2022-06-25] MEDS: AMPICILLIN-SULBACTAM 3 GM in SODIUM CHLORIDE 0.9% 100 ML IVPB SCH ×2 (00:19→10:53)
[2022-06-25] MEDS: LEVOTHYROXINE 137 MCG TAB PO SCH (06:09)
[2022-06-25 08:16] VITALS: BP 96/57; PULSE 107; RESP 20
[2022-06-25] MEDS: levETIRAcetam 500 MG TAB PO SCH (10:52)
[2022-06-25] MEDS: CALCIUM CARBONATE 500 MG CHEWABLE PO SCH (10:52)
[2022-06-25] MEDS: PANTOPRAZOLE 40 MG TABLET PO SCH (10:52)
[2022-06-25] MEDS: LORATADINE 10 MG TAB PO SCH (10:52)
[2022-06-25] MEDS: HEPARIN SODIUM,PORCINE/PF 5,000 UNIT/0.5 ML SYRINGE SQ SCH (10:53)
[2022-06-25] MEDS: ASPIRIN 81 MG PO SCH (10:53)
[2022-06-25] MEDS: CLOPIDOGREL 75 MG TAB PO SCH (10:53)
[2022-06-25] MEDS: NON FORMULARY DRUG (Mirabegron [Myrbetriq] 50 MG Tab.Er.24h) PO SCH (11:06)
--- NOTE | 2022-06-25 11:09 | P.DS ---
Providers Date of admission: 06/19/22 21:10 Expected date of discharge: 06/25/22 Attending physician: Frances Mares MD Consults: 06/20/22 15:26 Consult Physician Routine Consulting Provider: Raeann Mac Consult Reason/Comments: G+ bacteremia Do you want consulting provider notified?: Yes Primary care physician: Samantha Hanson DO Hospital Course: The patient is a 77-year-old female with a PMH of multiple sclerosis, hypothyroidism, and A. fib, who presents to the emergency room with complaints of not feeling well. Of note, the patient was recently admitted to [facility] from 06/12-06/18 for altered mental status. The patient was treated for UTI and was discharged to the senior care facility for debility. The patient was discharged on Levaquin 250 mg by mouth for 6 days. Urine culture had grown Providencia Stuartii sensitive to Levaquin. Patient states that soon after returning to the nursing facility, she felt ill and had generalized fatigue. Chest x-ray in the emergency room revealed findings consistent with diffuse interstitial pneumonia slightly worse from prior. EKG revealed sinus tachycardia at 107 bpm with a poor baseline. The patient had a T-max of 100.6 in the emergency room with BP 115/57, pulse 109, respiratory rate 18, and SpO2 98% on room air. Laboratory evaluation was remarkable for leukocytosis of 11.6, lactic acid 1.6, UA consistent with UTI. Patient was admitted for treatment of UTI. Patient was started on Rocephin IV. Renal ultrasound was negative for hydronephrosis but did show large staghorn calculus in the right kidney. Her blood culture came back positive for staph epidermidis 2. There is also concerns for volume overload on chest x-ray. Echocardiogram showed EF of 60-65% with grade 2 diastolic dysfunction. She was started on Lasix IV for diuresis which was eventually transitioned to Lasix by mouth. Urine culture was positive for 10-50,000 colony enterococcus faecalis. Her repeat blood culture came back positive for gram-positive cocci on 06/19 and 06/21. Rocephin was switched to Unasyn. Repeat blood cultures were negative at 24 hours collected on 06/23. This was thought to be a contaminant by infectious disease. Patient was seen and examined this morning. She reports continued weakness. She states that her breathing has improved. She denies any chest pain or palpitations. No nausea or vomiting. No fever or chills. Patient did have issues with urinary retention, and had wagner catheter replaced. She will be discharged with this in place with plans to remove it closer to end date of abx for trial of void. The case was discussed with Dr. Mac who recommends 7 days of Augmentin by mouth on discharge. Pertinent studies include chest x-ray, echocardiogram, renal and bladder ultrasound. Discharge diagnosis: #Sepsis related to UTI #Gram-positive bacteremia #Acute kidney injury #Hyponatremia #Hypokalemia Resolved: Diastolic CHF exacerbation Chronic conditions: 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 Gen: awake, alert HEENT: normocephalic, atraumatic, good hearing acuity, moist mucous membranes Resp: good air exchange, breathing comfortably with no accessory muscle use CVS: good distal perfusion x 4, GI: soft, NTTP, ND : no SPT, no CVAT, wagner catheter is present MSK: no pitting edema, no clubbing Neuro: non-focal, moving all extremities Psych: cooperative, euthymic mood Patient Condition at Discharge: Good Plan - Discharge Summary Discharge Rx Participant: No New Discharge Prescriptions: New Amoxic-Pot Clav 875-125Mg [Augmentin 875-125] 1 tab PO BID 7 Days #14 tab Continue Multivitamins, Thera [Multivitamin (formulary)] 1 tab PO DAILY Lactobacillus Acidophilus [Acidophilus] 1 cap PO DAILY Aspirin 81 mg PO DAILY Spironolactone 25 mg PO DAILY Potassium Chloride ER [K-Dur 20] 20 meq PO BID-W/MEALS Pantoprazole [Protonix] 40 mg PO DAILY Mirabegron [Myrbetriq] 50 mg PO DAILY Melatonin 3 mg PO HS Magnesium Chloride- Calcium 64-106mg 1 tab PO DAILY Clopidogrel [Plavix] 75 mg PO DAILY Loratadine [Claritin] 10 mg PO DAILY Levothyroxine Sodium [Synthroid] 137 mcg PO DAILY@0600 Furosemide [Lasix] 40 mg PO BID@0800,1600 Dextran/Hypromellose/Glycerin [Genteal Tears 0.1%-0.2%-0.3%] 2 drops BOTH EYES BID@0800,1600 Ferrous Sulfate [Iron (65 MG Elemental)] 325 mg PO DAILY@1800 Cranberry Fruit [Cranberry] 465 mg PO BID bisacodyL [Dulcolax] 10 mg PO HS levETIRAcetam [Keppra] 500 mg PO BID Calcium Carbonate [Calcium] 600 mg PO DAILY Discontinued Levofloxacin [Levaquin] 250 mg PO DAILY 6 Days #6 tablet Discharge Medication List Aspirin 81 mg PO DAILY 06/12/22 [History] Clopidogrel [Plavix] 75 mg PO DAILY 06/12/22 [History] Cranberry Fruit [Cranberry] 465 mg PO BID 06/12/22 [History] Dextran/Hypromellose/Glycerin [Genteal Tears 0.1%-0.2%-0.3%] 2 drops BOTH EYES BID@0800,1600 06/12/22 [History] Ferrous Sulfate [Iron (65 MG Elemental)] 325 mg PO DAILY@1800 06/12/22 [History] Furosemide [Lasix] 40 mg PO BID@0800,1600 06/12/22 [History] Lactobacillus Acidophilus [Acidophilus] 1 cap PO DAILY 06/12/22 [History] Levothyroxine Sodium [Synthroid] 137 mcg PO DAILY@0600 06/12/22 [History] Loratadine [Claritin] 10 mg PO DAILY 06/12/22 [History] Magnesium Chloride- Calcium 64-106mg 1 tab PO DAILY 06/12/22 [History] Melatonin 3 mg PO HS 06/12/22 [History] Mirabegron [Myrbetriq] 50 mg PO DAILY 06/12/22 [History] Multivitamins, Thera [Multivitamin (formulary)] 1 tab PO DAILY 06/12/22 [History] Pantoprazole [Protonix] 40 mg PO DAILY 06/12/22 [History] Potassium Chloride ER [K-Dur 20] 20 meq PO BID-W/MEALS 06/12/22 [History] Spironolactone 25 mg PO DAILY 06/12/22 [History] bisacodyL [Dulcolax] 10 mg PO HS 06/12/22 [History] Calcium Carbonate [Calcium] 600 mg PO DAILY 06/19/22 [History] levETIRAcetam [Keppra] 500 mg PO BID 06/19/22 [History] Amoxic-Pot Clav 875-125Mg [Augmentin 875-125] 1 tab PO BID 7 Days #14 tab 06/24/22 [Rx] Follow up Appointment(s)/Referral(s): Samantha Hanson DO [Primary Care Provider] - 1-2 days (Please call for appointment.) Activity/Diet/Wound Care/Special Instructions: Diet: Regular Follow up with your PCP within 1-2 days of discharge. Discharge Disposition: TRANSFER TO SNF/ECF
--- NOTE | 2022-06-30 17:14 | P.PN ---
Subjective Progress Note Date: 06/25/22 Principal diagnosis: Enterococcus urinary tract infection Patient is a 77-year-old female [facility] well patient did have a nonspecific symptoms, patient did have a positive UA and also have a fever, patient did have a positive UA concerning for a urinary tract infection also have a positive blood culture has been finalized with staph epi likely contamination. On today's evaluation that is 06/25/2022 the patient remains to be afebrile the patient is breathing comfortably on room air, the patient denies any chest pain or shortness of breath and no significant cough, the patient denies having any nausea no vomiting or abdominal pain no diarrhea Objective - Vital Signs Vital signs: Vital Signs Temp 98.7 F 06/25/22 07:27 Pulse 107 H 06/25/22 09:05 Resp 20 06/25/22 09:05 BP 96/57 06/25/22 07:27 Pulse Ox 99 06/25/22 07:27 FiO2 Intake & Output 06/24/22 06/25/22 06/25/22 18:59 06:59 18:59 Intake Total 200 500 Output Total 750 Balance 200 -750 500 Weight 122.5 kg Intake: Oral 200 500 Output: Urine 750 Other: Voiding Method Diaper Indwelling Catheter Diaper Incontinent Indwelling Catheter # Bowel Movements 1 6 - Exam GENERAL DESCRIPTION: An elderly female lying in bed in no distress RESPIRATORY SYSTEM: Unlabored breathing , decreased breath sounds at bases HEART: S1 S2 regular rate and rhythm , ABDOMEN: Soft , no tenderness EXTREMITIES: No edema feet - Labs CBC & Chem 7: 06/24/22 06:28 06/24/22 06:28 Labs: Microbiology - Last 24 Hours (Table) 06/23/22 04:01 Blood Culture - Preliminary Blood No Growth after 48 hours 06/21/22 06:28 Blood Culture Gram Stain - Final Blood Blood Culture - Final Coagulase Negative Staph Assessment and Plan (1) Urinary tract infection Status: Acute Code(s): N39.0 - URINARY TRACT INFECTION, SITE NOT SPECIFIED SNOMED Code(s): 01381616 Plan: 1patient with a positive blood pressure with the gram-positive cocci has been finalized as staph epi COVID is negative staph likely skin contamination as the patient has no clinical disease to go along with it vancomycin has been discontinued, blood cultures will be repeated which came back positive as well however the patient seemed to have shown clinical improvement without getting treatment for this positive blood cultures discussed with the admitting team the blood cultures repeated 06/23/22 has been negative 2ultrasound of the kidney bladder did show large right-sided staghorn calculus no left-sided hydronephrosis 3-patient did have a symptoms of weakness vague urinary symptoms positive UA likely secondary to urinary tract infection from enteric gram-negative pathogen , however the urine cultures currently growing enterococcus, which is penicillin sensitive and the patient seemed to have shown clinical improvement on Unasyn and finish therapy with augmentin x 7 days on discharge Time with Patient: Less than 30
== END 2022-06-25 13:26 | DRG 871 ==
LOC: EC 17:01 → 4SSUR 21:10
PROVIDERS: ADMIT Internal Medicine; ATTEND Internal Medicine
DX: A41.81 Sepsis due to Enterococcus (principal); I50.33 Acute on chronic diastolic (congestive) heart failure; N17.9 Acute kidney failure, unspecified; E87.1 Hypo-osmolality and hyponatremia; J84.9 Interstitial pulmonary disease, unspecified; N39.0 Urinary tract infection, site not specified; Z68.42 Body mass index [BMI] 45.0-49.9, adult; D69.6 Thrombocytopenia, unspecified; G35 Multiple sclerosis; I48.91 Unspecified atrial fibrillation; I11.0 Hypertensive heart disease with heart failure; R56.9 Unspecified convulsions; Z20.822 Contact with and (suspected) exposure to COVID-19; E66.9 Obesity, unspecified; E03.9 Hypothyroidism, unspecified; D64.9 Anemia, unspecified; E87.6 Hypokalemia; N20.0 Calculus of kidney; K21.9 Gastro-esophageal reflux disease without esophagitis; E80.6 Other disorders of bilirubin metabolism; F32.A Depression, unspecified; R32 Unspecified urinary incontinence; Z79.02 Long term (current) use of antithrombotics/antiplatelets; Z79.82 Long term (current) use of aspirin; Z79.890 Hormone replacement therapy; Z79.899 Other long term (current) drug therapy; Z95.818 Presence of other cardiac implants and grafts; Z87.442 Personal history of urinary calculi; Z86.14 Personal history of Methicillin resistant Staphylococcus aureus infection
CPT/HCPCS: 36415; 71045; 71046; 76770; 80048; 80053; 81001; 83605; 83735; 85025; 85027; 85610; 85730; 87040; 87077; 87086; 87186; 87636; 93005; 93306; 94760; 96361; 96374; 99285